=== PATIENT | female | born 1995 | race Caucasian/White ===

== ENCOUNTER 2016-08-27 09:07 | Emergency (ER) | payer OTHER ==
[2016-08-27 09:25] VITALS: BP 113/78; PULSE 63; RESP 17; TEMP 98.3
--- NOTE | 2016-08-27 09:30 | ED ---
ENT HPI - General Chief complaint: ENT Stated complaint: congestion Time Seen by Provider: 08/27/16 09:26 Source: patient, RN notes reviewed Mode of arrival: ambulatory Limitations: no limitations - History of Present Illness Initial comments: 21-year-old female presents emergency Department chief complaint congestion, right ear pressure. Patient states she's been sick over the last few days with runny nose and sinus congestion. Still slight cough but is nonproductive and denies any chest pain or shortness breath. Patient denies fever, chills. Patient has been taken some acetaminophen [id number] for her right ear pain. She states she just feels full and is occasionally popping. She did have one episode of dizziness. Patient denies any sick contacts. Patient offers no other complaints. - Related Data Previous Rx's Medication Instructions Recorded methylPREDNISolone [Medrol Dose 4 mg PO DIRECTED #1 pack 08/27/16 Pack] Allergies Allergy/AdvReac Type Severity Reaction Status Date / Time Penicillins Allergy Rash/Hives Verified 08/27/16 09:34 Review of Systems ROS Statement: Those systems with pertinent positive or pertinent negative responses have been documented in the HPI. ROS Other: All systems not noted in ROS Statement are negative. Past Medical History Past Medical History: No Reported History History of Any Multi-Drug Resistant Organisms: None Reported Past Surgical History: Hernia Repair Past Psychological History: No Psychological Hx Reported Smoking Status: Current every day smoker Past Alcohol Use History: None Reported Past Drug Use History: Marijuana General Exam Limitations: no limitations General appearance: alert, in no apparent distress Head exam: Present: atraumatic, normocephalic, normal inspection Eye exam: Present: normal appearance, PERRL, EOMI. Absent: scleral icterus, conjunctival injection, periorbital swelling ENT exam: Present: normal oropharynx, mucous membranes moist, normal external ear exam. Absent: TM's normal bilaterally (Air-fluid level noted the right TM, no erythema) Neck exam: Present: normal inspection, full ROM. Absent: tenderness, meningismus, lymphadenopathy Respiratory exam: Present: normal lung sounds bilaterally. Absent: respiratory distress, wheezes, rales, rhonchi, stridor Cardiovascular Exam: Present: regular rate, normal rhythm, normal heart sounds. Absent: systolic murmur, diastolic murmur, rubs, gallop, clicks Course Vital Signs 08/27/16 09:22 Temperature 98.3 F Pulse Rate 63 Respiratory 17 Rate Blood Pressure 113/78 O2 Sat by Pulse 100 Oximetry Medical Decision Making - Medical Decision Making 21-year-old female presented for congestion. Patient has a URI. Patient has right eustachian tube dysfunction. She is advised to go [id number] decongestants and [id number] cough and cold medications as directed. Return parameters were discussed. Disposition Clinical Impression: Eustachian tube dysfunction, URI (upper respiratory infection) Disposition: HOME SELF-CARE Condition: Stable Instructions: Earache (ED) Additional Instructions: Please return to the Emergency Department if symptoms worsen or any other concerns. Prescriptions: methylPREDNISolone [Medrol Dose Pack] 4 mg PO DIRECTED #1 pack Referrals: None,Stated [Primary Care Provider] - 1-2 days Time of Disposition: 09:30
== END 2016-08-27 09:57 | disposition home or self-care (01) ==
LOC: EC 09:07
DX: J06.9 Acute upper respiratory infection, unspecified (principal); H69.81 Other specified disorders of Eustachian tube, right ear; F17.200 Nicotine dependence, unspecified, uncomplicated; Z88.0 Allergy status to penicillin
CPT/HCPCS: 99283

== ENCOUNTER 2016-09-14 22:58 | Emergency (ER) | payer OTHER ==
[2016-09-14 23:29] VITALS: RESP 18
[2016-09-14] MEDS ORDERED: SODIUM CHLORIDE 0.9% 500 ML IV STA (23:42)
--- NOTE | 2016-09-15 00:12 | ED ---
Abdominal Pain HPI - General Chief Complaint: Abdominal Pain Stated Complaint: R Flank Pain Time Seen by Provider: 09/14/16 23:42 Source: patient Mode of arrival: ambulatory Limitations: no limitations - History of Present Illness Initial Comments: 21-year-old female patient presents to emergency department today for complaints of right lower quadrant abdominal pain that radiates to her back. Patient states the pain started 3 days ago in her lower back and has now radiated around to the front, and is starting to radiate down into her hip. Patient states that the pain is all across her low back, and feels like it is in her tailbone. Patient states she has been nauseated with this. She denies any vomiting, constipation, or diarrhea. She denies any hematuria, dysuria, any urgency, fever, chills, dizziness, or weakness. Patient states that she is having urinary frequency. Denies any vaginal bleeding, discharge, itching, or odor. Patient's last menstrual period was in July. Patient states that her periods are usually irregular. is a possibility. - Related Data Previous Rx's Medication Instructions Recorded Hydrocodone/Acetaminophen [[place] 1 tab PO Q6HR PRN #15 tab 09/15/16 5-325] Allergies Allergy/AdvReac Type Severity Reaction Status Date / Time Penicillins Allergy Rash/Hives Verified 09/14/16 23:29 Review of Systems ROS Statement: Those systems with pertinent positive or pertinent negative responses have been documented in the HPI. ROS Other: All systems not noted in ROS Statement are negative. Past Medical History Past Medical History: No Reported History History of Any Multi-Drug Resistant Organisms: None Reported Past Surgical History: Hernia Repair Past Psychological History: No Psychological Hx Reported Smoking Status: Current every day smoker Past Alcohol Use History: None Reported Past Drug Use History: Marijuana General Exam Limitations: no limitations General appearance: alert, in no apparent distress Eye exam: Present: normal appearance, PERRL, EOMI. Absent: scleral icterus, conjunctival injection, periorbital swelling ENT exam: Present: normal exam, mucous membranes moist Neck exam: Present: normal inspection. Absent: tenderness, meningismus, lymphadenopathy Respiratory exam: Present: normal lung sounds bilaterally. Absent: respiratory distress, wheezes, rales, rhonchi, stridor Cardiovascular Exam: Present: regular rate, normal rhythm, normal heart sounds. Absent: systolic murmur, diastolic murmur, rubs, gallop, clicks GI/Abdominal exam: Present: soft, tenderness (Right lower quadrant), normal bowel sounds. Absent: distended, guarding, rebound, rigid Expanded GI/Abdominal exam: Present: obturator sign Back exam: Present: normal inspection, other (Negative straight leg test right) . Absent: tenderness, CVA tenderness (R), CVA tenderness (L) Neurological exam: Present: alert, oriented X3, CN II-XII intact Psychiatric exam: Present: normal affect, normal mood Skin exam: Present: warm, dry, intact, normal color. Absent: rash Course Vital Signs 09/14/16 09/15/16 23:27 00:53 Temperature 98.7 F 99.4 F Pulse Rate 60 87 Respiratory 18 18 Rate Blood Pressure 117/78 111/62 O2 Sat by Pulse 97 96 Oximetry Medical Decision Making - Medical Decision Making 21-year-old female patient presented to emergency department today for complaints of right lower quadrant and lower back pain. Lab work was unremarkable other than a white blood cell count of 11.3. Patient states that she has had an elevated white blood cell count since delivering her child. Urinalysis was negative for any acute process. CT of the abdomen and pelvis did show a possible ovarian cyst on the right side. No definite appendicitis shown on CT of the abdomen and pelvis. Patient's symptoms do not seem to be consistent at this time with acute appendicitis. Patient will be discharged home with pain medication as well as instructions about her primary care physician for recheck in one to 2 days. Patient instructed to return immediately for any new, worsening, or concerning symptoms. - Lab Data Result diagrams: 09/15/16 00:16 09/15/16 00:16 Lab Results 09/15/16 09/15/16 09/15/16 Range/Units 00:16 00:16 00:16 WBC 11.3 H (3.8-10.6) k/uL RBC 4.93 (3.80-5.40) m/uL Hgb 13.9 (11.4-16.0) gm/dL Hct 41.6 (34.0-46.0) % MCV 84.5 (80.0-100.0) fL MCH 28.3 (25.0-35.0) pg MCHC 33.4 (31.0-37.0) g/dL RDW 12.8 (11.5-15.5) % Plt Count 203 (150-450) k/uL Neutrophils % 62 % Lymphocytes % 30 % Monocytes % 4 % Eosinophils % 1 % Basophils % 0 % Neutrophils # 7.0 (1.3-7.7) k/uL Lymphocytes # 3.4 (1.0-4.8) k/uL Monocytes # 0.5 (0-1.0) k/uL Eosinophils # 0.1 (0-0.7) k/uL Basophils # 0.1 (0-0.2) k/uL Sodium 139 (137-145) mmol/L Potassium 4.0 (3.5-5.1) mmol/L Chloride 104 (98-107) mmol/L Carbon Dioxide 27 (22-30) mmol/L Anion Gap 8 mmol/L BUN 10 (7-17) mg/dL Creatinine 0.60 (0.52-1.04) mg/dL Est GFR (MDRD) Af Amer >60 (>60 ml/min/1.73 sqM) Est GFR (MDRD) Non-Af >60 (>60 ml/min/1.73 sqM) Glucose 90 (74-99) mg/dL Calcium 9.9 (8.4-10.2) mg/dL Total Bilirubin 0.5 (0.2-1.3) mg/dL AST 29 (14-36) U/L ALT 42 (9-52) U/L Alkaline Phosphatase 54 (38-126) U/L Total Protein 7.3 (6.3-8.2) g/dL Albumin 4.3 (3.5-5.0) g/dL Amylase 47 (30-110) U/L Lipase 68 (23-300) U/L Urine Color Urine Appearance (Clear) Urine pH (5.0-8.0) Ur Specific [place] (1.001-1.035) Urine Protein (Negative) Urine Glucose (UA) (Negative) Urine Ketones (Negative) Urine Blood (Negative) Urine Nitrite (Negative) Urine Bilirubin (Negative) Urine Urobilinogen (<2.0) mg/dL Ur Leukocyte Esterase (Negative) Urine HCG, Qual Not Detected (Not Detectd) 09/15/16 Range/Units 00:16 WBC (3.8-10.6) k/uL RBC (3.80-5.40) m/uL Hgb (11.4-16.0) gm/dL Hct (34.0-46.0) % MCV (80.0-100.0) fL MCH (25.0-35.0) pg MCHC (31.0-37.0) g/dL RDW (11.5-15.5) % Plt Count (150-450) k/uL Neutrophils % % Lymphocytes % % Monocytes % % Eosinophils % % Basophils % % Neutrophils # (1.3-7.7) k/uL Lymphocytes # (1.0-4.8) k/uL Monocytes # (0-1.0) k/uL Eosinophils # (0-0.7) k/uL Basophils # (0-0.2) k/uL Sodium (137-145) mmol/L Potassium (3.5-5.1) mmol/L Chloride (98-107) mmol/L Carbon Dioxide (22-30) mmol/L Anion Gap mmol/L BUN (7-17) mg/dL Creatinine (0.52-1.04) mg/dL Est GFR (MDRD) Af Amer (>60 ml/min/1.73 sqM) Est GFR (MDRD) Non-Af (>60 ml/min/1.73 sqM) Glucose (74-99) mg/dL Calcium (8.4-10.2) mg/dL Total Bilirubin (0.2-1.3) mg/dL AST (14-36) U/L ALT (9-52) U/L Alkaline Phosphatase (38-126) U/L Total Protein (6.3-8.2) g/dL Albumin (3.5-5.0) g/dL Amylase (30-110) U/L Lipase (23-300) U/L Urine Color Colorless Urine Appearance Clear (Clear) Urine pH 6.5 (5.0-8.0) Ur Specific [place] 1.004 (1.001-1.035) Urine Protein Negative (Negative) Urine Glucose (UA) Negative (Negative) Urine Ketones Negative (Negative) Urine Blood Negative (Negative) Urine Nitrite Negative (Negative) Urine Bilirubin Negative (Negative) Urine Urobilinogen <2.0 (<2.0) mg/dL Ur Leukocyte Esterase Negative (Negative) Urine HCG, Qual (Not Detectd) - Radiology Data Radiology results: report reviewed, image reviewed CT abdomen and pelvis impression #1. Small free fluid in the pelvis at 1.6 and a beta peripherally enhancing internally crenulated collapsed left adnexal cyst which likely represents a copious luteal cyst or involuting ovarian cyst. #2 is symmetric heterogeneity of enhancement in the right kidney and delayed imaging may be secondary to a prominent common per 10 as first pass imaging appears grossly normal. Right-sided pyelonephritis not excluded. Correlate with presentation urinalysis is indicated. #3 appendix not definitively identified. A 7.4 mm tubular structure posterior to the cecum were likely represents a decompressed ileal loop any dilated appendix, however, this cannot be entirely certain. There is no radiopaque appendicolith or focal right lower quadrant inflammatory stranding. Correlate with any clinical suspicion for acute appendicitis. Therefore no free air, small bowel infection, colonic wall thickening, hydroureteronephrosis, or biliary ductal dilatation. X-ray abdomen 2 view reveals no radiographic evidence for small bowel structure free air. Single mildly prominent small bowel measuring 2.5 cm in the mid abdomen could be within the spectrum abnormal indicative of mild enteritis versus focal ileus. Gas and stool present throughout the colon to level of the rectum. Possible mild hepatomegaly. Disposition Clinical Impression: Abdominal pain, Back pain, Ovarian cyst Disposition: HOME SELF-CARE Condition: Stable Instructions: Abdominal Pain (ED), Ovarian Cyst (ED) Additional Instructions: Follow-up with primary care physician in one to 2 days for recheck. Take pain medication as directed. Return for any new, worsening, or concerning symptoms. Prescriptions: Hydrocodone/Acetaminophen [[place] 5-325] 1 tab PO Q6HR PRN #15 tab PRN Reason: Pain Referrals: None,Stated [Primary Care Provider] - 1-2 days Time of Disposition: 02:17
[2016-09-15 00:37] LABS: Basophils # (A) 0.1 k/uL (0-0.2); Basophils % (A) 0 %; CH 27.1; CHCM 32.2; Eosinophils # (A) 0.1 k/uL (0-0.7); Eosinophils % (A) 1 %; HCT 41.6 % (34.0-46.0); HDW 2.14; HGB 13.9 gm/dL (11.4-16.0); Luc # (Auto) 0.23; Luc % (Auto) 2; Lymphocytes # (A) 3.4 k/uL (1.0-4.8); Lymphocytes % (A) 30 %; MCH 28.3 pg (25.0-35.0); MCHC 33.4 g/dL (31.0-37.0); MCV 84.5 fL (80.0-100.0); Mean Platelet Volume 7.7; Monocytes # (A) 0.5 k/uL (0-1.0); Monocytes % (A) 4 %; Neutrophils % (A) 62 %; RBC 4.93 m/uL (3.80-5.40); RDW 12.8 % (11.5-15.5); WBC 11.3 k/uL (3.8-10.6); WBC (Perox) 11.25
[2016-09-15 00:40] LABS: Appearance,Urine Clear (Clear); Bilirubin,Urine Negative (Negative); Glucose,Urine (UA) Negative (Negative); Ketones,Urine Negative (Negative); Leukocyte Esterase,Urine Negative (Negative); Nitrite,Urine Negative (Negative); PH, Urine 6.5 (5.0-8.0); Protein,Urine Negative (Negative); Specific Gravity,Urine 1.004 (1.001-1.035); UA Billing (MACRO vs. MICRO) CHEM; Urobilinogen,Urine <2.0 mg/dL (<2.0)
[2016-09-15 00:47] LABS: ALT 42 U/L (9-52); AST 29 U/L (14-36); Alkaline Phosphatase 54 U/L (38-126); Amylase 47 U/L (30-110); Anion Gap 8 mmol/L; Blood Urea Nitrogen 10 mg/dL (7-17); Calcium 9.9 mg/dL (8.4-10.2); Carbon Dioxide 27 mmol/L (22-30); Chloride 104 mmol/L (98-107); Glucose 90 mg/dL (74-99); Non-African American GFR(MDRD) >60 (>60 ml/min/1.73 sqM); Sodium 139 mmol/L (137-145); Total Bilirubin 0.5 mg/dL (0.2-1.3); Total Protein 7.3 g/dL (6.3-8.2)
[2016-09-15] MEDS ORDERED: ONDANSETRON 4 MG/2 ML VIAL IVP STA (00:53)
[2016-09-15] MEDS ORDERED: RX INFO: IV CONTRAST WAS GIVEN 1 EACH MISC MISCELLANE PRN (01:04)
--- NOTE | 2016-09-15 01:07 | XR ---
ADDENDUM - Added by Mykel Borden M.D. on 09/15/2016 1:42 AM (-07:00) Subsequently, CT abdomen/pelvis was performed which showed normal hepatic span without evidence for hepatomegaly. EXAM: XR Abdomen Complete, 2 Views. CLINICAL HISTORY: Low abdominal pain and right flank pain. TECHNIQUE: Frontal view of the abdomen/pelvis with upright view of the abdomen. COMPARISON: No relevant prior studies available. FINDINGS: Intraperitoneal space: No free air on the upright view. Gastrointestinal tract: Gas and stool present throughout the colon to the level of the rectum. A single mildly prominent (2.5 cm) small bowel loop is present in the mid abdomen. No conventional radiographic evidence for small bowel obstruction. Organs: Prominence of the right hepatic lobe suspected (18.5 cm). Bones/joints: Unremarkable. IMPRESSION: 1. No radiographic evidence for small bowel obstruction or free air. 2. Single mildly prominent small bowel loops measuring 2.5 cm in the mid abdomen could be within the spectrum of normal or indicative of mild enteritis versus focal ileus. 3. Gas and stool present throughout the colon to the level of the rectum. 4. Possible mild hepatomegaly.
--- NOTE | 2016-09-15 02:03 | CT ---
EXAM: CT Abdomen and Pelvis With Intravenous Contrast. CLINICAL HISTORY: Low abdominal pain, right flank pain, and nausea TECHNIQUE: Axial computed tomography images of the abdomen and pelvis with intravenous contrast. CTDI is 24.45 mGy and DLP is 954 mGy-cm This CT exam was performed using one or more of the following dose reduction techniques: automated exposure control, adjustment of the mA and/or kV according to patient size, and/or use of iterative reconstruction technique. Coronal and sagittal reformatted images were created and reviewed. CONTRAST: 100 mL of Omnipaque 300 administered intravenously. COMPARISON: Abdominal radiographs 09/15/2016 FINDINGS: Lower thorax: No acute findings. Visualized lung bases are clear and there is no pleural or pericardial effusion. ABDOMEN: Liver: Unremarkable. No intrahepatic biliary ductal dilatation or focal enhancing mass. Gallbladder and bile ducts: Unremarkable. No radiopaque gallstones or common bile duct dilatation. Pancreas: Unremarkable. No ductal dilatation, focal mass, or peripancreatic inflammatory stranding. Spleen: Unremarkable. No splenomegaly. Adrenals: Unremarkable. No mass. Kidneys and ureters: Asymmetric heterogeneity of enhancement in the right kidney on delayed imaging may be secondary to a prominent column of [place]. Pyelonephritis not excluded. No hydronephrosis. Stomach and bowel: Unremarkable. No small bowel obstruction. No bowel wall thickening allowing for underdistention. Appendix: Appendix not discretely identified. A 7.4 mm tubular structure posterior to the cecum (series 3, image 70) may represent a decompressed ileal loop. Dilated appendix not entirely excluded. No focal periappendiceal inflammatory stranding or radiopaque appendicolith. PELVIS: Bladder: Unremarkable. Unremarkable. Reproductive: 1.6 cm peripherally enhancing internally crenulated collapsed left adnexal cyst which likely represents a corpus luteal cyst or involuting ovarian cyst. ABDOMEN and PELVIS: Intraperitoneal space: Small free fluid in the pelvis. No free air. Bones/joints: No acute fracture. No dislocation. Soft tissues: Tiny fat-containing umbilical hernia. Vasculature: Unremarkable. No abdominal aortic aneurysm. Lymph nodes: Unremarkable. No enlarged lymph nodes. IMPRESSION: 1. Small free fluid in the pelvis with 1.6 cm peripherally enhancing internally crenulated collapsed left adnexal cyst which likely represents a corpus luteal cyst or involuting ovarian cyst. Pelvic ultrasound could further assess as indicated. 2. Asymmetric heterogeneity of enhancement in the right kidney on delayed imaging may be secondary to a prominent column of [place] as first pass imaging appears grossly normal. Right-sided pyelonephritis not excluded. Correlate with presentation and urinalysis as indicated. 3. Appendix not definitively identified. A 7.4 mm tubular structure posterior to the cecum (series 3, image 70) more likely represents a decompressed ileal loop than a dilated appendix, however, this cannot be entirely certain. There is no radiopaque appendicolith or focal right lower quadrant inflammatory stranding. Correlate with any clinical suspicion for acute appendicitis. If indicated, followup evaluation with oral or rectal contrast could be performed to assess for appendiceal filling. 4. No free air, small bowel obstruction, colonic wall thickening, hydroureteronephrosis, or biliary ductal dilatation. [employer] 09/15/16 02:11 Verify Receipt Verified receipt with Twila in the ER, report handed to CANDY Lemons on 09/15 02:11 (-04:00)
[2016-09-15 02:17] VITALS: BP 109/56; PULSE 71; TEMP 98.8
== END 2016-09-15 02:20 | disposition home or self-care (01) ==
LOC: EC 22:58
DX: N83.202 Unspecified ovarian cyst, left side (principal); R93.421 Abnormal radiologic findings on diagnostic imaging of right kidney; R10.31 Right lower quadrant pain; M25.559 Pain in unspecified hip; R35.0 Frequency of micturition; R11.0 Nausea; F17.200 Nicotine dependence, unspecified, uncomplicated; Z88.0 Allergy status to penicillin
CPT/HCPCS: 36415; 80053; 82150; 83690; 85025; 81003; 81025; 74000; 74177; 99284; 96374; 96361; J2405; Q9967

== ENCOUNTER 2016-10-18 06:42 | Emergency (ER) | payer OTHER ==
[2016-10-18] MEDS ORDERED: HYDROcodone/APAP 5-325MG 1 EACH TAB PO STA (07:30)
--- NOTE | 2016-10-18 07:39 | ED ---
General Adult HPI - General Chief complaint: Urogenital Stated complaint: female Time Seen by Provider: 10/18/16 07:23 Source: patient, RN notes reviewed, old records reviewed Mode of arrival: ambulatory Limitations: no limitations - History of Present Illness Initial comments: This is a 21-year-old female here for evaluation of bowel pain bowel pressure. Suprapubic abdominal pain. History of a . Patient did have. No shortness normal earlier than normal and about a week ago. Not currently bleeding. No nausea vomiting or diarrhea. No other fevers. No his surgical history - Related Data Previous Rx's Medication Instructions Recorded Nitrofurantoin Monohyd/M-Cryst 100 mg PO Q12HR #10 cap 10/18/16 [Macrobid] Allergies Allergy/AdvReac Type Severity Reaction Status Date / Time Penicillins Allergy Rash/Hives Verified 10/18/16 07:36 Review of Systems ROS Statement: Those systems with pertinent positive or pertinent negative responses have been documented in the HPI. ROS Other: All systems not noted in ROS Statement are negative. Past Medical History Past Medical History: No Reported History History of Any Multi-Drug Resistant Organisms: None Reported Past Surgical History: Hernia Repair Past Psychological History: No Psychological Hx Reported Smoking Status: Current every day smoker Past Alcohol Use History: None Reported Past Drug Use History: Marijuana General Exam Limitations: no limitations General appearance: alert, in no apparent distress Head exam: Present: atraumatic, normocephalic, normal inspection Eye exam: Present: normal appearance, PERRL, EOMI. Absent: scleral icterus, conjunctival injection, periorbital swelling ENT exam: Present: normal exam, mucous membranes moist Neck exam: Present: normal inspection. Absent: tenderness, meningismus, lymphadenopathy Respiratory exam: Present: normal lung sounds bilaterally. Absent: respiratory distress, wheezes, rales, rhonchi, stridor Cardiovascular Exam: Present: regular rate, normal rhythm, normal heart sounds. Absent: systolic murmur, diastolic murmur, rubs, gallop, clicks GI/Abdominal exam: Present: soft, normal bowel sounds. Absent: distended, tenderness, guarding, rebound, rigid Extremities exam: Present: normal inspection, full ROM, normal capillary refill. Absent: tenderness, pedal edema, joint swelling, calf tenderness Back exam: Present: normal inspection Neurological exam: Present: alert, oriented X3, CN II-XII intact Psychiatric exam: Present: normal affect, normal mood Skin exam: Present: warm, dry, intact, normal color. Absent: rash Course Vital Signs 10/18/16 10/18/16 10/18/16 06:45 07:49 09:11 Temperature 97.9 F 97.5 F L 97.6 F Pulse Rate 98 87 79 Respiratory 16 16 16 Rate Blood Pressure 130/63 126/84 120/55 O2 Sat by Pulse 98 98 99 Oximetry Medical Decision Making - Medical Decision Making 21. ER for evaluation of cerumen with bowel pain, positive urinary tract infection, we'll culture urine and started on antibiotics - Lab Data Lab Results 10/18/16 10/18/16 Range/Units 07:34 07:34 Urine Color Yellow Urine Appearance Cloudy H (Clear) Urine pH 6.0 (5.0-8.0) Ur Specific [place] 1.014 (1.001-1.035) Urine Protein 1+ H (Negative) Urine Glucose (UA) Negative (Negative) Urine Ketones Negative (Negative) Urine Blood Moderate H (Negative) Urine Nitrite Positive H (Negative) Urine Bilirubin Negative (Negative) Urine Urobilinogen <2.0 (<2.0) mg/dL Ur Leukocyte Esterase Large H (Negative) Urine RBC >182 H (0-5) /hpf Urine WBC 158 H (0-5) /hpf Urine WBC Clumps Many H (None) /hpf Ur Squamous Epith Cells 1 (0-4) /hpf Urine Bacteria Rare H (None) /hpf Urine HCG, Qual Not Detected (Not Detectd) - Radiology Data Radiology results: report reviewed (Ultrasound pelvis is negative for acute disease), image reviewed Disposition Clinical Impression: Urinary tract infection Disposition: HOME SELF-CARE Condition: Good Instructions: Urinary Tract Infection in Women (ED) Prescriptions: Nitrofurantoin Monohyd/M-Cryst [Macrobid] 100 mg PO Q12HR #10 cap Referrals: None,Stated [Primary Care Provider] - 1-2 days
[2016-10-18 08:00] LABS: Appearance,Urine Cloudy (Clear); Bacteria,Urine Rare /hpf; Bilirubin,Urine Negative (Negative); Glucose,Urine (UA) Negative (Negative); Ketones,Urine Negative (Negative); Leukocyte Esterase,Urine Large (Negative); Nitrite,Urine Positive (Negative); Particle Count 13154; Protein,Urine 1+ (Negative); RBC,Urine >182 /hpf (0-5); Specific Gravity,Urine 1.014 (1.001-1.035); Squamous Epithelial Cell,Urine 1 /hpf (0-4); UA Billing (MACRO vs. MICRO) MICRO; Urobilinogen,Urine <2.0 mg/dL (<2.0); WBC,Urine 158 /hpf (0-5)
[2016-10-18] MEDS ORDERED: cefTRIAXone 250 MG VIAL IM STA (08:18)
[2016-10-18] MEDS ORDERED: AZITHROMYCIN 500 MG TAB PO STA (08:18)
--- NOTE | 2016-10-18 09:17 | US ---
EXAMINATION TYPE: US transvaginal plus Dopplers DATE OF EXAM: 10/18/2016 8:59 AM COMPARISON: NONE CLINICAL HISTORY: 21-year-old female with Pain. Date of LMP: 10/15/16 TECHNIQUE: Multiple transvaginal sonographic images of the pelvis are obtained. Color Doppler and sp ectral waveform analysis of the ovarian arteries and veins. FINDINGS: Uterus: Retroverted measuring 7.0 x 4.0 x 5.1 cm. There is mild myometrial heterogeneity without foca l fibroid. Endometrial Stripe: 0.4 cm Right Ovary: 3.0 x 2.5 x 2.0 cm for a volume of 8.0 mL. Follicular change is present. Satisfactory a rterial and venous flow is demonstrated. Left Ovary: 3.5 x 2.0 x 2.0 cm 4 volume of 7.1 mL. Follicular change is present. Satisfactory arteri al and venous flow is demonstrated. Small amount of left adnexal free fluid is noted probably physiologic. No cul-de-sac free fluid. IMPRESSION: 1. No sonographic evidence for ovarian torsion. Normal-sized ovaries with follicular change on both s ides. 2. Mild myometrial heterogeneity is nonspecific. Correlate for possible diffuse small fibroid change or adenomyosis. 3. Trace left adnexal free fluid likely physiologic.
[2016-10-18 10:16] VITALS: BP 113/66; PULSE 60; RESP 18; TEMP 97.8
== END 2016-10-18 10:16 | disposition home or self-care (01) ==
LOC: EC 06:42
DX: N39.0 Urinary tract infection, site not specified (principal); F17.200 Nicotine dependence, unspecified, uncomplicated; Z88.0 Allergy status to penicillin
CPT/HCPCS: 99284; 96372; 81001; 81025; 87491; 87591; 87086; 93975; 76830; J0696; 87077; 87186

== ENCOUNTER 2017-01-27 19:18 | Emergency (ER) | payer OTHER ==
[2017-01-27 19:49] VITALS: BP 134/75; PULSE 93; RESP 18; TEMP 97.1
--- NOTE | 2017-01-27 20:00 | ED ---
General Adult HPI - General Chief complaint: ENT Stated complaint: ENT Time Seen by Provider: 01/27/17 19:51 Source: patient, RN notes reviewed Mode of arrival: ambulatory Limitations: no limitations - History of Present Illness Initial comments: Patient 21-year-old female who presents emergency room today with a chief complaint of sinus infection. She admits that over the last month she's been congested feeling pressure ears. States that she's feeling a pop when she blows her nose. Does admit to increased rhinorrhea and drainage. States she's been trying some [id number] medications with little relief the symptoms. Patient denies any other complaints. Patient denies any recent fever, chills, shortness of breath, chest pain, back pain, abdominal pain, nausea or vomiting, numbness or tingling, dysuria or hematuria, constipation or diarrhea, headaches or visual changes, or any other complaints. - Related Data Previous Rx's Medication Instructions Recorded Amoxicillin/Potassium Clav 1 each PO Q12HR #20 tab 01/27/17 [Augmentin 875-125 Tablet] Fluticasone Propionate [Flonase 1 - 2 spray EA NOSTRIL DAILY 5 Days 01/27/17 Allergy Relief] Allergies Allergy/AdvReac Type Severity Reaction Status Date / Time Penicillins Allergy Rash/Hives Verified 01/27/17 19:49 Review of Systems ROS Statement: Those systems with pertinent positive or pertinent negative responses have been documented in the HPI. ROS Other: All systems not noted in ROS Statement are negative. Past Medical History Past Medical History: No Reported History History of Any Multi-Drug Resistant Organisms: None Reported Past Surgical History: Hernia Repair Past Psychological History: No Psychological Hx Reported Smoking Status: Current every day smoker Past Alcohol Use History: None Reported Past Drug Use History: Marijuana General Exam - General Exam Comments Initial Comments: General: The patient is awake and alert, in no distress, and does not appear acutely ill. Eye: Pupils are equal, round and reactive to light, extra-ocular movements are intact. No nystagmus. There is normal conjunctiva bilaterally. No signs of icterus. Ears, nose, mouth and throat: There are moist mucous membranes and no oral lesions. Tender over the maxillary sinuses. Neck: The neck is supple, there is no tenderness or JVD. Cardiovascular: There is a regular rate and rhythm. No murmur, rub or gallop is appreciated. Respiratory: Lungs are clear to auscultation, respirations are non-labored, breath sounds are equal. No wheezes, stridor, rales, or rhonchi. Musculoskeletal: Normal ROM, no tenderness. Strength 5/5. Sensation intact. Pulses equal bilaterally 2+. Neurological: A&O x 3. CN II-XII intact, There are no obvious motor or sensory deficits. Coordination appears grossly intact. Speech is normal. Skin: Skin is warm and dry and no rashes or lesions are noted. Psychiatric: Cooperative, appropriate mood & affect, normal judgment. Limitations: no limitations Course Vital Signs 01/27/17 19:48 Temperature 97.1 F L Pulse Rate 93 Respiratory 18 Rate Blood Pressure 134/75 O2 Sat by Pulse 97 Oximetry Medical Decision Making - Medical Decision Making Patient does admit that she's been on Augmentin in the past for sinus infections emotional does have a penicillin ALLERGY which she admits is hives. Patient will be given a prescription for Flonase L long with Augmentin she states she has had before. Advised follow-up family doctor return if any symptoms increase or worsen. Disposition Clinical Impression: Acute sinusitis Disposition: HOME SELF-CARE Condition: Good Instructions: Sinusitis (ED) Additional Instructions: Please use medication as discussed. Please follow-up with family doctor in the next 2 days of symptoms have not improved. Please return to emergency room if the symptoms increase or worsen or for any other concerns. Prescriptions: Amoxicillin/Potassium Clav [Augmentin 875-125 Tablet] 1 each PO Q12HR #20 tab Fluticasone Propionate [Flonase Allergy Relief] 1 - 2 spray EA NOSTRIL DAILY 5 Days Referrals: None,Stated [Primary Care Provider] - 1-2 days Time of Disposition: 19:59
== END 2017-01-27 20:07 | disposition home or self-care (01) ==
LOC: EC 19:18
DX: J01.90 Acute sinusitis, unspecified (principal); F17.200 Nicotine dependence, unspecified, uncomplicated; Z88.0 Allergy status to penicillin
CPT/HCPCS: 99282

== ENCOUNTER 2017-10-19 10:01 | Emergency (ER) | payer BC, OTHER ==
[2017-10-19] MEDS ORDERED: SODIUM CHLORIDE 0.9% 1,000 ML IV STA (10:20)
[2017-10-19] MEDS ORDERED: ONDANSETRON 4 MG/2 ML VIAL IVP STA (10:20)
--- NOTE | 2017-10-19 10:22 | ED ---
General Adult HPI - General Chief complaint: Abdominal Pain Stated complaint: Vomiting Time Seen by Provider: 10/19/17 10:01 Source: patient, RN notes reviewed Mode of arrival: ambulatory Limitations: no limitations - History of Present Illness Initial comments: This is a 22-year-old female who presents emergency Department with chronic upper abdominal pain. Patient stated she started vomiting again today and became very nauseated so she decided come the emergency department. Patient states last time she was here she was told she couldn't ultrasound of her gallbladder but ultrasound was not injured in the middle the night so she is post follow-up if she did not. Patient states his been no diarrhea. Patient states the pain is in the epigastric area. Patient denies any fever chills. Patient denies any dysuria hematuria urinary frequency. Patient denies any difficulty breathing shortness of breath. Patient denies any recent cough. - Related Data Home Medications Medication Instructions Recorded Confirmed Aspirin EC [Ecotrin Low Dose] 81 mg PO DAILY 10/19/17 10/19/17 Allergies Allergy/AdvReac Type Severity Reaction Status Date / Time Penicillins Allergy Rash/Hives Verified 10/19/17 10:17 Review of Systems ROS Statement: Those systems with pertinent positive or pertinent negative responses have been documented in the HPI. ROS Other: All systems not noted in ROS Statement are negative. Past Medical History Past Medical History: No Reported History History of Any Multi-Drug Resistant Organisms: None Reported Past Surgical History: Hernia Repair Past Psychological History: No Psychological Hx Reported Smoking Status: Current every day smoker Past Alcohol Use History: None Reported, Rare Past Drug Use History: Marijuana General Exam - General Exam Comments Initial Comments: GENERAL: Patient is well-developed and well-nourished. Patient is nontoxic and well- hydrated and is in mild distress. ENT: Neck is soft and supple. No significant lymphadenopathy is noted. Oropharynx is clear. Moist mucous membranes. Neck has full range of motion without eliciting any pain. EYES: The sclera were anicteric and conjunctiva were pink and moist. Extraocular movements were intact and pupils were equal round and reactive to light. Eyelids were unremarkable. PULMONARY: Unlabored respirations. Good breath sounds bilaterally. No audible rales rhonchi or wheezing was noted. CARDIOVASCULAR: There is a regular rate and rhythm without any murmurs gallops or rubs. ABDOMEN: Mild epigastric tenderness No palpable organomegaly was noted. There is no palpable pulsatile mass. SKIN: Skin is clear with no lesions or rashes and otherwise unremarkable. NEUROLOGIC: Patient is alert and oriented x3. Cranial nerves II through XII are grossly intact. Motor and sensory are also intact. Normal speech, volume and content. Symmetrical smile. MUSCULOSKELETAL: Normal extremities with adequate strength and full range of motion. No lower extremity swelling or edema. No calf tenderness. LYMPHATICS: No significant lymphadenopathy is noted PSYCHIATRIC: Normal psychiatric evaluation. Normal interpersonal interactions appears functionally intact in deals appropriately with others. No signs of depression. No signs of anxiety. Limitations: no limitations Course Vital Signs 10/19/17 10:13 Temperature 98.5 F Pulse Rate 71 Respiratory 16 Rate Blood Pressure 158/85 O2 Sat by Pulse 95 Oximetry Medical Decision Making - Medical Decision Making Ultrasound shows no acute abnormality - Lab Data Result diagrams: 10/19/17 10:31 10/19/17 10:31 Lab Results 10/19/17 10/19/17 10/19/17 Range/Units 10:21 10:21 10:31 WBC (3.8-10.6) k/uL RBC (3.80-5.40) m/uL Hgb (11.4-16.0) gm/dL Hct (34.0-46.0) % MCV (80.0-100.0) fL MCH (25.0-35.0) pg MCHC (31.0-37.0) g/dL RDW (11.5-15.5) % Plt Count (150-450) k/uL Neutrophils % % Lymphocytes % % Monocytes % % Eosinophils % % Basophils % % Neutrophils # (1.3-7.7) k/uL Lymphocytes # (1.0-4.8) k/uL Monocytes # (0-1.0) k/uL Eosinophils # (0-0.7) k/uL Basophils # (0-0.2) k/uL Sodium 140 (137-145) mmol/L Potassium 4.2 (3.5-5.1) mmol/L Chloride 107 (98-107) mmol/L Carbon Dioxide 20 L (22-30) mmol/L Anion Gap 13 mmol/L BUN 7 (7-17) mg/dL Creatinine 0.58 (0.52-1.04) mg/dL Est GFR (CKD-EPI)AfAm >90 (>60 ml/min/1.73 sqM) Est GFR (CKD-EPI)NonAf >90 (>60 ml/min/1.73 sqM) Glucose 112 H (74-99) mg/dL Calcium 9.7 (8.4-10.2) mg/dL Total Bilirubin 0.5 (0.2-1.3) mg/dL AST 18 (14-36) U/L ALT 30 (9-52) U/L Alkaline Phosphatase 68 (38-126) U/L Total Protein 6.4 (6.3-8.2) g/dL Albumin 4.1 (3.5-5.0) g/dL Amylase 38 (30-110) U/L Lipase 39 (23-300) U/L Urine Color Yellow Urine Appearance Cloudy H (Clear) Urine pH 7.5 (5.0-8.0) Ur Specific Geff 1.022 (1.001-1.035) Urine Protein Trace H (Negative) Urine Glucose (UA) Negative (Negative) Urine Ketones Trace H (Negative) Urine Blood Negative (Negative) Urine Nitrite Negative (Negative) Urine Bilirubin Negative (Negative) Urine Urobilinogen <2.0 (<2.0) mg/dL Ur Leukocyte Esterase Negative (Negative) Urine RBC 2 (0-5) /hpf Urine WBC 1 (0-5) /hpf Ur Squamous Epith Cells 7 H (0-4) /hpf Urine Bacteria Rare H (None) /hpf Urine Mucus Few H (None) /hpf Urine HCG, Qual Not Detected (Not Detectd) 10/19/17 Range/Units 10:31 WBC 12.8 H (3.8-10.6) k/uL RBC 5.75 H (3.80-5.40) m/uL Hgb 15.4 (11.4-16.0) gm/dL Hct 46.8 H (34.0-46.0) % MCV 81.4 (80.0-100.0) fL MCH 26.9 (25.0-35.0) pg MCHC 33.0 (31.0-37.0) g/dL RDW 13.2 (11.5-15.5) % Plt Count 213 (150-450) k/uL Neutrophils % 73 % Lymphocytes % 19 % Monocytes % 5 % Eosinophils % 1 % Basophils % 0 % Neutrophils # 9.4 H (1.3-7.7) k/uL Lymphocytes # 2.5 (1.0-4.8) k/uL Monocytes # 0.6 (0-1.0) k/uL Eosinophils # 0.1 (0-0.7) k/uL Basophils # 0.0 (0-0.2) k/uL Sodium (137-145) mmol/L Potassium (3.5-5.1) mmol/L Chloride (98-107) mmol/L Carbon Dioxide (22-30) mmol/L Anion Gap mmol/L BUN (7-17) mg/dL Creatinine (0.52-1.04) mg/dL Est GFR (CKD-EPI)AfAm (>60 ml/min/1.73 sqM) Est GFR (CKD-EPI)NonAf (>60 ml/min/1.73 sqM) Glucose (74-99) mg/dL Calcium (8.4-10.2) mg/dL Total Bilirubin (0.2-1.3) mg/dL AST (14-36) U/L ALT (9-52) U/L Alkaline Phosphatase (38-126) U/L Total Protein (6.3-8.2) g/dL Albumin (3.5-5.0) g/dL Amylase (30-110) U/L Lipase (23-300) U/L Urine Color Urine Appearance (Clear) Urine pH (5.0-8.0) Ur Specific Geff (1.001-1.035) Urine Protein (Negative) Urine Glucose (UA) (Negative) Urine Ketones (Negative) Urine Blood (Negative) Urine Nitrite (Negative) Urine Bilirubin (Negative) Urine Urobilinogen (<2.0) mg/dL Ur Leukocyte Esterase (Negative) Urine RBC (0-5) /hpf Urine WBC (0-5) /hpf Ur Squamous Epith Cells (0-4) /hpf Urine Bacteria (None) /hpf Urine Mucus (None) /hpf Urine HCG, Qual (Not Detectd) Disposition Clinical Impression: Chronic abdominal pain Disposition: HOME SELF-CARE Condition: Good Instructions: Abdominal Pain (ED) Is patient prescribed a controlled substance at d/c from ED?: No Referrals: None,Stated [Primary Care Provider] - 1-2 days Time of Disposition: 11:55
[2017-10-19 10:41] LABS: Appearance,Urine Cloudy (Clear); Bacteria,Urine Rare /hpf; Bilirubin,Urine Negative (Negative); Blood,Urine Negative (Negative); Color,Urine Yellow; Glucose,Urine (UA) Negative (Negative); Ketones,Urine Trace (Negative); Leukocyte Esterase,Urine Negative (Negative); Mucus,Urine Few /hpf; Nitrite,Urine Negative (Negative); PH, Urine 7.5 (5.0-8.0); Protein,Urine Trace (Negative); RBC,Urine 2 /hpf (0-5); Specific Gravity,Urine 1.022 (1.001-1.035); Squamous Epithelial Cell,Urine 7 /hpf (0-4); Urobilinogen,Urine <2.0 mg/dL (<2.0); WBC,Urine 1 /hpf (0-5)
[2017-10-19 10:58] LABS: ALT 30 U/L (9-52); AST 18 U/L (14-36); Albumin 4.1 g/dL (3.5-5.0); Alkaline Phosphatase 68 U/L (38-126); Amylase 38 U/L (30-110); Anion Gap 13 mmol/L; Basophils % (A) 0 %; Blood Urea Nitrogen 7 mg/dL (7-17); Calcium 9.7 mg/dL (8.4-10.2); Carbon Dioxide 20 mmol/L (22-30); Chloride 107 mmol/L (98-107); Eosinophils # (A) 0.1 k/uL (0-0.7); Eosinophils % (A) 1 %; Glucose 112 mg/dL (74-99); HCT 46.8 % (34.0-46.0); HGB 15.4 gm/dL (11.4-16.0); Lipase 39 U/L (23-300); Lymphocytes # (A) 2.5 k/uL (1.0-4.8); Lymphocytes % (A) 19 %; MCH 26.9 pg (25.0-35.0); MCV 81.4 fL (80.0-100.0); Mean Platelet Volume 7.8; Monocytes # (A) 0.6 k/uL (0-1.0); Monocytes % (A) 5 %; Neutrophils # (A) 9.4 k/uL (1.3-7.7); Neutrophils % (A) 73 %; Platelet Count 213 k/uL (150-450); Potassium 4.2 mmol/L (3.5-5.1); RBC 5.75 m/uL (3.80-5.40); RDW 13.2 % (11.5-15.5); Sodium 140 mmol/L (137-145); Total Bilirubin 0.5 mg/dL (0.2-1.3); Total Protein 6.4 g/dL (6.3-8.2); WBC 12.8 k/uL (3.8-10.6)
--- NOTE | 2017-10-19 11:37 | US ---
EXAMINATION TYPE: US gallbladder DATE OF EXAM: 10/19/2017 COMPARISON: CT 09/15/2016 CLINICAL HISTORY: 22-year-old female Pain. Vomiting. TECHNIQUE: Multiple sonographic images of the right upper quadrant are obtained. FINDINGS: Income Tax Manager notes: Slightly limited exam due to overlying bowel gas EXAM MEASUREMENTS: Liver Length: 14.1 cm Gallbladder Wall: 0.2 cm CBD: 0.5 cm Right Kidney: 10.8 x 3.9 x 5.1 cm Pancreas: Tail obscured by overlying bowel gas, visualized portions show no abnormality Liver: wnl Gallbladder: wnl Evidence for sonographic Santamaria's sign: No CBD: wnl Right Kidney: No hydronephrosis. IMPRESSION: Unremarkable sonographic examination of the right upper quadrant.
[2017-10-19 12:14] VITALS: BP 146/85; PULSE 92; RESP 18; TEMP 98.7
== END 2017-10-19 12:20 | disposition home or self-care (01) ==
LOC: EC 10:01
DX: R10.13 Epigastric pain (principal); G89.29 Other chronic pain; R11.2 Nausea with vomiting, unspecified; F17.200 Nicotine dependence, unspecified, uncomplicated; Z88.0 Allergy status to penicillin; Z79.82 Long term (current) use of aspirin
CPT/HCPCS: 99284; 96374; 96361; 36415; 80053; 82150; 83690; 85025; 81001; 81025; 76705; J2405

== ENCOUNTER 2018-01-28 07:53 | Emergency (ER) | payer BC, OTHER ==
[2018-01-28 07:59] VITALS: RESP 18
[2018-01-28] MEDS ORDERED: KETOROLAC 30 MG/ML 1 ML VIAL IVP STA (08:12)
--- NOTE | 2018-01-28 08:14 | ED ---
Chest Pain HPI - General Chief Complaint: Chest Pain Stated Complaint: Chest pain Time Seen by Provider: 01/28/18 08:00 Source: patient, RN notes reviewed Mode of arrival: ambulatory Limitations: no limitations - History of Present Illness Initial Comments: This is a 22-year-old female presents emergency Department with chief complaint of chest discomfort. She states that she's been having pain in her chest and breast region for a while in which she's been seen her PCP for. She states she has a little breast lump in that she is scheduled for ultrasound but states this morning she woke up and she had pain that was different than she has experienced. She states is a centralized chest pain and it hurts when she takes a deep inspiration or she presses on her chest. Patient reports no fever no chills she does have a slight cough and has had some ongoing congestion issues. Patient has had an echo in the past which show no major abnormalities. Patient denies any reflux, abdominal pain, nausea vomiting. Denies any dizziness. She does admit to some shortness of breath. - Related Data Home Medications Medication Instructions Recorded Confirmed Aspirin EC [Ecotrin Low Dose] 81 mg PO DAILY 10/19/17 10/19/17 Previous Rx's Medication Instructions Recorded Ibuprofen [Motrin] 600 mg PO Q8HR PRN #30 tab 01/28/18 Allergies Allergy/AdvReac Type Severity Reaction Status Date / Time Penicillins Allergy Rash/Hives Verified 01/28/18 07:59 Review of Systems ROS Statement: Those systems with pertinent positive or pertinent negative responses have been documented in the HPI. ROS Other: All systems not noted in ROS Statement are negative. EKG Findings - EKG Comments: EKG Findings:: EKG performed at 8:21 normal sinus rhythm with a rate of 61 IL 178 QRS 88 QT/QTC 402/404 Past Medical History Past Medical History: No Reported History History of Any Multi-Drug Resistant Organisms: None Reported Past Surgical History: Hernia Repair Past Psychological History: No Psychological Hx Reported Smoking Status: Current every day smoker Past Alcohol Use History: Rare Past Drug Use History: Marijuana General Exam Limitations: no limitations General appearance: alert, in no apparent distress Head exam: Present: atraumatic, normocephalic, normal inspection Eye exam: Present: normal appearance, PERRL, EOMI. Absent: scleral icterus, conjunctival injection, periorbital swelling ENT exam: Present: normal exam, normal oropharynx, mucous membranes moist, TM's normal bilaterally Neck exam: Present: normal inspection, full ROM. Absent: tenderness, meningismus, lymphadenopathy Respiratory exam: Present: normal lung sounds bilaterally, chest wall tenderness (Midsternal). Absent: respiratory distress, wheezes, rales, rhonchi , stridor Cardiovascular Exam: Present: regular rate, normal rhythm, normal heart sounds. Absent: systolic murmur, diastolic murmur, rubs, gallop, clicks GI/Abdominal exam: Present: soft, normal bowel sounds. Absent: distended, tenderness, guarding, rebound, rigid Back exam: Absent: CVA tenderness (R), CVA tenderness (L) Skin exam: Present: warm, dry, intact, normal color. Absent: rash Course Vital Signs 01/28/18 07:57 Temperature 98.1 F Pulse Rate 72 Respiratory 18 Rate Blood Pressure 123/84 O2 Sat by Pulse 97 Oximetry Chest Pain MDM - MDM 22-year-old female presented to emergency department for symptoms as chest pain. This was reproducible chest pain worse with deep inspiration. Patient's pain seems more consistent with costochondritis. Patient does have some ongoing left breast pain which she has been evaluated for by ultrasound. This is not nature patient's pain this time. Patient did have lab work and EKG all within normal limits. D-dimer was obtained which is negative and no concern for blood clot at this time. Patient will follow-up PCP and return for any worsening symptoms. Disposition Clinical Impression: Chest wall pain, Costochondritis, acute Disposition: HOME SELF-CARE Condition: Stable Instructions: Costochondritis (ED), Chest Pain (ED) Additional Instructions: Please return to the Emergency Department if symptoms worsen or any other concerns. Prescriptions: Ibuprofen [Motrin] 600 mg PO Q8HR PRN #30 tab PRN Reason: Pain Is patient prescribed a controlled substance at d/c from ED?: No Referrals: Panchito Palumbo MD [Primary Care Provider] - 1-2 days Time of Disposition: 09:51
[2018-01-28] MEDS ORDERED: ONDANSETRON 4 MG/2 ML VIAL IVP STA (08:24)
[2018-01-28 08:47] LABS: Basophils # (A) 0.1 k/uL (0-0.2); Basophils % (A) 1 %; Eosinophils # (A) 0.4 k/uL (0-0.7); Eosinophils % (A) 4 %; HCT 41.5 % (34.0-46.0); HGB 13.1 gm/dL (11.4-16.0); Lymphocytes # (A) 3.1 k/uL (1.0-4.8); Lymphocytes % (A) 30 %; MCH 26.4 pg (25.0-35.0); MCHC 31.6 g/dL (31.0-37.0); MCV 83.5 fL (80.0-100.0); Mean Platelet Volume 7.4; Monocytes # (A) 0.5 k/uL (0-1.0); Monocytes % (A) 5 %; Neutrophils # (A) 5.9 k/uL (1.3-7.7); Neutrophils % (A) 58 %; Platelet Count 244 k/uL (150-450); RBC 4.97 m/uL (3.80-5.40); RDW 13.6 % (11.5-15.5); WBC 10.1 k/uL (3.8-10.6)
[2018-01-28 08:57] LABS: ALT 24 U/L (9-52); AST 16 U/L (14-36); Albumin 3.9 g/dL (3.5-5.0); Alkaline Phosphatase 66 U/L (38-126); Anion Gap 8 mmol/L; Blood Urea Nitrogen 13 mg/dL (7-17); Calcium 9.6 mg/dL (8.4-10.2); Carbon Dioxide 21 mmol/L (22-30); Chloride 110 mmol/L (98-107); Glucose 105 mg/dL (74-99); Magnesium 1.7 mg/dL (1.6-2.3); Potassium 4.5 mmol/L (3.5-5.1); Sodium 139 mmol/L (137-145); Total Bilirubin 0.2 mg/dL (0.2-1.3); Total Protein 6.7 g/dL (6.3-8.2)
[2018-01-28 08:59] LABS: D-Dimer 0.25 mg/L FEU (<0.60); Partial Thromboplastin Time 24.1 sec (22.0-30.0); Prothrombin Time 9.9 sec (9.0-12.0)
[2018-01-28 09:14] LABS: Appearance,Urine Cloudy (Clear); Bilirubin,Urine Negative (Negative); Blood,Urine Negative (Negative); Color,Urine Light Yellow; Glucose,Urine (UA) Negative (Negative); Ketones,Urine Negative (Negative); Leukocyte Esterase,Urine Negative (Negative); Mucus,Urine Rare /hpf; Nitrite,Urine Negative (Negative); PH, Urine 5.5 (5.0-8.0); Protein,Urine Negative (Negative); RBC,Urine <1 /hpf (0-5); Specific Gravity,Urine 1.018 (1.001-1.035); Squamous Epithelial Cell,Urine 10 /hpf (0-4); Urobilinogen,Urine <2.0 mg/dL (<2.0); WBC,Urine <1 /hpf (0-5)
--- NOTE | 2018-01-28 09:19 | XR ---
EXAMINATION TYPE: XR chest 2V DATE OF EXAM: 01/28/2018 HISTORY: Chest Pain. REFERENCE: Previous study dated 05/13/2017. FINDINGS: The lungs are clear. Pleural spaces are clear. The heart is not enlarged. IMPRESSION: NORMAL CHEST.
[2018-01-28 10:02] VITALS: BP 114/59; PULSE 54; TEMP 98.2
== END 2018-01-28 10:02 | disposition home or self-care (01) ==
LOC: EC 07:53
DX: M94.0 Chondrocostal junction syndrome [Tietze] (principal); R05 Cough; F17.200 Nicotine dependence, unspecified, uncomplicated; Z98.890 Other specified postprocedural states; Z79.82 Long term (current) use of aspirin; Z88.0 Allergy status to penicillin
CPT/HCPCS: 36415; 93005; 85379; 80053; 83735; 84484; 85025; 85610; 85730; 81001; 81025; 71046; 99285; 96374; 96375; J2405; J1885

== ENCOUNTER → 2018-02-08 | Outpatient (CLI) | payer BC, OTHER ==
--- NOTE | 2018-02-08 09:24 | USB ---
Reason for exam: clinical finding. History: Family history of breast cancer in maternal aunt at age 30 and breast cancer in paternal aunt at age 50. Indicated problem(s): pain in the left breast. Physical Findings: Nurse did not find any significant physical abnormalities on exam. US Breast LT Left complete breast ultrasound includes all four quadrants, the retroareolar region and axilla. Finding demonstrates dilated ducts at posterior nipple. No cystic or solid lesion seen. These results were verbally communicated with the patient and result sheet given to the patient on 02/08/18. ASSESSMENT: Negative, BI-RAD 1 RECOMMENDATION: Routine screening mammogram of both breasts at age 40. (unless clinical indication to start sooner) Manage on a clinical basis with regard to left breast pain.
== END | disposition home or self-care (01) ==
LOC: RADUSWWP 08:23
PROVIDERS: ATTEND Family Medicine
DX: N64.4 Mastodynia (principal)

== ENCOUNTER 2018-03-25 05:51 | Emergency (ER) | payer BC, OTHER ==
--- NOTE | 2018-03-25 06:25 | ED ---
Abdominal Pain HPI - General Source: patient Mode of arrival: ambulatory Limitations: no limitations <Corinne Kowalski - Last Filed: 03/25/18 07:46> <Go Le - Last Filed: 03/25/18 08:50> - General Chief Complaint: Abdominal Pain Stated Complaint: Abdominal Pain Time Seen by Provider: 03/25/18 05:56 - History of Present Illness Initial Comments: Car Dee is a 23-year-old female who presents the emergency department today for evaluation of sudden onset cramping lower abdominal pain. Patient reports she she was at her usual state of health yesterday. She reports she woke from sleep around 5 AM the urge to urinate. She states that when she went to the bathroom she had severe stabbing suprapubic and right lower quadrant pain. Pain was so severe she was unable to urinate. Patient reports she has a history of ovarian cysts but this was significantly more severe than previous cysts rupture. Patient reports her last menstrual period was on February 04, she states that she has irregular menses and has been tying to conceive for 2 years unsuccessfully. Patient is uncertain if she could be at this time. She denies any associated fevers, chills, nausea or vomiting. She denies any pain radiating to her flanks. She denies any concern for sexual transmitted infections. She reports that she feels she's had some clear vaginal discharge recently. (Corinne Kowalski) - Related Data Home Medications Medication Instructions Recorded Confirmed Aspirin EC [Ecotrin Low Dose] 81 mg PO DAILY 10/19/17 10/19/17 Previous Rx's Medication Instructions Recorded Ibuprofen [Motrin] 600 mg PO Q8HR PRN #30 tab 01/28/18 Ibuprofen 800 mg PO Q6HR PRN #20 tablet 03/25/18 Allergies Allergy/AdvReac Type Severity Reaction Status Date / Time Penicillins Allergy Rash/Hives Verified 01/28/18 07:59 Review of Systems ROS Other: All systems not noted in ROS Statement are negative. <Corinne Kowalski - Last Filed: 03/25/18 07:46> ROS Other: All systems not noted in ROS Statement are negative. <Go Le - Last Filed: 03/25/18 08:50> ROS Statement: Those systems with pertinent positive or pertinent negative responses have been documented in the HPI. Past Medical History Past Medical History: No Reported History History of Any Multi-Drug Resistant Organisms: None Reported Past Surgical History: Hernia Repair Past Psychological History: No Psychological Hx Reported Smoking Status: Current every day smoker Past Alcohol Use History: Rare Past Drug Use History: Marijuana <Corinne Kowalski - Last Filed: 03/25/18 07:46> General Exam Limitations: no limitations <Corinne Kowalski - Last Filed: 03/25/18 07:46> <Go Le - Last Filed: 03/25/18 08:50> - General Exam Comments Initial Comments: Physical Exam GENERAL: Patient is well-developed and well-nourished. Patient is nontoxic and well- hydrated and is in no distress. HENT: Normocephalic, Atraumatic. EYES: PERRL, EOMI PULMONARY: Unlabored respirations. No audible rales rhonchi or wheezing was noted. CARDIOVASCULAR: There is a regular rate and rhythm without any murmurs gallops or rubs. ABDOMEN: Soft and nontender with normal bowel sounds. SKIN: Skin is clear with no lesions or rashes and otherwise unremarkable. : Deferred NEUROLOGIC: Patient is alert and oriented x3. Moving all extremities spontaneously MUSCULOSKELETAL: Normal extremities with adequate strength and full range of motion. No lower extremity swelling or edema. No calf tenderness. PSYCHIATRIC: Normal psychiatric evaluation. Limitations: no limitations (Croinne Kowalski) Course <Corinne Kowalski - Last Filed: 03/25/18 07:46> <Go Le - Last Filed: 03/25/18 08:50> Vital Signs 03/25/18 03/25/18 03/25/18 05:52 06:21 06:30 Temperature 96.9 F L Pulse Rate 65 Respiratory 16 Rate Blood Pressure 119/63 104/74 O2 Sat by Pulse 100 100 97 Oximetry 03/25/18 07:00 Temperature Pulse Rate Respiratory Rate Blood Pressure 112/74 O2 Sat by Pulse 98 Oximetry - Reevaluation(s) Reevaluation #1: Patient reevaluated, resting comfortably awaiting ultrasound 03/25/18 07:16 (Corinne Kowalski) Reevaluation #2: 03/25/18 08:48 Patient is having a little more pain at this time I did discuss the findings with her. There is an area of decreased echogenicity the right ovary not clearly from the ovary 2.5 x 2.2 x 1.9 cm. No evidence torsion. I did discuss the case with her and her as well as with Dr. Macario the patient will follow-up this week for further evaluation. (Go Le) Medical Decision Making - Lab Data Result diagrams: 03/25/18 06:48 03/25/18 06:48 <Corinne Kowalski - Last Filed: 03/25/18 07:46> - Lab Data Result diagrams: 03/25/18 06:48 03/25/18 06:48 <Go Le - Last Filed: 03/25/18 08:50> - Medical Decision Making History was obtained from the patient, patient with a history of ovarian cysts in the past. Reports she had a sudden onset of right lower quadrant suprapubic pain. Pain is improved prior to arrival. Urinalysis with no signs of infection, no hematuria suggestive of a kidney stone , urine negative Labs and ultrasound imaging were ordered Labs and no significant abnormalities, no leukocytosis, no elevation of the CRP , normal kidney function Patient care was signed out to Dr. noe at 7:30 AM, he will follow up on the ultrasound and despite the patient. (Corinne Kowalski) - Lab Data Lab Results 03/25/18 03/25/18 03/25/18 Range/Units 06:14 06:14 06:48 WBC (3.8-10.6) k/uL RBC (3.80-5.40) m/uL Hgb (11.4-16.0) gm/dL Hct (34.0-46.0) % MCV (80.0-100.0) fL MCH (25.0-35.0) pg MCHC (31.0-37.0) g/dL RDW (11.5-15.5) % Plt Count (150-450) k/uL Neutrophils % % Lymphocytes % % Monocytes % % Eosinophils % % Basophils % % Neutrophils # (1.3-7.7) k/uL Lymphocytes # (1.0-4.8) k/uL Monocytes # (0-1.0) k/uL Eosinophils # (0-0.7) k/uL Basophils # (0-0.2) k/uL Sodium 137 (137-145) mmol/L Potassium 4.6 (3.5-5.1) mmol/L Chloride 106 (98-107) mmol/L Carbon Dioxide 22 (22-30) mmol/L Anion Gap 9 mmol/L BUN 12 (7-17) mg/dL Creatinine 0.54 (0.52-1.04) mg/dL Est GFR (CKD-EPI)AfAm >90 (>60 ml/min/1.73 sqM) Est GFR (CKD-EPI)NonAf >90 (>60 ml/min/1.73 sqM) Glucose 103 H (74-99) mg/dL Calcium 9.4 (8.4-10.2) mg/dL Total Bilirubin 0.3 (0.2-1.3) mg/dL AST 22 (14-36) U/L ALT 35 (9-52) U/L Alkaline Phosphatase 60 (38-126) U/L C-Reactive Protein <5.0 (<10.0) mg/L Total Protein 6.9 (6.3-8.2) g/dL Albumin 3.9 (3.5-5.0) g/dL Urine Color Yellow Urine Appearance Cloudy H (Clear) Urine pH 6.0 (5.0-8.0) Ur Specific [place] 1.016 (1.001-1.035) Urine Protein Negative (Negative) Urine Glucose (UA) Negative (Negative) Urine Ketones Negative (Negative) Urine Blood Negative (Negative) Urine Nitrite Negative (Negative) Urine Bilirubin Negative (Negative) Urine Urobilinogen <2.0 (<2.0) mg/dL Ur Leukocyte Esterase Negative (Negative) Urine RBC 1 (0-5) /hpf Urine WBC 1 (0-5) /hpf Ur Squamous Epith Cells 4 (0-4) /hpf Urine Bacteria Rare H (None) /hpf Urine Mucus Rare H (None) /hpf Urine HCG, Qual Not Detected (Not Detectd) 03/25/18 Range/Units 06:48 WBC 9.8 (3.8-10.6) k/uL RBC 4.97 (3.80-5.40) m/uL Hgb 13.5 (11.4-16.0) gm/dL Hct 41.2 (34.0-46.0) % MCV 82.8 (80.0-100.0) fL MCH 27.2 (25.0-35.0) pg MCHC 32.8 (31.0-37.0) g/dL RDW 14.2 (11.5-15.5) % Plt Count 262 (150-450) k/uL Neutrophils % 53 % Lymphocytes % 35 % Monocytes % 5 % Eosinophils % 5 % Basophils % 1 % Neutrophils # 5.2 (1.3-7.7) k/uL Lymphocytes # 3.4 (1.0-4.8) k/uL Monocytes # 0.5 (0-1.0) k/uL Eosinophils # 0.5 (0-0.7) k/uL Basophils # 0.1 (0-0.2) k/uL Sodium (137-145) mmol/L Potassium (3.5-5.1) mmol/L Chloride (98-107) mmol/L Carbon Dioxide (22-30) mmol/L Anion Gap mmol/L BUN (7-17) mg/dL Creatinine (0.52-1.04) mg/dL Est GFR (CKD-EPI)AfAm (>60 ml/min/1.73 sqM) Est GFR (CKD-EPI)NonAf (>60 ml/min/1.73 sqM) Glucose (74-99) mg/dL Calcium (8.4-10.2) mg/dL Total Bilirubin (0.2-1.3) mg/dL AST (14-36) U/L ALT (9-52) U/L Alkaline Phosphatase (38-126) U/L C-Reactive Protein (<10.0) mg/L Total Protein (6.3-8.2) g/dL Albumin (3.5-5.0) g/dL Urine Color Urine Appearance (Clear) Urine pH (5.0-8.0) Ur Specific [place] (1.001-1.035) Urine Protein (Negative) Urine Glucose (UA) (Negative) Urine Ketones (Negative) Urine Blood (Negative) Urine Nitrite (Negative) Urine Bilirubin (Negative) Urine Urobilinogen (<2.0) mg/dL Ur Leukocyte Esterase (Negative) Urine RBC (0-5) /hpf Urine WBC (0-5) /hpf Ur Squamous Epith Cells (0-4) /hpf Urine Bacteria (None) /hpf Urine Mucus (None) /hpf Urine HCG, Qual (Not Detectd) Disposition <Corinne Kowalski - Last Filed: 03/25/18 07:46> Is patient prescribed a controlled substance at d/c from ED?: No <Go Le - Last Filed: 03/25/18 08:50> Clinical Impression: Pelvic pain, Hemorrhagic cyst of right ovary Disposition: HOME SELF-CARE Condition: Good Instructions: Pelvic Pain in Women (ED), Ovarian Cyst (ED) Prescriptions: Ibuprofen 800 mg PO Q6HR PRN #20 tablet PRN Reason: Pain Referrals: Panchito Palumbo MD [Primary Care Provider] - 1-2 days
[2018-03-25 06:31] LABS: Appearance,Urine Cloudy (Clear); Bacteria,Urine Rare /hpf; Bilirubin,Urine Negative (Negative); Blood,Urine Negative (Negative); Color,Urine Yellow; Glucose,Urine (UA) Negative (Negative); Ketones,Urine Negative (Negative); Leukocyte Esterase,Urine Negative (Negative); Mucus,Urine Rare /hpf; Nitrite,Urine Negative (Negative); Protein,Urine Negative (Negative); RBC,Urine 1 /hpf (0-5); Specific Gravity,Urine 1.016 (1.001-1.035); Squamous Epithelial Cell,Urine 4 /hpf (0-4); Urobilinogen,Urine <2.0 mg/dL (<2.0); WBC,Urine 1 /hpf (0-5)
[2018-03-25 07:02] LABS: Basophils # (A) 0.1 k/uL (0-0.2); Basophils % (A) 1 %; Eosinophils # (A) 0.5 k/uL (0-0.7); Eosinophils % (A) 5 %; HCT 41.2 % (34.0-46.0); HGB 13.5 gm/dL (11.4-16.0); Lymphocytes # (A) 3.4 k/uL (1.0-4.8); Lymphocytes % (A) 35 %; MCH 27.2 pg (25.0-35.0); MCHC 32.8 g/dL (31.0-37.0); MCV 82.8 fL (80.0-100.0); Monocytes # (A) 0.5 k/uL (0-1.0); Monocytes % (A) 5 %; Neutrophils # (A) 5.2 k/uL (1.3-7.7); Neutrophils % (A) 53 %; Platelet Count 262 k/uL (150-450); RBC 4.97 m/uL (3.80-5.40); RDW 14.2 % (11.5-15.5); WBC 9.8 k/uL (3.8-10.6)
[2018-03-25 07:14] LABS: ALT 35 U/L (9-52); AST 22 U/L (14-36); Albumin 3.9 g/dL (3.5-5.0); Alkaline Phosphatase 60 U/L (38-126); Anion Gap 9 mmol/L; Blood Urea Nitrogen 12 mg/dL (7-17); C Reactive Protein <5.0 mg/L (<10.0); Calcium 9.4 mg/dL (8.4-10.2); Carbon Dioxide 22 mmol/L (22-30); Chloride 106 mmol/L (98-107); Glucose 103 mg/dL (74-99); Potassium 4.6 mmol/L (3.5-5.1); Sodium 137 mmol/L (137-145); Total Bilirubin 0.3 mg/dL (0.2-1.3); Total Protein 6.9 g/dL (6.3-8.2)
--- NOTE | 2018-03-25 08:12 | US ---
EXAMINATION TYPE: US transvaginal DATE OF EXAM: 03/25/2018 COMPARISON: Previous study dated 10/18/2016. CLINICAL HISTORY: Pain. Generalized pain TECHNIQUE: Transvaginal (TV). Date of LMP: 02/17/2018, EXAM MEASUREMENTS: Uterus: 6.6 x 4.5 x 3.9 cm Endometrial Stripe: 1.1 cm Right Ovary: 3.6 x 3.0 x 2.5 cm Left Ovary: 3.2 x 1.9 x 2.4 cm 1. Uterus: Retroverted Heterogenous 2. Endometrium: wnl 3. Right Ovary: Hypoechoic lesion seen - 2.5 x 2.2 x 1.9 cm 4. Left Ovary: follicles seen Spectral, color and waveform doppler imaging shows good arterial and venous flow within the ovaries ; there is no evidence for ovarian torsion. 5. Bilateral Adnexa: free fluid seen in left adx 6. Posterior cul-de-sac: free fluid seen IMPRESSION: 1. AREA OF DECREASED ECHOGENICITY IN THE RIGHT OVARY IS NOT CLEARLY FROM THE OVARY. SHORT-T ERM FOLLOW-UP WOULD BE SUGGESTED. 2. SMALL AMOUNT OF FREE FLUID WITHIN THE CUL-DE-SAC.
--- NOTE | 2018-03-25 08:12 | US ---
EXAMINATION TYPE: US abdomen APPY DATE OF EXAM: 03/25/2018 COMPARISON: None. CLINICAL HISTORY: Pain. Generalized lower abd pain APPENDIX Is the appendix seen in its entirety from the proximal cecum to distal end: No tubular structure vis ualized in RLQ Is there inflammatory changes or free fluid present: No free fluid seen IMPRESSION: NONDIAGNOSTIC RIGHT LOWER QUADRANT ULTRASOUND.
[2018-03-25] MEDS ORDERED: KETOROLAC 30 MG/ML 1 ML VIAL IVP STA (08:47)
[2018-03-25 09:14] VITALS: BP 118/74; PULSE 70; RESP 18; TEMP 98.4
== END 2018-03-25 09:08 | disposition home or self-care (01) ==
LOC: EC 05:51
DX: N83.201 Unspecified ovarian cyst, right side (principal); N92.6 Irregular menstruation, unspecified; Z32.02 Encounter for pregnancy test, result negative; F17.200 Nicotine dependence, unspecified, uncomplicated; Z88.0 Allergy status to penicillin; Z79.82 Long term (current) use of aspirin
CPT/HCPCS: 36415; 80053; 85025; 86140; 81001; 81025; 93975; 76705; 76830; 99284; 96374; J1885

== ENCOUNTER 2018-07-18 02:30 | Emergency (ER) | payer BC, OTHER ==
[2018-07-18 02:47] VITALS: BP 122/65; PULSE 103; RESP 18; TEMP 100.2
[2018-07-18] MEDS ORDERED: IBUPROFEN 600 MG TAB PO STA (03:02)
[2018-07-18] MEDS ORDERED: ONDANSETRON ODT 4 MG TAB PO STA (03:02)
[2018-07-18] MEDS ORDERED: guaiFENesin-DM 600/30MG 1 EACH TAB.ER.12H PO STA (03:02)
--- NOTE | 2018-07-18 03:07 | ED ---
URI HPI - General Chief Complaint: Upper Respiratory Infection Stated Complaint: cough, chest congestion Time Seen by Provider: 07/18/18 02:56 Source: patient Mode of arrival: ambulatory Limitations: no limitations - History of Present Illness Initial Comments: 23-year-old female patient presents to the emergency department today for complaints of cough, sore throat, nasal drainage. Patient states symptoms started yesterday. States she has been having elevated temperatures. States that she has had some posttussive vomiting today. She is coughing up clear sputum. She does smoke cigarettes. She denies any hemoptysis. She states she did not receive a flu vaccine this season. States she is otherwise healthy. Patient denies any recent rash, abdominal pain, diarrhea, constipation, back pain, numbness, tingling, dizziness, weakness, hematuria, dysuria, urinary urgency, urinary frequency, headache, visual changes, or any other complaints. States there is a chance she could be . - Related Data Home Medications Medication Instructions Recorded Confirmed Aspirin EC [Ecotrin Low Dose] 81 mg PO DAILY 10/19/17 10/19/17 Previous Rx's Medication Instructions Recorded Ibuprofen [Motrin] 600 mg PO Q8HR PRN #30 tab 01/28/18 Ibuprofen 800 mg PO Q6HR PRN #20 tablet 03/25/18 Oseltamivir [Tamiflu] 75 mg PO Q12HR #10 cap 07/18/18 guaiFENesin-DM 600/30MG [Mucinex 1 each PO Q12HR #10 tab.er.12h 07/18/18 Dm] Allergies Allergy/AdvReac Type Severity Reaction Status Date / Time Penicillins Allergy Rash/Hives Verified 07/18/18 02:47 Review of Systems ROS Statement: Those systems with pertinent positive or pertinent negative responses have been documented in the HPI. ROS Other: All systems not noted in ROS Statement are negative. Past Medical History Past Medical History: No Reported History History of Any Multi-Drug Resistant Organisms: None Reported Past Surgical History: Hernia Repair Additional Past Surgical History / Comment(s): lathoscopy Past Psychological History: No Psychological Hx Reported Smoking Status: Current every day smoker Past Alcohol Use History: Rare Past Drug Use History: Marijuana General Exam Limitations: no limitations General appearance: alert, in no apparent distress, other (This is a well- developed, well-nourished adult female patient in no acute distress. Vital signs upon presentation are temperature 100.2F, pulse 103, respirations 18, blood pressure 122/65, pulse ox 96% on room air.) Eye exam: Present: normal appearance, PERRL, EOMI. Absent: scleral icterus, conjunctival injection, periorbital swelling ENT exam: Present: mucous membranes moist, TM's normal bilaterally (Pearly, no effusion, no injection). Absent: normal exam, normal oropharynx (Pharyngeal erythema, tonsillar hypertrophy) Neck exam: Present: normal inspection. Absent: tenderness, meningismus, lymphadenopathy Respiratory exam: Present: normal lung sounds bilaterally. Absent: respiratory distress, wheezes, rales, rhonchi, stridor Cardiovascular Exam: Present: normal rhythm, tachycardia, normal heart sounds. Absent: systolic murmur, diastolic murmur, rubs, gallop, clicks GI/Abdominal exam: Present: soft, normal bowel sounds. Absent: distended, tenderness, guarding, rebound, rigid Neurological exam: Present: alert, oriented X3, CN II-XII intact Psychiatric exam: Present: normal affect, normal mood Skin exam: Present: warm, dry, intact, normal color. Absent: rash Course Vital Signs 07/18/18 02:44 Temperature 100.2 F H Pulse Rate 103 H Respiratory 18 Rate Blood Pressure 122/65 O2 Sat by Pulse 96 Oximetry Medical Decision Making - Lab Data Lab Results 07/18/18 07/18/18 Range/Units 03:06 03:06 Urine HCG, Qual Not Detected (Not Detectd) Influenza Type A RNA Detected H (Not Detectd) Influenza Type B (PCR) Not Detected (Not Detectd) Disposition Clinical Impression: Influenza A Disposition: HOME SELF-CARE Condition: Good Instructions (If sedation given, give patient instructions): Influenza Virus Vaccine (By injection), Influenza (ED) Additional Instructions: Increase fluids. Alternate Tylenol and Motrin for fever control. Complete Tamiflu prescription and full. Follow-up with your primary care physician for recheck in 1-2 days. Return to the emergency department immediately for any new , worsening, or concerning symptoms per Prescriptions: guaiFENesin-DM 600/30MG [Mucinex Dm] 1 each PO Q12HR #10 tab.er.12h Oseltamivir [Tamiflu] 75 mg PO Q12HR #10 cap Is patient prescribed a controlled substance at d/c from ED?: No Referrals: Panchito Palumbo MD [Primary Care Provider] - 1-2 days Time of Disposition: 04:23
--- NOTE | 2018-07-18 04:20 | XR ---
EXAM: XR Chest, 2 Views CLINICAL HISTORY: ITS.REASON XR Reason: Pain TECHNIQUE: Frontal and lateral views of the chest. COMPARISON: 01/28/18 chest radiography. FINDINGS: Lungs: Unremarkable. No consolidation. Pleural space: Unremarkable. No pneumothorax. Heart: Unremarkable. No cardiomegaly. Mediastinum: Unremarkable. Bones/joints: Unremarkable. IMPRESSION: Normal chest x-rays.
[2018-07-18] MEDS ORDERED: OSELTAMIVIR 75 MG CAP PO STA (04:22)
== END 2018-07-18 04:34 | disposition home or self-care (01) ==
LOC: EC 02:30
DX: J10.1 Influenza due to other identified influenza virus with other respiratory manifestations (principal); R11.10 Vomiting, unspecified; F17.210 Nicotine dependence, cigarettes, uncomplicated; Z79.82 Long term (current) use of aspirin; Z88.0 Allergy status to penicillin
CPT/HCPCS: 71046; 81025; 87502; 99284

== ENCOUNTER 2018-12-14 17:21 | Inpatient (IN) | payer BC, MEDICAID ==
--- NOTE | 2018-12-14 18:23 | ED ---
Psych HPI - General Chief Complaint: Psychiatric Symptoms Stated Complaint: Mental health Time Seen by Provider: 12/14/18 18:07 Source: patient Mode of arrival: ambulatory - History of Present Illness Initial Comments: 23-year-old female patient presents to the emergency department today for evaluation of suicidal ideation. Patient states that she has been feeling depressed over the last few months. Patient states today she was having thoughts of killing herself. Patient denies any specific plan to do so. Patient states that she did attempt suicide once as a child. Patient denies any current psychiatric treatment, counseling, or use of antidepressant medications. Patient does admit to smoking marijuana occasionally. States she did have 1 glass of alcohol today but does not routinely drink. She denies any visual or auditory hallucinations. Denies any self-harm behavior. She denies any current physical symptoms or concerns. Patient denies any recent rash, fever, chills, shortness breath, chest pain, abdominal pain, nausea, vomiting, diarrhea, constipation, back pain, numbness, tingling, dizziness, weakness, hematuria, dysuria, urinary urgency, urinary frequency, headache, visual changes, or any other complaints. - Related Data Home Medications Medication Instructions Recorded Confirmed No Known Home Medications 12/14/18 12/14/18 Allergies Allergy/AdvReac Type Severity Reaction Status Date / Time Penicillins Allergy Rash/Hives Verified 12/14/18 18:10 Review of Systems ROS Statement: Those systems with pertinent positive or pertinent negative responses have been documented in the HPI. ROS Other: All systems not noted in ROS Statement are negative. Past Medical History Past Medical History: No Reported History History of Any Multi-Drug Resistant Organisms: None Reported Past Surgical History: Hernia Repair Additional Past Surgical History / Comment(s): lathoscopy Past Psychological History: No Psychological Hx Reported Smoking Status: Current every day smoker Past Alcohol Use History: Rare Past Drug Use History: Marijuana General Exam Limitations: no limitations General appearance: alert, in no apparent distress, other (Physical well- developed, well-nourished adult female patient in no acute distress. Vital signs upon presentation are temperature 98.7F, pulse 88, respirations 18, blood pressure 134/87, pulse ox 99% on room air) Eye exam: Present: normal appearance, PERRL, EOMI. Absent: scleral icterus, conjunctival injection, periorbital swelling ENT exam: Present: normal exam, normal oropharynx, mucous membranes moist Respiratory exam: Present: normal lung sounds bilaterally. Absent: respiratory distress, wheezes, rales, rhonchi, stridor Cardiovascular Exam: Present: regular rate, normal rhythm, normal heart sounds. Absent: systolic murmur, diastolic murmur, rubs, gallop, clicks GI/Abdominal exam: Present: soft, normal bowel sounds. Absent: distended, tenderness, guarding, rebound, rigid Neurological exam: Present: alert, oriented X3, CN II-XII intact Psychiatric exam: Present: depressed, suicidal ideation. Absent: homicidal ideation Skin exam: Present: warm, dry, intact, normal color. Absent: rash Course Vital Signs 12/14/18 17:25 Temperature 98.7 F Pulse Rate 88 Respiratory 18 Rate Blood Pressure 134/87 O2 Sat by Pulse 99 Oximetry Medical Decision Making - Medical Decision Making 23-year-old female patient presents to the emergency department today for evaluation of depression and suicidal ideation. Patient had no physical complaints. Physical exam is unremarkable. Patient was evaluated by emergency psychiatric services. It is felt she would benefit from inpatient admission she'll be transferred to the mental health unit. - Lab Data Lab Results 12/14/18 12/14/18 Range/Units 18:25 18:25 Urine HCG, Qual Not Detected (Not Detectd) Urine Opiates Screen Not Detected (NotDetected) Ur Oxycodone Screen Not Detected (NotDetected) Urine Methadone Screen Not Detected (NotDetected) Ur Propoxyphene Screen Not Detected (NotDetected) Ur Barbiturates Screen Not Detected (NotDetected) U Tricyclic Antidepress Not Detected (NotDetected) Ur Phencyclidine Scrn Not Detected (NotDetected) Ur Amphetamines Screen Not Detected (NotDetected) U Methamphetamines Scrn Not Detected (NotDetected) U Benzodiazepines Scrn Not Detected (NotDetected) Urine Cocaine Screen Not Detected (NotDetected) U Marijuana (THC) Screen Detected H (NotDetected) Disposition Clinical Impression: Suicidal ideation, Depression Disposition: TRANSFER TO PSYCH HOSP/UNIT Condition: Serious Referrals: None,Stated [Primary Care Provider] - 1-2 days - Out of Hospital Transfer - Req. Specs Out of Hospital Transfer - Requested Specifics: Psychiatric Non-ICU ([facility])
[2018-12-14 18:52] LABS: Amphetamine Screen,Urine Not Detected (NotDetected); Barbiturate Screen,Urine Not Detected (NotDetected); Benzodiazepines Screen,Urine Not Detected (NotDetected); Cocaine Screen,Urine Not Detected (NotDetected); Methadone Screen, Urine Not Detected (NotDetected); Opiate Screen,Urine Not Detected (NotDetected); Oxycodone Screen, Urine Not Detected (NotDetected); Phencyclidine Screen,Urine Not Detected (NotDetected); Tricyclic Antidepressant,Urine Not Detected (NotDetected); Urn Cannabinoid Scrn Detected (NotDetected)
[2018-12-14] MEDS ORDERED: LORazepam 2 MG/ML INJ IM STA (19:53)
[2018-12-14] MEDS ORDERED: ONDANSETRON 4 MG/2 ML VIAL IM STA (19:53)
[2018-12-14] MEDS ORDERED: ONDANSETRON ODT 4 MG TAB PO STA (19:53)
[2018-12-14] MEDS ORDERED: MAGNESIUM HYDROXIDE 2,400 MG/10 ML CUP PO PRN (20:47)
[2018-12-14] MEDS ORDERED: MAG HYDROX/AL HYDROX/SIMETH 30 ML CUP PO PRN (20:47)
[2018-12-14] MEDS ORDERED: LORazepam 1 MG TAB PO PRN (20:47)
[2018-12-14] MEDS ORDERED: ZIPRASIDONE 20 MG VIAL IM PRN (20:47)
[2018-12-14] MEDS: NICOTINE 7MG/24HR PATCH TRANSDERM SCH (21:34)
[2018-12-14 22:09] VITALS: BMI 29.9
--- NOTE | 2018-12-14 23:47 | P.MDCNMH ---
History of Present Illness H&P Date: 12/14/18 Chief Complaint: suicidal ideation 23 year old female with history of depresison not on medication , denies any medical history patient presented with suicidal ideation due to life stressors. she has a daughter with autism , and causing alot of stressors. she did not have a plan for suicide, however she did overdose in the past. otherwise she denies any medical concerns or complaints at this time. denies any fever chills, SOB, chest pain , abd pain , nausea or vomiting Review of Systems Pertinent positives as noted in HPI. All other systems were reviewed and are negative Past Medical History Past Medical History: No Reported History History of Any Multi-Drug Resistant Organisms: None Reported Past Surgical History: Hernia Repair Additional Past Surgical History / Comment(s): lathoscopy Past Anesthesia/Blood Transfusion Reactions: No Reported Reaction Past Psychological History: No Psychological Hx Reported Smoking Status: Current every day smoker Past Alcohol Use History: Rare Past Drug Use History: Marijuana Medications and Allergies Home Medications Medication Instructions Recorded Confirmed Type No Known Home Medications 12/14/18 12/14/18 History Allergies Allergy/AdvReac Type Severity Reaction Status Date / Time Penicillins Allergy Rash/Hives Verified 12/14/18 22:14 Physical Exam Vitals: Vital Signs Temp Pulse Pulse Resp BP BP Pulse Ox 12/14/18 21:47 98.8 F 68 18 131/78 12/14/18 20:35 98.5 F 64 16 120/63 99 12/14/18 17:25 98.7 F 88 18 134/87 99 Intake and Output 12/14/18 12/14/18 12/14/18 06:59 14:59 22:59 Other: Weight 79.379 kg Constitutional: No acute distress, conversant, pleasant Eyes: Anicteric sclerae, moist conjunctiva, no lid-lag Pupils equal round reactive to light ENMT: NC/AT Oropharynx clear, no erythema, exudates Neck: Supple, FROM, no masses, or JVD No carotid bruits No thyromegaly Lungs: Clear to auscultation Clear to percussion Normal respiratory effort, no accessory muscle use Cardiovascular: Heart regular in rate and rhythm, No murmurs, gallops, or rubs No peripheral edema Abdominal: Soft Nontender, no guarding, rebound or rigidity Abdomen moving with respiration Normoactive bowel sounds No hepatomegaly, No splenomegaly No palpable mass No abdominal wall hernia noted Skin: Normal temperature, tone, texture, turgor No induration No subcutaneous nodules No rash, lesions No ulcers Extremities: No digital cyanosis No clubbing Pedal pulses intact and symmetrical Radial pulses intact and symmetrical No calf tenderness Psychiatric: Alert and oriented to person, place and time Appropriate affect poor judgment Neuro Muscles Strength 5/5 in all 4 extremities Sensation to light touch grossly present throughout Cranial nerves II-XII grossly intact No focal sensory deficits Lymphatics: no palpable cervical or supraclavicular , or inguinal lymph nodes Cranial Nerve Examination - Cranial Nerves Cranial Nerve II- Optic: Intact Cranial Nerve III- Oculomotor: Intact Cranial Nerve IV- Trochlear: Intact Cranial Nerve V- Trigeminal: Intact Cranial Nerve - Abducens: Intact Cranial Nerve VII- Facial: Intact Cranial Nerve VIII- Auditory: Intact Cranial Nerve IX- Glossopharyngeal: Intact Cranial Nerve X- Vagus: Intact Cranial Nerve XI- Accessory: Intact Cranial Nerve XII- Hypoglossal: Intact Results Labs: Abnormal Lab Results - Last 24 Hours (Table) 12/14/18 Range/Units 18:25 U Marijuana (THC) Screen Detected H (NotDetected) Assessment and Plan Assessment: 23 year old female with no PMHx, admitted due to suicidal ideation denies any medical complaints at this point Plan: suicidal ideation with history of depression Management per psych Suicide precautions Tobacco smoking Counseled to quit smoking Dictating replacement therapy Low risk for DVT patient is ambulatory Thank you for allowing us to participate in the care of this patient. We will follow peripherally. Do not hesitate to contact us with questions. Someone can be reached from the [facility] hospitalist group at all hours of the day at [phone].
[2018-12-15] MEDS: MELATONIN 3 MG TABLET PO SCH ×2 (01:57→20:58)
[2018-12-15] MEDS: NICOTINE 7MG/24HR PATCH TRANSDERM SCH (08:36)
[2018-12-15 08:53] LABS: Basophils % (A) 1 %; Eosinophils # (A) 0.2 k/uL (0-0.7); Eosinophils % (A) 3 %; HCT 46.2 % (34.0-46.0); HGB 14.6 gm/dL (11.4-16.0); Lymphocytes # (A) 2.5 k/uL (1.0-4.8); Lymphocytes % (A) 35 %; MCH 26.7 pg (25.0-35.0); MCHC 31.6 g/dL (31.0-37.0); MCV 84.6 fL (80.0-100.0); Mean Platelet Volume 7.3; Monocytes # (A) 0.4 k/uL (0-1.0); Monocytes % (A) 6 %; Neutrophils # (A) 3.8 k/uL (1.3-7.7); Neutrophils % (A) 53 %; Platelet Count 268 k/uL (150-450); RBC 5.46 m/uL (3.80-5.40); RDW 13.2 % (11.5-15.5); WBC 7.1 k/uL (3.8-10.6)
[2018-12-15 09:10] LABS: ALT 35 U/L (9-52); AST 31 U/L (14-36); African American GFR (CKD) >90 (>60 ml/min/1.73 sqM); Albumin 4.9 g/dL (3.5-5.0); Alkaline Phosphatase 80 U/L (38-126); Anion Gap 11 mmol/L; Blood Urea Nitrogen 12 mg/dL (7-17); Calcium 10.5 mg/dL (8.4-10.2); Carbon Dioxide 24 mmol/L (22-30); Chloride 107 mmol/L (98-107); Cholesterol 219 mg/dL (<200); Glucose 108 mg/dL (74-99); HDL Cholesterol 41 mg/dL (40-60); LDL Cholesterol,Calculated 158 mg/dL (0-99); Potassium 4.8 mmol/L (3.5-5.1); Sodium 142 mmol/L (137-145); Total Bilirubin 0.6 mg/dL (0.2-1.3); Triglycerides 101 mg/dL (<150)
[2018-12-15] MEDS: FLUoxetine HCL 10 MG CAP PO SCH (09:51)
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
[2018-12-15] MEDS: hydrOXYzine PAMOATE 25 MG CAP PO PRN (15:09)
[2018-12-15 19:13] LABS: Hemoglobin A1C 5.8 % (4.0-6.0)
[2018-12-16] MEDS: hydrOXYzine PAMOATE 25 MG CAP PO PRN ×2 (07:22→14:56)
[2018-12-16] MEDS: FLUoxetine HCL 10 MG CAP PO SCH (07:23)
[2018-12-16] MEDS: NICOTINE 7MG/24HR PATCH TRANSDERM SCH (07:23)
--- NOTE | 2018-12-16 10:55 | P.PN ---
Progress Note - Text Interval history: The patient's found the hallway she follows me to an interview room. The patient was admitted for worsening symptoms of depression. She states that she feels a lot better already. She has been responding to the therapeutic milieu. She has been appropriately socializing with peers. We reviewed her psychotropic medications. She initially expresses concern that the dosage of the Prozac will be increased to 20. She had concerns that it would be an addictive substance. We discussed this in detail and reviewed that the 20 mg dose really would be a minimum effective dose. With information and reassurance she is agreeable to having the dose titrated in the next few days. She states that she slept well last night appetite is improved. She expects a visit from her . She characterizes her marriage as being good. Mental status exam: The patient is alert she is dressed in hospital gowns. Hygiene grooming adequate. Speech is fluent spontaneous nonpressured. She demonstrates a euthymic affect. She reports having no suicidal or homicidal ideation intent or plan. She is reporting no auditory or visual hallucinations or any specific delusions. There is no observed evidence of psychosis. She does not appear hypomanic or manic. Thought process is linear she demonstrates no tangential thinking loose associations or flight of ideas. Insight and judgment grossly intact. She demonstrates no verbal or physical aggressiveness or any involuntary repetitive movements. She is oriented to person place and date. Plan: The patient's will continue on her current psychotropic medication. She has been attending group she is encouraged to continue participating in the therapeutic milieu. We will monitor her for safety. Vital signs reviewed.
[2018-12-16] MEDS: MELATONIN 3 MG TABLET PO SCH (20:05)
[2018-12-16] MEDS ORDERED: ONDANSETRON ODT 4 MG TAB PO STA (22:59)
[2018-12-16 23:22] VITALS: RESP 16
[2018-12-17] MEDS: ACETAMINOPHEN TAB 325 MG TAB PO PRN (00:24)
[2018-12-17] MEDS: NICOTINE 7MG/24HR PATCH TRANSDERM SCH (08:29)
[2018-12-17] MEDS: hydrOXYzine PAMOATE 25 MG CAP PO PRN ×2 (10:26→18:55)
[2018-12-17] MEDS: FLUoxetine HCL 10 MG CAP PO SCH (12:07)
--- NOTE | 2018-12-17 12:54 | P.PN ---
Progress Note - Text Interval history: The patient was found in group she follows me to an interview room. She indicates her mood seems to be improving. She did have a good visit with her and expects he will visit again this evening. She has some concern regarding the Prozac. She had a brief episode where she felt dizzy and felt nauseous when she lay down. We reviewed possible side effects of the Prozac and reassured her that most likely they would be transient. She admits that it could've been mediated by anxiety as well. She has been able to eat staff reported she slept 4 hours last evening. She has been participating in groups. Mental status exam: The patient is alert she's restroom clothing hygiene grooming adequate. Speech is fluent nonspontaneous nonpressured. Eye contact is appropriate. She reports her mood is "improving". Affect is pleasant and congruent with reported mood. She reports no acute suicidal or homicidal ideation intent or plan. She is reporting no auditory or visual hallucinations or any specific delusions. There is no observable evidence of psychosis. She does not appear hypomanic or manic. Thought process is linear. She demonstrates no verbal or physical aggressiveness. Insight and judgment improving. Plan: The patient will continue on her current psychotropic medication she is encouraged to continue with the Prozac as she refused her dose this morning. She states she is agreeable to continue the trial of the medication. She is encouraged to continue fully participating in the milieu. Vital signs reviewed they're within normal limits. We will continue to monitor her for safety.
[2018-12-17] MEDS: MELATONIN 3 MG TABLET PO SCH (21:17)
[2018-12-18] MEDS: NICOTINE 7MG/24HR PATCH TRANSDERM SCH (08:32)
[2018-12-18] MEDS: FLUoxetine HCL 10 MG CAP PO SCH (08:32)
[2018-12-18] MEDS: ACETAMINOPHEN TAB 325 MG TAB PO PRN ×2 (10:34→21:30)
[2018-12-18] MEDS: hydrOXYzine PAMOATE 25 MG CAP PO PRN ×2 (12:02→19:56)
--- NOTE | 2018-12-18 12:10 | P.PN ---
Progress Note - Text Progress Note Date: 12/18/18 Interval History: Patient is a 23-year-old female who was seen today and she reports that she feeling less anxious and states that she never really discussed her anxiety with anyone. She states that she avoided going places because she was anxious but never talked about this with anyone. She states she is feeling less irritable and not as depressed. She also discussed how she was signing up for as many shifts that she could get at work as a way to distract herself from the problems at home. She states that she really was only home to do anything with her or her daughter on her days off. She states that she would just come home go to sleep and then get up and go back to work. Patient states she did this to distract herself from the problems that she was having. She reports that her sleep has improved here and she signed any side effects from the medication. Mental Status: Appearance/Attitude: Patient is neatly and casually dressed, makes eye contact and was cooperative. Behavior: Patient does not display any psychomotor agitation or retardation. Speech/Language: Patient's speech is spontaneous of normal volume and rhythm and she is coherent Thought Process: Patient is goal-directed there is no evidence of loose association or flight of ideas Thought Content: Patient denies any auditory or visual hallucinations and no delusions or paranoid ideation are elicited. Patient states that she's just begun talking about the fact that she avoided going places because of anxiety something that she has not discussed with anyone her family or friends in the past. She also discussed how she has been working more and more hours in signing up for extra shifts to avoid dealing with issues at home. She states that working was a way to distract herself from the problems that she had at home. Patient states that she is feeling less irritable, no longer feeling as d epressed and much less anxious. She states that she is sleeping better and beginning to talk in groups and activities. Suicidal/Homicidal Ideation: Patient denied any current suicidal or homicidal id eation Sensorium/Cognition: Patient is alert and oriented to person, place, and time Mood/Affect: Patient's mood was depressed and anxious and her affect is appropriate Insight/Judgment: Patient's insight and judgment are fair Assessment: Patient discussed how she has been avoiding going places due to anxiety something that she's never discussed with anyone. She states that she is also been working extra hours and shifts to avoid dealing with issues at home. She states that working was a way to distract herself from the concerns and problems she was having at home. Patient states that she is sleeping better and has been discussing her anxiety in groups. She states that she is no longer feeling as depressed or suicidal. Patient reports no side effects from the medication. Plan: Patient will continue on Prozac 10 mg to target her depression and anxiety and consider an increase if no continued improvement, patient also continues on Vistaril 25 mg as needed for her anxiety and melatonin 3 mg at bedtime to target her sleep. Patient and I discussed the need for her to begin working more regular schedule, spend more time with her daughter and . Patient continues to require hospitalization and we discussed discharge sometime mid week.
[2018-12-18] MEDS: MELATONIN 3 MG TABLET PO SCH (19:56)
[2018-12-19] MEDS ORDERED: FLUTICASONE 50MCG/SPRAY NASAL 16GM EA NOSTRIL PRN (00:02)
[2018-12-19 07:08] VITALS: BP 128/60; PULSE 80; TEMP 98.1
[2018-12-19] MEDS: FLUoxetine HCL 10 MG CAP PO SCH (08:05)
[2018-12-19] MEDS: hydrOXYzine PAMOATE 25 MG CAP PO PRN (08:47)
[2018-12-19] MEDS: NICOTINE 7MG/24HR PATCH TRANSDERM SCH (09:35)
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
== END 2018-12-19 12:02 | disposition home or self-care (01) | DRG 885 ==
LOC: EC 17:21 → 3MHU 20:28
PROVIDERS: ADMIT Psychiatry & Neurology Psychiatry; ATTEND Psychiatry & Neurology Psychiatry
DX: F32.1 Major depressive disorder, single episode, moderate (principal); R45.851 Suicidal ideations; F17.200 Nicotine dependence, unspecified, uncomplicated; F41.0 Panic disorder [episodic paroxysmal anxiety]; F43.10 Post-traumatic stress disorder, unspecified; R11.0 Nausea; R42 Dizziness and giddiness; Z62.810 Personal history of physical and sexual abuse in childhood; Z91.5 Personal history of self-harm; Z88.0 Allergy status to penicillin
CPT/HCPCS: 80053; 80061; 80306; 81025; 82075; 83036; 84443; 84484; 85025; 93005; 96372; 99285

== ENCOUNTER 2019-08-05 17:13 | Emergency (ER) | payer BC, OTHER ==
[2019-08-05] MEDS ORDERED: SODIUM CHLORIDE 0.9% 1,000 ML IV STA (17:38)
[2019-08-05] MEDS ORDERED: METOCLOPRAMIDE 5 MG/ML 2 ML VIAL IVP STA (17:38)
[2019-08-05] MEDS ORDERED: diphenhydrAMINE 50 MG/ML 1 ML VIAL IVP STA (17:38)
--- NOTE | 2019-08-05 18:13 | ED ---
General Adult HPI - General Chief complaint: Headache Stated complaint: headache/chest pain/cough Time Seen by Provider: 08/05/19 17:29 Source: patient, RN notes reviewed Mode of arrival: ambulatory Limitations: no limitations - History of Present Illness Initial comments: 24-year-old female presents to the emergency department for a chief complaint of headache. Patient states she has had headaches consistent like this for several months. States that she has had a CT performed and is now waiting to have an MRI. States she is waiting for her insurance to approve this. States she has seen multiple specialists including an manufacturing clerk and neurologist. She states her neurologist thinks it is due to a pinched nerve in her neck. She has further follow-up with her neurologist after she gets the MRI. States that today she is still having consistent pain so wanted to be evaluated in the emergency department for pain relief. Patient denies fevers or chills. Denies neck stiffness. Denies visual changes. Does admit to nausea, denies photophobia. States the pain is in the back of her head and radiates around to her forehead at times.Despite triage note patient did not pass out. States she started to feel tired and laid down. She was alert throughout the episode. Patient has no other complaints at this time including shortness of breath, chest pain, abdominal pain, nausea or vomiting, headache, or visual changes. - Related Data Previous Rx's Medication Instructions Recorded FLUoxetine HCL [PROzac] 10 mg PO DAILY #14 cap 12/19/18 Melatonin 3 mg PO HS tablet 12/19/18 hydrOXYzine PAMOATE [Vistaril] 25 mg PO Q8HR PRN #28 [facility] 12/19/18 Allergies Allergy/AdvReac Type Severity Reaction Status Date / Time Penicillins Allergy Rash/Hives Verified 08/05/19 17:23 Review of Systems ROS Statement: Those systems with pertinent positive or pertinent negative responses have been documented in the HPI. ROS Other: All systems not noted in ROS Statement are negative. Past Medical History Past Medical History: No Reported History History of Any Multi-Drug Resistant Organisms: None Reported Past Surgical History: Hernia Repair Additional Past Surgical History / Comment(s): lathoscopy Past Anesthesia/Blood Transfusion Reactions: No Reported Reaction Past Psychological History: No Psychological Hx Reported Smoking Status: Current every day smoker Past Alcohol Use History: Rare Past Drug Use History: Marijuana General Exam Limitations: no limitations General appearance: alert, in no apparent distress Head exam: Present: atraumatic, normocephalic, normal inspection Eye exam: Present: normal appearance, PERRL, EOMI. Absent: scleral icterus, conjunctival injection, periorbital swelling ENT exam: Present: normal exam, mucous membranes moist Neck exam: Present: normal inspection, full ROM. Absent: tenderness, meningismus, lymphadenopathy Respiratory exam: Present: normal lung sounds bilaterally. Absent: respiratory distress, wheezes, rales, rhonchi, stridor Cardiovascular Exam: Present: regular rate, normal rhythm, normal heart sounds. Absent: systolic murmur, diastolic murmur, rubs, gallop, clicks Neurological exam: Present: alert, oriented X3, normal gait, other (GCS 15) Psychiatric exam: Present: normal affect, normal mood Course Vital Signs 08/05/19 17:19 Temperature 98.5 F Pulse Rate 77 Respiratory 16 Rate Blood Pressure 114/81 O2 Sat by Pulse 100 Oximetry Medical Decision Making - Medical Decision Making I did obtain CT reports from [facility] 07/17/2019 that showed no evidence of acute hemorrhage or mass effect. There was mild chronic sinusitis. Patient saw ENT and neurology since that time. Neurology is thinking this is likely a pinched nerve in her neck. However patient is awaiting MRI. I did give patient a migraine cocktail and she had significant improvement in pain. In fact underwent evaluation she was sleeping. She was easily arousable and stated her pain was much better. Patient will be discharged home to follow up with primary care to discuss MRI as well as neurology. She'll return if she has any worsening symptoms.I discussed this case with attending Dr. Frank who agrees with this assessment and treatment plan. - Lab Data Lab Results 08/05/19 Range/Units 17:48 Urine HCG, Qual Not Detected (Not Detectd) Disposition Clinical Impression: Headache Disposition: HOME SELF-CARE Condition: Good Instructions (If sedation given, give patient instructions): Acute Headache (ED) Additional Instructions: Please take Motrin and Tylenol for pain. Please follow-up with neurology and primary care in 1-2 days. If you have any worsening symptoms return to the emergency department. Is patient prescribed a controlled substance at d/c from ED?: No Referrals: Wilber Chambers MD [Primary Care Provider] - 1-2 days Time of Disposition: 19:14
[2019-08-05] MEDS ORDERED: KETOROLAC 30 MG/ML 1 ML VIAL IVP STA (18:15)
[2019-08-05 19:28] VITALS: BP 108/65; PULSE 67; RESP 18; TEMP 97.9
== END 2019-08-05 19:28 | disposition home or self-care (01) ==
LOC: EC 17:13
DX: R51 Headache (principal); R07.9 Chest pain, unspecified; R05 Cough; J32.9 Chronic sinusitis, unspecified; F17.200 Nicotine dependence, unspecified, uncomplicated; Z88.0 Allergy status to penicillin
CPT/HCPCS: 81025; 99284; 96374; 96375 ×2; 96361; J1200; J2765; J1885

== ENCOUNTER 2020-09-16 20:33 | Emergency (ER) | payer BC, OTHER ==
[2020-09-16 20:57] VITALS: TEMP 98.2
--- NOTE | 2020-09-16 21:57 | ED ---
Fall HPI - General Chief Complaint: Fall Stated Complaint: Fall/ preg Time Seen by Provider: 09/16/20 21:23 Source: patient Mode of arrival: ambulatory - History of Present Illness Initial Comments: Patient is a 25-year-old female, currently 17 weeks , presenting to the emergency department after she had a slip and fall down an hour prior to arrival. Patient states she had socks on and was walking down her wooden steps when she slipped and fell down the last 4-5 steps. She states she landed mostly on her behind but also hit the left side of her posterior ribs. She is having some pain in this area. She denies hitting her head, loss of consciousness. She denies pain anywhere else at this time. She is currently 17 weeks , normal thus far. She denies any abdominal pain, no cramping, no vaginal bleeding. She has no further complaints from the fall. - Related Data Previous Rx's Medication Instructions Recorded FLUoxetine HCL [PROzac] 10 mg PO DAILY #14 cap 12/19/18 Melatonin 3 mg PO HS tablet 12/19/18 hydrOXYzine pamoate [Vistaril] 25 mg PO Q8HR PRN #28 cap 12/19/18 Allergies Allergy/AdvReac Type Severity Reaction Status Date / Time Penicillins Allergy Rash/Hives Verified 09/16/20 20:57 Review of Systems ROS Statement: Those systems with pertinent positive or pertinent negative responses have been documented in the HPI. ROS Other: All systems not noted in ROS Statement are negative. Past Medical History Past Medical History: No Reported History History of Any Multi-Drug Resistant Organisms: None Reported Past Surgical History: Hernia Repair Additional Past Surgical History / Comment(s): lathoscopy Past Anesthesia/Blood Transfusion Reactions: No Reported Reaction Past Psychological History: No Psychological Hx Reported Smoking Status: Former smoker Past Alcohol Use History: Rare Past Drug Use History: Marijuana General Exam - General Exam Comments Initial Comments: GENERAL: Patient is well-developed and well-nourished. Patient is nontoxic and in no acute distress. HEAD: Atraumatic, normocephalic. EYES: Pupils equal round and reactive to light, extraocular movements intact, sclera anicteric, conjunctiva are normal. Eyelids were unremarkable. ENT: TMs normal, nares patent, oropharynx clear without exudates. Moist mucous membranes. NECK: Normal range of motion, supple without lymphadenopathy or JVD. LUNGS: Unlabored respirations. Breath sounds clear to auscultation bilaterally and equal. No wheezes rales or rhonchi. HEART: Regular rate and rhythm without murmurs, rubs or gallops. ABDOMEN: Soft, nontender, normoactive bowel sounds. No guarding, no rebound. No masses appreciated. : Deferred MUSCULOSKELETAL: Normal extremities with adequate strength and normal range of motion, no pitting or edema. No clubbing or cyanosis. She has tenderness with palpation of the left lateral ribs, left posterior ribs. There is no obvious deformity, no crepitus or bruising at this time. NEUROLOGICAL: Patient is alert and oriented x 3. Motor and sensory are also intact. Cranial nerves II through XII grossly intact. Symmetrical smile. Normal speech, normal gait. PSYCH: Normal mood, normal affect. SKIN: Warm, Dry, normal turgor, no rashes or lesions noted. Course Vital Signs 09/16/20 09/16/20 20:52 23:49 Temperature 98.2 F Pulse Rate 72 78 Respiratory 15 18 Rate Blood Pressure 107/66 102/59 O2 Sat by Pulse 99 99 Oximetry Medical Decision Making - Medical Decision Making Patient is a 25-year-old female here, currently 17 weeks presenting after she slipped down about 4 steps at home about an hour prior to arrival. She landed mostly on her behind, hit the left lateral posterior ribs. Chest xray shows no acute abnormalities. We did have OB come down to auscultate heart tones, however they were unable to obtain any tones. At this time we did order an OB ultrasound, no complicating process seen, no evidence of placenta previa or abruption, heart rate was normal 135. Discussed with patient this most likely rib contusion. Recommended Tylenol, heat and/or ice to area for any discomfort. She can follow up with [facility]. Patient is stable for discharge. Patient is in agreement with this plan of care. Return parameters were discussed with the patient and they verbalized understanding. Case discussed with Dr. Olivarez. - Lab Data Lab Results 09/16/20 Range/Units 22:26 Urine Color Light Yellow Urine Appearance Cloudy H (Clear) Urine pH 6.5 (5.0-8.0) Ur Specific [place] 1.001 (1.001-1.035) Urine Protein Negative (Negative) Urine Glucose (UA) Negative (Negative) Urine Ketones Negative (Negative) Urine Blood Negative (Negative) Urine Nitrite Negative (Negative) Urine Bilirubin Negative (Negative) Urine Urobilinogen <2.0 (<2.0) mg/dL Ur Leukocyte Esterase Negative (Negative) Urine WBC 2 (0-5) /hpf Ur Squamous Epith Cells 7 H (0-4) /hpf Amorphous Sediment Few H (None) /hpf Urine Bacteria Occasional H (None) /hpf Urine Mucus Rare H (None) /hpf Disposition Clinical Impression: Fall, Contusion of rib on left side, and not yet delivered in second trimester Disposition: HOME SELF-CARE Condition: Stable Instructions (If sedation given, give patient instructions): Rib Contusion (ED) Additional Instructions: Please return to the Emergency Department if symptoms worsen or any other concerns. May take Tylenol for any discomfort, ice the area. Follow up with your [facility]. Is patient prescribed a controlled substance at d/c from ED?: No Referrals: Wilber Chambers MD [Primary Care Provider] - 1-2 days
[2020-09-16 22:36] LABS: Amorphous Sediment,Urine Few /hpf; Appearance,Urine Cloudy (Clear); Bacteria,Urine Occasional /hpf; Bilirubin,Urine Negative (Negative); Blood,Urine Negative (Negative); Color,Urine Light Yellow; Glucose,Urine (UA) Negative (Negative); Ketones,Urine Negative (Negative); Leukocyte Esterase,Urine Negative (Negative); Mucus,Urine Rare /hpf; Nitrite,Urine Negative (Negative); PH, Urine 6.5 (5.0-8.0); Protein,Urine Negative (Negative); Specific Gravity,Urine 1.001 (1.001-1.035); Squamous Epithelial Cell,Urine 7 /hpf (0-4); Urobilinogen,Urine <2.0 mg/dL (<2.0); WBC,Urine 2 /hpf (0-5)
--- NOTE | 2020-09-16 23:29 | US ---
EXAMINATION TYPE: US OB >= 14 wk fetus DATE OF EXAM: 09/16/2020 COMPARISON: None CLINICAL HISTORY: slip and fall, 17 wks preg Fall. . TECHNIQUE: Transabdominal (TA) GESTATIONAL AGE / DATING Physician Established: (17 weeks/0 days) EDC: 02/24/2021 Dates by LMP: Unknown. Dates by First Scan: This is first scan. Dates by Current Scan: (17 weeks/5 days) EDC: 02/19/2021 SURVEY IUP: Single PLACENTA: Anterior. Two hypoechoic areas seen. #1: 0.8 x 1.0 x 0.6 cm. #2: 0.9 x 1.8 x 0.7 cm. Anecho ic area see: 1.7 x 2.7 x 0.5 cm. PREVIA: Placental edge appears to be 2.2 cm from internal os. LEIGH ANN: 11.14 cm Normal CERVICAL LENGTH (transabdominal: norm > 3.0cm): 3.48 cm BIOMETRY PRESENTATION: Variable LIE: Transverse with head maternal R BPD: 3.78 cm 17 weeks / 4 days HC: 14.70 cm 17 weeks / 6 days AC: 12.30 cm 18 weeks / 0 days FL: 2.54 cm 17 weeks / 5 days ESTIMATED WEIGHT IN GRAMS: 211.27 grams ESTIMATED WEIGHT IN LBS/OZ: 0 lbs. 7 oz. WEIGHT PERCENTAGE BASED ON ESTABLISHED DATES: 90.5% HC/AC: 1.19 Normal FL/AC: 20.63 HEART RATE: 135 bpm RHYTHM: Normal IMPRESSION: The ultrasound gestational age is 17 weeks and 5 days. No complicating process seen. No evidence of p lacenta previa or placental abruption.
--- NOTE | 2020-09-16 23:36 | XR ---
EXAMINATION TYPE: XR chest 1V DATE OF EXAM: 09/16/2020 COMPARISON: 07/18/2018 HISTORY: Fall. Rib pain TECHNIQUE: Single view FINDINGS: Heart and mediastinum are normal. Lungs are clear. Diaphragm is normal. Bony thorax appears normal. There is no pneumothorax. IMPRESSION: Normal chest. No evidence of traumatic injury. No change.
[2020-09-16 23:50] VITALS: BP 102/59; PULSE 78; RESP 18
== END 2020-09-16 23:51 | disposition home or self-care (01) ==
LOC: EC 20:33
DX: O9A.212 Injury, poisoning and certain other consequences of external causes complicating pregnancy, second trimester (principal); S20.212A Contusion of left front wall of thorax, initial encounter; F12.90 Cannabis use, unspecified, uncomplicated; Z87.891 Personal history of nicotine dependence; W10.9XXA Fall (on) (from) unspecified stairs and steps, initial encounter; Y93.01 Activity, walking, marching and hiking; Z3A.17 17 weeks gestation of pregnancy
CPT/HCPCS: 71045; 76805; 81001; 99284

== ENCOUNTER 2020-10-07 09:22 | Emergency (ER) | payer BC, OTHER ==
[2020-10-07 09:30] VITALS: TEMP 98.1
[2020-10-07] MEDS ORDERED: SODIUM CHLORIDE 0.9% 1,000 ML IV STA ×2 (09:32→11:50)
--- NOTE | 2020-10-07 09:49 | ED ---
General Adult HPI - General Chief complaint: Nausea/Vomiting/Diarrhea Stated complaint: 20 wks/nausea/vomiting Time Seen by Provider: 10/07/20 09:31 Source: patient Mode of arrival: ambulatory Limitations: no limitations - History of Present Illness Initial comments: Dictation was produced using [employer] dictation software. please excuse any grammatical, word or spelling errors. This patient was cared for during a federal and state declared state of emergency secondary to Covid 19 Chief Complaint: 25-year-old female is allegedly 20 weeks presents with nausea vomiting and anuria History of Present Illness: 25-year-old female she is allegedly around 20 weeks . Patient has OB follow-up. She is marijuana abuser. She states she's tried to quit marijuana use. States that she has not had marijuana in 2-3 days. She has had poor appetite and poor oral intake. She has not urinated over 12 hours. Patient states she has not really been eating or drinking like she should be. Denies any urinary symptoms. No pain complaints. She has had some mild associated nausea. This is her second . The ROS documented in this emergency department record has been reviewed and confirmed by me. Those systems with pertinent positive or negative responses have been documented in the HPI. All other systems are other negative and/or noncontributory. PHYSICAL EXAM: General Impression: Alert and oriented x3, not in acute distress HEENT: Normocephalic atraumatic, extra-ocular movements intact, pupils equal and reactive to light bilaterally, dry mucous membranes Cardiovascular: Heart regular rate and rhythm Chest: Able to complete full sentences, no retractions, no tachypnea Abdomen: abdomen soft, non-tender, non-distended, no organomegaly Musculoskeletal: Pulses present and equal in all extremities, no peripheral edema Motor: no focal deficits noted Neurological: CN II-XII grossly intact, no focal motor or sensory deficits noted Skin: Intact with no visualized rashes Psych: Normal affect and mood ED course: 25-year-old male presents to the emergency department for anuria, poor oral intake and nausea vomiting. Vital signs upon arrival are within acceptable limits. Bladder scan showed greater than 520 mL. [id number] bedside ultrasound was performed showing no distended urinary bladder. He does present with active heart rate. Laboratory evaluation obtained. Mild leukocytosis of 13.1. This likely physiology of . Metabolic panel is unremarkable. Urinalysis shows 3+ ketones. No evidence for UTI. Patient given multiple boluses of intravenous fluids. She feels much better. Patient strongly urged to hydrate herself especially during . She has nausea medications given to her from her primary care physician the beginning of . Patient is agreeable for discharge she is well-appearing tolerating oral intake. Advised to follow-up with her section beamer. - Related Data Home Medications Medication Instructions Recorded Confirmed No Known Home Medications 10/07/20 10/07/20 Allergies Allergy/AdvReac Type Severity Reaction Status Date / Time Penicillins Allergy Rash/Hives Verified 10/07/20 11:05 Review of Systems ROS Statement: Those systems with pertinent positive or pertinent negative responses have been documented in the HPI. ROS Other: All systems not noted in ROS Statement are negative. Past Medical History Past Medical History: No Reported History History of Any Multi-Drug Resistant Organisms: None Reported Past Surgical History: Hernia Repair Additional Past Surgical History / Comment(s): lathoscopy Past Anesthesia/Blood Transfusion Reactions: No Reported Reaction Past Psychological History: No Psychological Hx Reported Smoking Status: Former smoker Past Alcohol Use History: Rare Past Drug Use History: Marijuana General Exam Limitations: no limitations Course Vital Signs 10/07/20 10/07/20 09:27 11:58 Temperature 98.1 F Pulse Rate 71 72 Respiratory 18 20 Rate Blood Pressure 123/68 105/63 O2 Sat by Pulse 99 97 Oximetry Medical Decision Making - Lab Data Result diagrams: 10/07/20 09:57 10/07/20 09:57 Lab Results 10/07/20 10/07/20 10/07/20 Range/Units 09:57 09:57 09:57 WBC 13.1 H (3.8-10.6) k/uL RBC 4.20 (3.80-5.40) m/uL Hgb 11.7 (11.4-16.0) gm/dL Hct 35.4 (34.0-46.0) % MCV 84.3 (80.0-100.0) fL MCH 27.9 (25.0-35.0) pg MCHC 33.1 (31.0-37.0) g/dL RDW 13.4 (11.5-15.5) % Plt Count 258 (150-450) k/uL MPV 8.6 Neutrophils % 76 % Lymphocytes % 17 % Monocytes % 4 % Eosinophils % 2 % Basophils % 0 % Neutrophils # 9.9 H (1.3-7.7) k/uL Lymphocytes # 2.2 (1.0-4.8) k/uL Monocytes # 0.5 (0-1.0) k/uL Eosinophils # 0.3 (0-0.7) k/uL Basophils # 0.0 (0-0.2) k/uL Sodium 136 L (137-145) mmol/L Potassium 3.9 (3.5-5.1) mmol/L Chloride 106 (98-107) mmol/L Carbon Dioxide 22 (22-30) mmol/L Anion Gap 8 mmol/L BUN 5 L (7-17) mg/dL Creatinine 0.37 L (0.52-1.04) mg/dL Est GFR (CKD-EPI)AfAm >90 (>60 ml/min/1.73 sqM) Est GFR (CKD-EPI)NonAf >90 (>60 ml/min/1.73 sqM) Glucose 99 (74-99) mg/dL Calcium 9.5 (8.4-10.2) mg/dL Magnesium 1.6 (1.6-2.3) mg/dL Total Bilirubin 0.4 (0.2-1.3) mg/dL AST 15 (14-36) U/L ALT 9 (4-34) U/L Alkaline Phosphatase 69 (38-126) U/L Total Protein 7.0 (6.3-8.2) g/dL Albumin 3.8 (3.5-5.0) g/dL Urine Color Yellow Urine Appearance Cloudy H (Clear) Urine pH 6.0 (5.0-8.0) Ur Specific [place] 1.023 (1.001-1.035) Urine Protein Trace H (Negative) Urine Glucose (UA) Negative (Negative) Urine Ketones 3+ H (Negative) Urine Blood Negative (Negative) Urine Nitrite Negative (Negative) Urine Bilirubin Negative (Negative) Urine Urobilinogen 2.0 (<2.0) mg/dL Ur Leukocyte Esterase Negative (Negative) Urine RBC 1 (0-5) /hpf Urine WBC 2 (0-5) /hpf Ur Squamous Epith Cells <1 (0-4) /hpf Amorphous Sediment Occasional H (None) /hpf Urine Mucus Occasional H (None) /hpf Disposition Clinical Impression: Dehydration Disposition: HOME SELF-CARE Condition: Fair Instructions (If sedation given, give patient instructions): Acute Nausea and Vomiting (ED) Is patient prescribed a controlled substance at d/c from ED?: No Referrals: Cale Mcadams DO [Doctor of Osteopathic Medicine] - 1-2 days
[2020-10-07 10:15] LABS: Basophils % (A) 0 %; Eosinophils # (A) 0.3 k/uL (0-0.7); Eosinophils % (A) 2 %; HCT 35.4 % (34.0-46.0); HGB 11.7 gm/dL (11.4-16.0); Lymphocytes # (A) 2.2 k/uL (1.0-4.8); Lymphocytes % (A) 17 %; MCH 27.9 pg (25.0-35.0); MCHC 33.1 g/dL (31.0-37.0); MCV 84.3 fL (80.0-100.0); Mean Platelet Volume 8.6; Monocytes # (A) 0.5 k/uL (0-1.0); Monocytes % (A) 4 %; Neutrophils # (A) 9.9 k/uL (1.3-7.7); Neutrophils % (A) 76 %; Platelet Count 258 k/uL (150-450); RDW 13.4 % (11.5-15.5); WBC 13.1 k/uL (3.8-10.6)
[2020-10-07 10:22] LABS: Amorphous Sediment,Urine Occasional /hpf; Appearance,Urine Cloudy (Clear); Bilirubin,Urine Negative (Negative); Blood,Urine Negative (Negative); Color,Urine Yellow; Glucose,Urine (UA) Negative (Negative); Ketones,Urine 3+ (Negative); Leukocyte Esterase,Urine Negative (Negative); Mucus,Urine Occasional /hpf; Nitrite,Urine Negative (Negative); Protein,Urine Trace (Negative); RBC,Urine 1 /hpf (0-5); Specific Gravity,Urine 1.023 (1.001-1.035); Squamous Epithelial Cell,Urine <1 /hpf (0-4); WBC,Urine 2 /hpf (0-5)
[2020-10-07 10:36] LABS: ALT 9 U/L (4-34); AST 15 U/L (14-36); African American GFR (CKD) >90 (>60 ml/min/1.73 sqM); Albumin 3.8 g/dL (3.5-5.0); Alkaline Phosphatase 69 U/L (38-126); Anion Gap 8 mmol/L; Blood Urea Nitrogen 5 mg/dL (7-17); Calcium 9.5 mg/dL (8.4-10.2); Carbon Dioxide 22 mmol/L (22-30); Chloride 106 mmol/L (98-107); Glucose 99 mg/dL (74-99); Magnesium 1.6 mg/dL (1.6-2.3); Non-African American GFR(CKD) >90 (>60 ml/min/1.73 sqM); Potassium 3.9 mmol/L (3.5-5.1); Sodium 136 mmol/L (137-145); Total Bilirubin 0.4 mg/dL (0.2-1.3)
[2020-10-07] MEDS ORDERED: METOCLOPRAMIDE 5 MG/ML 2 ML VIAL IVP STA (11:51)
[2020-10-07 12:00] VITALS: BP 105/63; PULSE 72; RESP 20
== END 2020-10-07 13:20 | disposition home or self-care (01) ==
LOC: EC 09:22
DX: O99.282 Endocrine, nutritional and metabolic diseases complicating pregnancy, second trimester (principal); E86.0 Dehydration; Z87.891 Personal history of nicotine dependence; Z3A.20 20 weeks gestation of pregnancy
CPT/HCPCS: 51798; 36415; 80053; 83735; 85025; 81001; 99284; 96374; 96361 ×2; J2765

== ENCOUNTER 2020-11-18 21:15 | Outpatient (CLI) | payer BC, OTHER ==
[2020-11-18] MEDS: LACTATED RINGERS 1,000 ML IV SCH ×2 (22:05→23:15)
[2020-11-18 22:43] LABS: Appearance,Urine Cloudy (Clear); Bacteria,Urine Rare /hpf; Bilirubin,Urine Negative (Negative); Blood,Urine Negative (Negative); Color,Urine Light Yellow; Glucose,Urine (UA) Negative (Negative); Ketones,Urine Negative (Negative); Leukocyte Esterase,Urine Negative (Negative); Nitrite,Urine Negative (Negative); PH, Urine 6.5 (5.0-8.0); Protein,Urine Negative (Negative); Specific Gravity,Urine 1.004 (1.001-1.035); Squamous Epithelial Cell,Urine 2 /hpf (0-4); Urobilinogen,Urine <2.0 mg/dL (<2.0); WBC,Urine 1 /hpf (0-5)
[2020-11-18] MEDS ORDERED: BUTORPHANOL 1 MG/ML 1 ML VIAL IV PRN (23:19)
[2020-11-19 01:19] VITALS: BP 120/58; PULSE 81; RESP 16; TEMP 97.2
[2020-11-19] MEDS: LACTATED RINGERS 1,000 ML IV SCH ×2 (01:22→01:23)
--- NOTE | 2020-11-19 08:43 | P.MSEPDOC ---
Presenting Problems - Arrival Data Date of Arrival on Unit: 11/18/20 Time of Arrival on Unit: 21:15 Mode of Transport: Ambulatory - Complaint OB-Reason for Admission/Chief Complaint: Possible Onset of Labor Comment: contractions 2-4 mins apart (began at 0700 but became more painful at 1700) Medical History - Information : 2 Para: 1 Term: 0 : 1 Abortions: Spontaneous or Elective: 0 Number of Living Children: 1 - Gestational Age Gestational Age by SHAR (wks/days): 26 Weeks and 1 Days - History Complications: Prior Comment: marijuana Review of Systems - Review of Systems Constitutional: No problems Breast: No problems ENT: No problems Cardiovascular: No problems Respiratory: No problems Gastrointestinal: No problems Genitourinary: No problems Musculoskeletal: No problems Neurological: No problems Skin: No problems Vital Signs - Temperature Temperature: 97.2 F Temperature Source: Temporal Artery Scan - Pulse Pulse Oximetery Pulse Rate: 81 Pulse Assessment Method: Pulse Oximetry - Respirations Respiratory Rate: 16 Oxygen Delivery Method: Room Air O2 Sat by Pulse Oximetry: 95 - Blood Pressure Right Arm Blood Pressure: 120/58 Blood Pressure Mean: 78 Blood Pressure Source: Automatic Cuff Medical Screen Scoring - Cervical Exam Dilation (cm): 0 Station: -3 Membranes: Intact - Uterine Contractions Frequency From (mins): 2 Frequency To (mins): 5 Duration From (seconds): 30 Duration To (seconds): 90 Intensity: Moderate Resting: Soft to palpation - Assessment - Baby A Baseline FHR: 135 Heart Rate - NICHD Category: Category I (Normal) Physician Notification - Physician Notified Physician Notified Date: 11/18/20 Physician Notified Time: 21:42 Physician: Juana Macario New Order Received: Yes - Notification Comment Comment: [phone]-Dr. Macario on unit. Report given on maternal/ status, contractions since. this morning worse since 1700. Pt has a hx of a delivery at 33weeks. Pt is. dilan every 2-4 mins and hurting. FFN and amnisure collected (amnisure negative). Cervix closed/thick. Orders to send FFN, give IV hydration via 1L LR. and send a UA. Call with results. [phone]-Dr. Macario called, updated on negative FFN, UA clean, contractions initially. spaced out following void however are now 2mins apart again and pt is in pain. Orders to. recheck cervix, hydrate with 1 more liter of LR, and offer pt 1mg IVP stadol for pain. Monitor for another hour or 2 and call back. 11/19 53- Dr. Macario called, update given on maternal and status, pt states her. contractions have spaced out and she is in no pain at this time. FHTs continue to look. good. Orders to discharge pt home with instructions for pelvic rest, monitor. contractions, increase fluids, and see Dr. Mcadams again within a week. Maternal Triage Index - Maternal Triage Index Presenting for scheduled procedure w/no complaint: No - Stat/Priority 1 Stat Priority 1: No - Urgent/Priority 2 Urgent Priority 2: Yes Provider Notified: Juana Macario Provider Notified Time: 21:42 Criteria Met for Priority 2: 26weeks, painful contractions 2-3mins apart initially upon admission Disposition - Disposition OB Disposition: Discharge to home Discharge Date: 11/19/20 Discharge Time: 01:05 I agree with the RN Medical Screening Exam: Yes Case reviewed; plan agreed upon as documented in EMR&OBIX.: Yes Diagnosis: RELATED CONDITIONS, UNSPECIFIED, SECOND TRIMESTER ( contractions without cervical change and negative FFN.)
== END 2020-11-19 01:05 | disposition home or self-care (01) ==
LOC: FBPOP 21:15
PROVIDERS: ATTEND Obstetrics & Gynecology
DX: O26.92 Pregnancy related conditions, unspecified, second trimester (principal); Z3A.26 26 weeks gestation of pregnancy; Z88.0 Allergy status to penicillin
CPT/HCPCS: 81001; 82731; 96361; 96365; 99214

== ENCOUNTER 2020-12-20 20:45 | Observation (INO) | payer BC, OTHER ==
[2020-12-20] MEDS: LACTATED RINGERS 1,000 ML IV SCH ×2 (21:16→23:07)
[2020-12-20 21:24] LABS: Appearance,Urine Cloudy (Clear); Bacteria,Urine Occasional /hpf; Bilirubin,Urine Negative (Negative); Blood,Urine Negative (Negative); Color,Urine Light Yellow; Glucose,Urine (UA) Negative (Negative); Hyaline Casts,Urine 1 /lpf (0-2); Ketones,Urine Negative (Negative); Leukocyte Esterase,Urine Trace (Negative); Mucus,Urine Rare /hpf; Nitrite,Urine Negative (Negative); PH, Urine 6.5 (5.0-8.0); Protein,Urine Negative (Negative); RBC,Urine 2 /hpf (0-5); Specific Gravity,Urine 1.009 (1.001-1.035); Squamous Epithelial Cell,Urine 11 /hpf (0-4); Urobilinogen,Urine <2.0 mg/dL (<2.0); WBC,Urine 5 /hpf (0-5)
[2020-12-20] MEDS ORDERED: MAGNESIUM SULFATE-WATER PMX 4 GM in WATER FOR INJECTION 1 100ML.BAG IVPB ONE (21:43)
[2020-12-20] MEDS ORDERED: MAGNESIUM SULFATE-WATER PMX 20 GM in WATER FOR INJECTION 1 500ML.BAG IV SCH (22:15)
[2020-12-20] MEDS ORDERED: INDOMETHACIN 25 MG CAP PO STA (22:43)
[2020-12-20] MEDS ORDERED: BETAMET ACET-BETAMETH SOD PHOS 6 MG/ML MDV IM SCH (23:00)
[2020-12-20] MEDS ORDERED: MAG HYDROX/AL HYDROX/SIMETH 30 ML CUP PO PRN (23:11)
[2020-12-20] MEDS ORDERED: LACTATED RINGERS 1,000 ML IV SCH (23:30)
[2020-12-20 23:31] VITALS: BP 129/70; PULSE 95; RESP 18; TEMP 97.2
--- NOTE | 2020-12-21 00:17 | US ---
EXAMINATION TYPE: US OB >= 14 wk fetus DATE OF EXAM: 12/21/2020 COMPARISON: US 09/16/2020 CLINICAL HISTORY: laborPreterm labor per order. . TECHNIQUE: Transabdominal (TA) GESTATIONAL AGE / DATING Physician Established: (30 weeks/4 days) EDC: 02/24/2021 Dates by LMP: Unknown. Dates by First Scan: (31 weeks/2 days) EDC: 02/19/2021 Dates by Current Scan: (31 weeks/0 days) EDC: 02/21/2021 SURVEY IUP: Single PLACENTA: Anterior. Appears very heterogeneous. Complex areas seen within, largest measures 2.1 x 1.1 x 1.4 cm. PREVIA: No LEIGH ANN: 12.45 cm Normal CERVICAL LENGTH (transabdominal: norm > 3.0cm): 3.21 cm. Slightly limited. No transvaginal exam pal wade per RN. BIOMETRY PRESENTATION: Vertex LIE: Longitudinal BPD: 7.83 cm 31 weeks / 3 days HC: 29.76 cm 33 weeks / 0 days AC: 27.68 cm 31 weeks / 5 days FL: 5.77 cm 30 weeks / 1 day ESTIMATED WEIGHT IN GRAMS: 1751 grams ESTIMATED WEIGHT IN LBS/OZ: 3 lbs. 14 oz. WEIGHT PERCENTAGE BASED ON ESTABLISHED DATES: 65.3% HC/AC: 1.08 Normal FL/AC: 20.84 Normal HEART RATE: 140 bpm RHYTHM: Normal IMPRESSION: There is satisfactory growth compared to old exam. No complicating process seen. there is grade 2 placenta.
[2020-12-21] MEDS ORDERED: AZITHROMYCIN 500 MG in SODIUM CHLORIDE 0.9% 250 ML IVPB STA (02:21)
--- NOTE | 2020-12-21 03:02 | P.HPOB ---
History of Present Illness H&P Date: 12/21/20 Chief Complaint: PROM 25-year-old presented at 30 weeks and 3 days complaining of contractions. She has history of delivery at 33 weeks. She was supposed to be on progesterone injections with this but there were having insurance issues covering it. fibronectin was done when patient presented and was negative but she was continuing to contract. Her cervix was 1 cm dilated, uneffaced, -3 station. She was dilan every 2 minutes. heart tones 1:30 with moderate variability and reactive. She was admitted for magnesium sulfate administration. She was also given one dose of Celestone. When shortly after 2 AM her water broke, clear fluid. The decision was made to transfer to a tertiary facility where they can care for a severe infant. Review of Systems All systems: negative Constitutional: Denies chills, Denies fever Eyes: denies blurred vision, denies pain Ears, nose, mouth and throat: Denies headache, Denies sore throat Cardiovascular: Denies chest pain, Denies shortness of breath Respiratory: Denies cough Gastrointestinal: Denies abdominal pain, Denies diarrhea, Denies nausea, Denies vomiting Genitourinary: Denies dysuria, Denies hematuria Musculoskeletal: Denies myalgias Integumentary: Denies pruritus, Denies rash Neurological: Denies numbness, Denies weakness Psychiatric: Denies anxiety, Denies depression Endocrine: Denies fatigue, Denies weight change Past Medical History Past Medical History: No Reported History History of Any Multi-Drug Resistant Organisms: None Reported Past Surgical History: Hernia Repair Additional Past Surgical History / Comment(s): lathoscopy Past Anesthesia/Blood Transfusion Reactions: No Reported Reaction Past Psychological History: No Psychological Hx Reported Smoking Status: Never smoker Past Alcohol Use History: Rare Past Drug Use History: Marijuana Additional Drug Use History / Comment(s): pt states smokes marijuana 2x/week - Past Family History Father Family Medical History: No Reported History Medications and Allergies Home Medications Medication Instructions Recorded Confirmed Type Pnv,Calcium 72/Iron/Folic Acid 1 tab PO ONCE 11/18/20 12/20/20 History [ Plus Tablet] Allergies Allergy/AdvReac Type Severity Reaction Status Date / Time Penicillins Allergy Rash/Hives Verified 11/18/20 21:26 Exam Osteopathic Statement: *. No significant issues noted on an osteopathic structural exam other than those noted in the History and Physical/Consult. Vital Signs Temp Pulse Resp BP Pulse Ox 12/20/20 23:07 97.2 F L 95 18 129/70 96 Intake and Output 12/20/20 12/20/20 12/21/20 14:59 22:59 06:59 Other: Weight 78.925 kg 78.925 kg Heart: Regular rate and rhythm Lungs: Clear to auscultation bilaterally Abdomen: Soft, nontender Extremities: Negative Homans sign Results Abnormal Lab Results - Last 24 Hours (Table) 12/20/20 Range/Units 21:05 Urine Appearance Cloudy H (Clear) Ur Leukocyte Esterase Trace H (Negative) Ur Squamous Epith Cells 11 H (0-4) /hpf Urine Bacteria Occasional H (None) /hpf Urine Mucus Rare H (None) /hpf Assessment and Plan (1) Premature rupture of membranes Current Visit: Yes Status: Acute Code(s): O42.90 - URBANO ROM, 7TH0 BETW RUPT & ONST LABR, UNSP WEEKS OF GEST SNOMED Code(s): 77351557 (2) labor Current Visit: Yes Status: Acute Code(s): O60.00 - LABOR WITHOUT DELIVERY, UNSPECIFIED TRIMESTER SNOMED Code(s): 6306737 (3) History of delivery Current Visit: Yes Status: Acute Code(s): Z87.51 - PERSONAL HISTORY OF PRE- TERM LABOR SNOMED Code(s): 895197739 Plan: 1. Continue mag sulfate 2. Transfer patient to [facility] who have accepted her care. 3. I discussed all risks, benefits and alternatives with the patient in regards to staying here in delivering versus going to [facility] and what to expect when she gets there.
[2020-12-21] MEDS ORDERED: ONDANSETRON 4 MG/2 ML VIAL IVP STA (03:52)
[2020-12-21] MEDS ORDERED: INDOMETHACIN 25 MG CAP PO SCH (05:00)
== END 2020-12-21 04:00 ==
LOC: FBPOP 20:45 → 4FBP 22:53
PROVIDERS: ADMIT Obstetrics & Gynecology; ATTEND Obstetrics & Gynecology
DX: O60.03 Preterm labor without delivery, third trimester (principal); Z3A.30 30 weeks gestation of pregnancy; O09.213 Supervision of pregnancy with history of pre-term labor, third trimester; O42.913 Preterm premature rupture of membranes, unspecified as to length of time between rupture and onset of labor, third trimester; F12.90 Cannabis use, unspecified, uncomplicated; O99.323 Drug use complicating pregnancy, third trimester; Z88.0 Allergy status to penicillin; Z87.19 Personal history of other diseases of the digestive system
CPT/HCPCS: 59025; 99215; 96361; 96365; 96366; 96372; 96375 ×2; 82731; 81001; 76805; G0378 ×3; J2405; J0456; J3475 ×2; J0702

== ENCOUNTER 2021-01-05 20:50 | Inpatient (IN) | payer BC, OTHER ==
[2021-01-05] MEDS: LACTATED RINGERS 1,000 ML IV SCH ×2 (21:54→23:36)
[2021-01-05] MEDS ORDERED: MAGNESIUM SULFATE-WATER PMX 4 GM in WATER FOR INJECTION 1 100ML.BAG IVPB ONE (23:39)
[2021-01-06] MEDS: BETAMET ACET-BETAMETH SOD PHOS 6 MG/ML MDV IM SCH (00:31)
[2021-01-06] MEDS: MAGNESIUM SULFATE-WATER PMX 20 GM in WATER FOR INJECTION 1 500ML.BAG IV SCH ×2 (00:44→10:22)
--- NOTE | 2021-01-06 05:05 | P.HPOB ---
History of Present Illness H&P Date: 01/06/21 Chief Complaint: contractions 25 year old present at 33 weeks with contractions. She was transferred to [facility] a few weeks ago and given a course of celestone. She had ruptured membranes at that point and the M believes the hole sealed over as she is no longer leaking. Tonight she presented with the same dilation she was and an FFN and amniosure were neg tonight. IV fluids did not stop her contractions and her cervix changed (per nursing) from 1-2/60/-3 to 2-3/60/-3. When I checked her this morning, I thought her cervix is 2/60/-3. I admitted her for mag sulfate and another celestone course. Her contractions have gotten weaker and her cervix is not changing. Review of Systems All systems: negative Constitutional: Denies chills, Denies fever Eyes: denies blurred vision, denies pain Ears, nose, mouth and throat: Denies headache, Denies sore throat Cardiovascular: Denies chest pain, Denies shortness of breath Respiratory: Denies cough Gastrointestinal: Denies abdominal pain, Denies diarrhea, Denies nausea, Denies vomiting Genitourinary: Denies dysuria, Denies hematuria Musculoskeletal: Denies myalgias Integumentary: Denies pruritus, Denies rash Neurological: Denies numbness, Denies weakness Psychiatric: Denies anxiety, Denies depression Endocrine: Denies fatigue, Denies weight change Past Medical History Past Medical History: No Reported History History of Any Multi-Drug Resistant Organisms: None Reported Past Surgical History: Hernia Repair Additional Past Surgical History / Comment(s): exploratory lap Past Anesthesia/Blood Transfusion Reactions: No Reported Reaction Past Psychological History: No Psychological Hx Reported Smoking Status: Never smoker Past Alcohol Use History: None Reported, Rare Past Drug Use History: Marijuana Additional Drug Use History / Comment(s): pt reports marijuana use daily - Past Family History Father Family Medical History: No Reported History Medications and Allergies Home Medications Medication Instructions Recorded Confirmed Type Pnv,Calcium 72/Iron/Folic Acid 1 tab PO ONCE 11/18/20 01/05/21 History [ Plus Tablet] Allergies Allergy/AdvReac Type Severity Reaction Status Date / Time Penicillins Allergy Rash/Hives Verified 01/05/21 21:44 Exam Osteopathic Statement: *. No significant issues noted on an osteopathic structural exam other than those noted in the History and Physical/Consult. Vital Signs Temp Pulse Resp BP Pulse Ox 01/06/21 04:19 97.1 F L 75 18 108/54 97 01/06/21 03:20 72 16 96/50 96 01/06/21 02:20 68 16 88/45 98 01/06/21 01:50 75 18 99/58 01/06/21 01:20 75 16 83/46 01/06/21 01:05 76 14 102/54 01/06/21 00:50 76 18 97/54 01/06/21 00:35 81 16 116/56 01/05/21 23:52 72 16 124/68 01/05/21 21:43 97.7 F 89 16 117/56 96 Intake and Output 01/05/21 01/05/21 01/06/21 14:59 22:59 06:59 Output Total 800 Balance -800 Output: Urine 800 Other: Weight 77.111 kg 77.111 kg Heart: Regular rate and rhythm Lungs: Clear to auscultation bilaterally Abdomen: Soft, nontender Extremities: Negative Homans sign Assessment and Plan (1) History of delivery Current Visit: No Status: Acute Code(s): Z87.51 - PERSONAL HISTORY OF PRE- TERM LABOR SNOMED Code(s): 149238176 (2) labor Current Visit: No Status: Acute Code(s): O60.00 - LABOR WITHOUT DELIVERY, UNSPECIFIED TRIMESTER SNOMED Code(s): 0835773 Plan: 1. Continue mag sulfate 2. Another course of Celestone 3. Monitor for contractions
[2021-01-06 07:22] VITALS: RESP 16
[2021-01-06] MEDS: LACTATED RINGERS 1,000 ML IV SCH (07:23)
[2021-01-06] MEDS: ONDANSETRON 4 MG/2 ML VIAL IVP PRN (10:22)
--- NOTE | 2021-01-06 12:13 | P.PN ---
Progress Note - Text Progress Note Date: 01/06/21 Patient is doing well this afternoon. She is not having any contractions on magnesium sulfate and we are awaiting the second dose of steroids to began. We'll likely discontinue mag sulfate following that dose in the morning. She has no signs or symptoms of the magnesium sulfate and is feeling well. Catheter is in and she is producing adequate urine. We'll allow her to have a diet and continue observational care. It is noted that her fibronectin is negative but she is dilated to 2 semicircular 60% effaced a category 1 tracing is noted. This exam is consistent with her exam last night and this morning. Continue current care.
[2021-01-06] MEDS ORDERED: ACETAMINOPHEN TAB 500 MG TAB PO PRN (15:01)
--- NOTE | 2021-01-06 20:40 | P.PN ---
Progress Note - Text Progress Note Date: 01/06/21 Patient is seen and evaluated again this evening. Short time ago she related that she felt very well and that her blanket was wet below her bed where she was sitting. And an Essure was done and was negative. The nurse did note that it was wet but it was very cold I'm wondering if there was some leaking around her Gonzalez catheter as the amnio sure is negative. We will remove Gonzalez catheter discontinue magnesium sulfate at this time as she is predominantly asymptomatic. She does have some increase in the contractions but no other digital exam done this evening shows her cervix to remain at 2 and 60 and -3 station. She will receive her second dose of Celestone at 12:15 tonight. All the questions are answered for she and her family at this time. We'll continue conservative management but transfer of care is still certainly a possibility should we determined that the membranes are ruptured or she begins to make cervical change. Ultrasound has been ordered to verify amniotic fluid index.
--- NOTE | 2021-01-06 22:31 | US ---
EXAMINATION TYPE: US OB limited DATE OF EXAM: 01/06/2021 COMPARISON: US CLINICAL HISTORY: LEIGH ANN. LEIGH ANN only per order. . Hx 1 miscarriage. EXAM PERFORMED: Transabdominal (TA) GESTATIONAL AGE / DATING Physician Established: (33 weeks/0 days) EDC: 02/24/2021 No growth performed on today?s study per ordering physician SURVEY LEIGH ANN: 13.17 cm Normal Ultrasound evidence of premature rupture of membranes? No evidence of premature rupture of membra prasanth at this time. PRESENTATION: Vertex HEART RATE: 126 bpm RHYTHM: Normal IMPRESSION: Amniotic fluid appears adequate. heart rate is 126. No complicating process.
[2021-01-07] MEDS: ONDANSETRON 4 MG/2 ML VIAL IVP PRN (01:09)
[2021-01-07] MEDS: BETAMET ACET-BETAMETH SOD PHOS 6 MG/ML MDV IM SCH (01:09)
[2021-01-07] MEDS ORDERED: BUTORPHANOL 1 MG/ML 1 ML VIAL IV PRN (01:15)
[2021-01-07 08:38] VITALS: BP 95/56; PULSE 68; TEMP 97.3
--- NOTE | 2021-01-07 11:24 | P.DS ---
Providers Date of admission: 01/06/21 05:08 Expected date of discharge: 01/07/21 Attending physician: Yadira Ribera Primary care physician: Stated None Hospital Course: Patient is seen and evaluated again this morning. She is made no further cervical change. She is complaining of increase in pressure. It is noted by her that the nurses more told her that she felt like the baby was lower I did not really notice this but she is not fixated on this as a concept and is more concerned about having a baby early. She is not dilan this time she has no other signs or symptoms of of imminent delivery. However, she and I did talk about options and 5 range for to have appointments after with maternal- medicine and make sure there is nothing else that we would change her do differently as she is still only 33 weeks and is too early for hospital anyway. Her vital signs are otherwise stable and she is afebrile. Heart regular, lungs clear, extremities without pain. Abdomen soft and no contractions are noted on the monitor this time any category 1 tracing is noted. She and I did briefly discuss potentially putting her on some type of medication like Brethine or Procardia as a. Fourth contractions been explained this would not stop labor but it may be some contractions but the side effects may be some that she doesn't want to try and at this time she is against initiating this type of therapy. Otherwise she is stable at this time for discharge and we'll plan discharged home today with her having an appointment with the maternal- medicine specialist this afternoon. Patient Condition at Discharge: Stable Plan - Discharge Summary New Discharge Prescriptions: No Action Pnv,Calcium 72/Iron/Folic Acid [ Plus Tablet] 1 tab PO ONCE Discharge Medication List Pnv,Calcium 72/Iron/Folic Acid [ Plus Tablet] 1 tab PO ONCE 11/18/20 [History]
== END 2021-01-07 11:55 | disposition home or self-care (01) | DRG 833 ==
LOC: FBPOP 20:50 → 4FBP 23:41 → OBSVTOIN 01-06 05:08
PROVIDERS: ADMIT Obstetrics & Gynecology; ATTEND Obstetrics & Gynecology
DX: O60.03 Preterm labor without delivery, third trimester (principal); O09.213 Supervision of pregnancy with history of pre-term labor, third trimester; Z3A.33 33 weeks gestation of pregnancy; Z98.890 Other specified postprocedural states; Z88.0 Allergy status to penicillin
CPT/HCPCS: 59025; 76815; 82731; 84112; 96360; 96361; 99214

== ENCOUNTER 2021-01-15 10:34 | Outpatient (CLI) | payer BC, OTHER ==
[2021-01-15] MEDS: LACTATED RINGERS 1,000 ML IV SCH ×2 (11:43→12:25)
[2021-01-15 13:47] VITALS: BP 114/66; PULSE 88; RESP 16; TEMP 97.3
--- NOTE | 2021-01-20 07:35 | P.MSEPDOC ---
Presenting Problems - Arrival Data Date of Arrival on Unit: 01/15/21 Time of Arrival on Unit: 10:36 Mode of Transport: Ambulatory - Complaint OB-Reason for Admission/Chief Complaint: Possible Onset of Labor Comment: pt reports contractions since yesterday afternoon Medical History - Information : 3 Para: 1 Term: 0 : 1 Abortions: Spontaneous or Elective: 1 Number of Living Children: 1 - Gestational Age Gestational Age by SHAR (wks/days): 34 Weeks and 2 Days - History Comment: prior delivery, hospitalized x2 with this , transfer x1, betamethasone two rounds of 2 doses Review of Systems - Review of Systems Constitutional: No problems Breast: No problems ENT: No problems Cardiovascular: No problems Respiratory: No problems Gastrointestinal: No problems Genitourinary: No problems Musculoskeletal: No problems Neurological: No problems Skin: No problems Vital Signs - Temperature Temperature: 97.3 F Temperature Source: Temporal Artery Scan - Pulse Right Brachial Pulse Rate: 88 Pulse Assessment Method: Automatic Cuff - Respirations Respiratory Rate: 16 Oxygen Delivery Method: Room Air - Blood Pressure Right Arm Blood Pressure: 114/66 Blood Pressure Mean: 82 Blood Pressure Source: Automatic Cuff Medical Screen Scoring - Cervical Exam Dilation (cm): 2 Effacement (%): 40 Station: -2 Membranes: Intact - Uterine Contractions Frequency From (mins): 1 Frequency To (mins): 7 Duration From (seconds): 20 Duration To (seconds): 60 Intensity: Mild Resting: Soft to palpation - Assessment - Baby A Baseline FHR: 130 Heart Rate - NICHD Category: Category I (Normal) NST: Reactive Physician Notification - Physician Notified Physician Notified Date: 01/15/21 Physician Notified Time: 11:23 Physician: Juana Macario Order Received: Yes - Notification Comment Comment: iv hydration, recheck cervix in one hour, spoke again at 1222, continue iv hydration and recheck cervix in one hour, 1314 spoke again, no cervical change in two hours, Maternal Triage Index - Maternal Triage Index Presenting for scheduled procedure w/no complaint: No - Stat/Priority 1 Stat Priority 1: No - Urgent/Priority 2 Urgent Priority 2: No - Prompt/Priority 3 Prompt Priority 3: Yes Criteria Met for Priority 3: 34 weeks, dilan, history of delivery, Disposition - Disposition OB Disposition: Discharge to home Discharge Date: 01/15/21 Discharge Time: 13:26 I agree with the RN Medical Screening Exam: Yes Case reviewed; plan agreed upon as documented in EMR&OBIX.: Yes Diagnosis: FALSE LABOR BEFORE 37 COMPLETED WEEKS OF GEST, THIRD TRI
== END 2021-01-15 13:26 | disposition home or self-care (01) ==
LOC: FBPOP 10:34
PROVIDERS: ATTEND Obstetrics & Gynecology
DX: O47.03 False labor before 37 completed weeks of gestation, third trimester (principal); Z3A.34 34 weeks gestation of pregnancy
CPT/HCPCS: 59025; 96360; 96361; 96366; 96367; 99213; 99214

== ENCOUNTER 2021-01-23 10:49 | Outpatient (CLI) | payer BC, OTHER ==
[2021-01-23] MEDS ORDERED: ONDANSETRON 4 MG/2 ML VIAL IVP STA (11:18)
[2021-01-23] MEDS ORDERED: LACTATED RINGERS 1,000 ML IV SCH (11:30)
[2021-01-23 12:22] LABS: Appearance,Urine Cloudy (Clear); Bacteria,Urine Rare /hpf; Bilirubin,Urine Negative (Negative); Blood,Urine Negative (Negative); Color,Urine Yellow; Glucose,Urine (UA) Negative (Negative); Ketones,Urine Negative (Negative); Leukocyte Esterase,Urine Small (Negative); Mucus,Urine Occasional /hpf; Nitrite,Urine Negative (Negative); Protein,Urine Negative (Negative); RBC,Urine <1 /hpf (0-5); Specific Gravity,Urine 1.018 (1.001-1.035); Squamous Epithelial Cell,Urine 9 /hpf (0-4); Urobilinogen,Urine <2.0 mg/dL (<2.0); WBC,Urine 9 /hpf (0-5)
[2021-01-23 13:30] VITALS: BP 122/73; PULSE 82; RESP 17; TEMP 98.4
--- NOTE | 2021-01-23 17:11 | P.MSEPDOC ---
Presenting Problems - Arrival Data Date of Arrival on Unit: 01/23/21 Time of Arrival on Unit: 10:49 Mode of Transport: Ambulatory - Complaint OB-Reason for Admission/Chief Complaint: Acute Nausea/Vomiting Comment: pt denies lof/vb/contractions, pt reports being admitted to [facility] for. questional rom last month, pt reports second rom test came back negative and they dcd her home, pt presents to triage today with c/o vomitting since last night, pt denies illness in her home and that she has not been able to keep any fluid or solids down since last night, abd soft and non tender, reports + fm Medical History - Information : 3 Para: 1 Term: 0 : 1 Abortions: Spontaneous or Elective: 1 Number of Living Children: 1 - Gestational Age Gestational Age by SHAR (wks/days): 35 Weeks and 3 Days Review of Systems - Review of Systems Constitutional: No problems Breast: No problems ENT: No problems Cardiovascular: No problems Respiratory: No problems Gastrointestinal: No problems Genitourinary: No problems Musculoskeletal: No problems Neurological: No problems Skin: No problems Vital Signs - Temperature Temperature: 98.4 F Temperature Source: Oral - Pulse Right Brachial Pulse Rate: 82 Pulse Assessment Method: Automatic Cuff - Respirations Respiratory Rate: 17 Oxygen Delivery Method: Room Air - Blood Pressure Right Arm Blood Pressure: 122/73 Blood Pressure Mean: 89 Blood Pressure Source: Automatic Cuff Medical Screen Scoring - Cervical Exam Dilation (cm): 1 Effacement (%): 50 Station: -3 Membranes: Intact - Assessment - Baby A Baseline FHR: 130 Heart Rate - NICHD Category: Category I (Normal) NST: Reactive Physician Notification - Physician Notified Physician Notified Date: 01/23/21 Physician Notified Time: 13:00 Physician: Dr Bacilio Robledo Order Received: Yes (dc home) Maternal Triage Index - Non-Urgent/Priority 4 Non-Urgent Priority 4: Yes Criteria Met for Priority 4: vomitting x 1 day Disposition - Disposition OB Disposition: Discharge to home, Written follow up instructions reviewed Discharge Date: 01/23/21 Discharge Time: 13:10 I agree with the RN Medical Screening Exam: Yes Case reviewed; plan agreed upon as documented in EMR&OBIX.: Yes Diagnosis: VOMITING OF , UNSPECIFIED
== END 2021-01-23 13:10 | disposition home or self-care (01) ==
LOC: FBPOP 10:49
PROVIDERS: ATTEND Obstetrics & Gynecology
DX: O21.2 Late vomiting of pregnancy (principal); Z3A.35 35 weeks gestation of pregnancy
CPT/HCPCS: 59025; 81001; 96360; 99214

== ENCOUNTER 2021-01-26 09:54 | Outpatient (CLI) | payer BC, OTHER ==
[2021-01-26 11:30] VITALS: BP 113/63; PULSE 86; RESP 16; TEMP 97.2
--- NOTE | 2021-01-26 11:37 | US ---
EXAMINATION TYPE: US OB >= 14 wk fetus DATE OF EXAM: 01/26/2021 COMPARISON: US CLINICAL HISTORY: 35 6/7 wks. ?srom. leigh ann/efwPatient felt vaginal leakage today; ; negative Amisur e per patient's RN, Nereida. TECHNIQUE: Transabdominal (TA) GESTATIONAL AGE / DATING Physician Established: (35 weeks/6 days) EDC: 02/24/2021 Dates by LMP: LMP unknown Dates by First Scan: (36 weeks/4 days) EDC: 02/19/2021 Dates by Current Scan: (35 weeks/5 days) EDC: 02/25/2021 Beta HCG (if available): NA SURVEY IUP: Single PLACENTA: Anterior PREVIA: No Previa LEIGH ANN: 10.2 cm Normal CERVICAL LENGTH (transabdominal: norm > 3.0cm): 4.9 cm BIOMETRY PRESENTATION: Vertex LIE: Longitudinal BPD and HC: NA as head too low for accurate caliper measurements AC: 32.4 cm 36 weeks / 0 days FL: 6.9 cm 35 weeks / 4 days ESTIMATED WEIGHT IN GRAMS: 2838.0 grams ESTIMATED WEIGHT IN LBS/OZ: 6 lbs. 4 oz. WEIGHT PERCENTAGE BASED ON ESTABLISHED DATES: 56.2% FL/AC: 21.62 Normal HEART RATE: 148 bpm RHYTHM: Normal Single, live IUP, (35 weeks/5 days, EDC: 02/25/2021, [id number]. Patient's RN, Nereida, was notified of p rick's results at exam's end. IMPRESSION: Single viable intrauterine as noted above.
== END 2021-01-26 11:20 | disposition home or self-care (01) ==
LOC: FBPOP 09:54
PROVIDERS: ATTEND Obstetrics & Gynecology
DX: O42.913 Preterm premature rupture of membranes, unspecified as to length of time between rupture and onset of labor, third trimester (principal); Z3A.35 35 weeks gestation of pregnancy; Z88.0 Allergy status to penicillin
CPT/HCPCS: 59025; 76805; 84112

== ENCOUNTER 2021-02-02 06:30 | Inpatient (IN) | payer BC, OTHER ==
[2021-02-02] MEDS ORDERED: CARBOPROST TROMETHAMINE 250 MCG/ML 1 ML AMP IM PRN (07:15)
[2021-02-02] MEDS ORDERED: METHYLERGONOVINE 0.2 MG/ML 1 ML AMP IM PRN (07:15)
[2021-02-02] MEDS ORDERED: TERBUTALINE 1 MG/ML VIAL SQ PRN (07:15)
[2021-02-02] MEDS ORDERED: LIDOCAINE 0.5% (PF) 5 MG/ML (50 ML SDV) SQ PRN (07:15)
[2021-02-02] MEDS ORDERED: OXYTOCIN 10 UNIT/ML 1 ML VIAL IM PRN (07:15)
[2021-02-02 07:48] LABS: Basophils % (A) 0 %; Eosinophils # (A) 0.1 k/uL (0-0.7); Eosinophils % (A) 1 %; HCT 35.7 % (34.0-46.0); HGB 11.9 gm/dL (11.4-16.0); Hypochromasia Slight; Lymphocytes # (A) 2.4 k/uL (1.0-4.8); Lymphocytes % (A) 17 %; MCH 28.8 pg (25.0-35.0); MCHC 33.4 g/dL (31.0-37.0); MCV 86.2 fL (80.0-100.0); Mean Platelet Volume 9.7; Monocytes # (A) 0.6 k/uL (0-1.0); Monocytes % (A) 4 %; Neutrophils % (A) 77 %; Platelet Count 319 k/uL (150-450); Poikilocytosis Slight; RBC 4.15 m/uL (3.80-5.40); RDW 15.4 % (11.5-15.5); WBC 14.2 k/uL (3.8-10.6)
[2021-02-02 08:04] LABS: Amphetamine Screen,Urine Not Detected (NotDetected); Barbiturate Screen,Urine Not Detected (NotDetected); Benzodiazepines Screen,Urine Not Detected (NotDetected); Cocaine Screen,Urine Not Detected (NotDetected); Methadone Screen, Urine Not Detected (NotDetected); Opiate Screen,Urine Not Detected (NotDetected); Oxycodone Screen, Urine Not Detected (NotDetected); Phencyclidine Screen,Urine Not Detected (NotDetected); Tricyclic Antidepressant,Urine Not Detected (NotDetected); Urn Cannabinoid Scrn Detected (NotDetected)
[2021-02-02] MEDS ORDERED: METOCLOPRAMIDE 5 MG/ML 2 ML VIAL IVP STA (08:30)
[2021-02-02] MEDS: LACTATED RINGERS 1,000 ML IV SCH ×2 (08:41→16:19)
[2021-02-02] MEDS ORDERED: OXYTOCIN 30 UNITS/500 ML NS 30 UNIT in SALINE 1 500ML.BAG IV SCH (08:45)
[2021-02-02] MEDS ORDERED: fentaNYL (PF) 50 MCG/ML 5 ML AMP ONE (09:24)
[2021-02-02] MEDS ORDERED: SODIUM CHLORIDE 0.9% 100 ML BAG ONE (09:24)
[2021-02-02] MEDS ORDERED: ROPIVACAINE 5MG/ML 20ML VIAL ONE (09:24)
[2021-02-02] MEDS ORDERED: ROPIVACAINE 100 MG, fentaNYL (PF). 200 MCG in SODIUM CHLORIDE 0.9% 76 ML EPIDURAL ONE (09:49)
[2021-02-02] MEDS ORDERED: SIMETHICONE 80 MG CHEWABLE PO PRN (11:39)
[2021-02-02] MEDS ORDERED: diphenhydrAMINE 50 MG CAP PO PRN (11:39)
[2021-02-02] MEDS ORDERED: HYDROCORTISONE 2.5% RECTAL CREAM 30 GM TUBE RECTAL PRN (11:39)
[2021-02-02] MEDS ORDERED: ZOLPIDEM 5 MG TAB PO PRN (11:39)
[2021-02-02] MEDS ORDERED: BENZOCAINE/MENTHOL SPRAY 1 GM/SPRAY AEROSOL TOPICAL PRN (11:39)
[2021-02-02] MEDS ORDERED: diphenhydrAMINE 25 MG CAP PO PRN (11:39)
[2021-02-02] MEDS ORDERED: LANOLIN CREAM 5 GM TUBE TOPICAL PRN (11:39)
[2021-02-02] MEDS ORDERED: diphenhydrAMINE 50 MG/ML 1 ML VIAL IVP PRN ×2 (11:39)
--- NOTE | 2021-02-02 11:43 | P.HPOB ---
History of Present Illness H&P Date: 02/02/21 Chief Complaint: Intrauterine at 36 weeks 6 days: PProm Patient is a 25-year-old G3 with history of labor with last at 33 weeks. This was, complicated by spontaneous rupture membranes at approximately 30 weeks for which she was transferred to a tertiary care center. Over the course the next few days she did not have any further leaking and her LEIGH ANN remained stable so she was ultimately discharged to home with instructions for very close follow-up. She's been seen weekly since 34 weeks at once she was returned from high-risk. On another occasion she thought she was leaking but labs stated that she did not in her LEIGH ANN was again normal. Today at approximately 2 AM she had a large gush of fluid and an Essure was positive. On exam this morning when I checked her she was 4 cm 80% effaced -2 station a category 1 tracing was noted but she was having irregular to contractions and Pitocin augmentation of labor was initiated. Her course was also significant for as weight loss of approximately 30 pounds early in the but at time she delivered she had regained almost all of that loss however. Pertinent labs could A+ blood type, Rh and it was negative, rubella is immune, hepatitis B surface antigen/RPR and HIV were negative group B strep was also negative. Expect spontaneous vaginal delivery and she is considering options for pain control. Past Medical History Past Medical History: No Reported History History of Any Multi-Drug Resistant Organisms: None Reported Past Surgical History: Hernia Repair Additional Past Surgical History / Comment(s): exploratory lap Past Anesthesia/Blood Transfusion Reactions: No Reported Reaction Past Psychological History: No Psychological Hx Reported Smoking Status: Former smoker Past Alcohol Use History: None Reported, Rare Past Drug Use History: Marijuana Additional Drug Use History / Comment(s): pt reports marijuana use daily - Past Family History Father Family Medical History: No Reported History Medications and Allergies Home Medications Medication Instructions Recorded Confirmed Type Pnv,Calcium 72/Iron/Folic Acid 1 tab PO ONCE 11/18/20 02/02/21 History [ Plus Tablet] Allergies Allergy/AdvReac Type Severity Reaction Status Date / Time Penicillins Allergy Rash/Hives Verified 02/02/21 06:50 Exam Osteopathic Statement: *. No significant issues noted on an osteopathic structural exam other than those noted in the History and Physical/Consult. Vital Signs Temp Pulse Resp BP Pulse Ox 02/02/21 07:15 97.0 F L 83 16 125/77 99 Intake and Output 02/01/21 02/02/21 02/02/21 22:59 06:59 14:59 Other: Weight 81.647 kg 81.647 kg - OBG Physical Exam Breast: both: normal (no masses) Abdomen: bowel sounds normal, no diffuse tenderness, no bruit present, no guarding noted, no hepatomegaly, no splenomegaly, no mass Vulva: both: normal Vagina: normal moisture, no discharge Cervix: no lesion, no discharge Uterus: normal size, normal contour Adnexa: both: normal Anus/Rectum: normal perianal skin, no rectal mass, no hemorrhoids, heme negative Results Result Diagrams: 02/02/21 07:29 Abnormal Lab Results - Last 24 Hours (Table) 02/02/21 02/02/21 Range/Units 07:29 07:29 WBC 14.2 H (3.8-10.6) k/uL Neutrophils # 11.0 H (1.3-7.7) k/uL U Marijuana (THC) Screen Detected H (NotDetected)
--- NOTE | 2021-02-02 11:43 | P.PROBDLV ---
Vaginal Delivery Note - . Vaginal Delivery Note: Patient progressed complete and pushed with spontaneous vaginal delivery of a viable female over an intact perineum. Falling deliver the head from right occiput anterior position anterior posterior shoulders were easily delivered gentle downward upper traction followed by the remainder the baby. Umbilical was allowed to pulsate for 45 seconds prior to clamping and cutting. Nursery personnel was present and assumed care. Placenta was then delivered intact Pitocin was added to the IV. scores were 9 and 9 at one and 5 minutes Leslie. Placenta will be sent to pathology for delivery and advanced presentation was significant calcifications noted. Mother and baby are stable following delivery. Weight is pending.
[2021-02-02] MEDS: IBUPROFEN 600 MG TAB PO SCH ×3 (14:44→23:54)
[2021-02-02] MEDS: ACETAMINOPHEN TAB 325 MG TAB PO PRN (18:49)
[2021-02-02] MEDS: SENNOSIDES-DOCUSATE SODIUM 1 EACH TAB PO SCH (19:48)
[2021-02-03] MEDS: ACETAMINOPHEN TAB 325 MG TAB PO PRN (03:43)
--- NOTE | 2021-02-03 07:57 | P.DS ---
Providers Date of admission: 02/02/21 06:51 Expected date of discharge: 02/03/21 Attending physician: Cale Mcadams Primary care physician: Stated None Hospital Course: Patient is doing very well day 1. She is ambulating, voiding and tolerating her diet. She voices no complaints is requesting discharge home today. Vital signs are stable and afebrile. Heart regular, lungs clear, extremities without pain. Abdomen is soft uterus is firm and lochia is reported light. Assessment day 1. Plan discharged home follow up with me in 6 weeks. Patient Condition at Discharge: Good Plan - Discharge Summary New Discharge Prescriptions: No Action Pnv,Calcium 72/Iron/Folic Acid [ Plus Tablet] 1 tab PO ONCE Discharge Medication List Pnv,Calcium 72/Iron/Folic Acid [ Plus Tablet] 1 tab PO ONCE 11/18/20 [History] Follow up Appointment(s)/Referral(s): Cale Mcadams DO [Doctor of Osteopathic Medicine] - 6 Weeks Activity/Diet/Wound Care/Special Instructions: Lifting, limit stairs and driving, and pelvic rest. If any high temperatures, heavy bleeding, or severe pain call my office Discharge Disposition: HOME SELF-CARE
[2021-02-03] MEDS: SENNOSIDES-DOCUSATE SODIUM 1 EACH TAB PO SCH (08:09)
[2021-02-03] MEDS: IBUPROFEN 600 MG TAB PO SCH (08:10)
[2021-02-03 08:17] VITALS: BP 113/71
[2021-02-03 13:11] VITALS: PULSE 135; RESP 38; TEMP 98.4
== END 2021-02-03 14:52 | disposition home or self-care (01) | DRG 807 ==
LOC: FBPOP 06:30 → 4FBP 06:51
PROVIDERS: ADMIT Obstetrics & Gynecology; ATTEND Obstetrics & Gynecology
PROC: 10E0XZZ Delivery of Products of Conception, External Approach (ICD-10-PCS; principal; 2021-02-02)
DX: O60.14X0 Preterm labor third trimester with preterm delivery third trimester, not applicable or unspecified (principal); Z37.0 Single live birth; Z88.0 Allergy status to penicillin; Z3A.36 36 weeks gestation of pregnancy; Z87.19 Personal history of other diseases of the digestive system; Z87.891 Personal history of nicotine dependence; Z87.51 Personal history of pre-term labor; Z86.59 Personal history of other mental and behavioral disorders
CPT/HCPCS: 80306; 85025; 86850; 86900; 86901; 88307

== ENCOUNTER 2021-02-09 14:16 | Emergency (ER) | payer BC, OTHER ==
[2021-02-09] MEDS ORDERED: SODIUM CHLORIDE 0.9% 500 ML 500 ML IV ONE (14:44)
[2021-02-09] MEDS ORDERED: ACETAMINOPHEN TAB 500 MG TAB PO STA (14:44)
--- NOTE | 2021-02-09 14:45 | ED ---
General Adult HPI - General Chief complaint: Headache Stated complaint: headache Time Seen by Provider: 02/09/21 14:30 Source: patient, RN notes reviewed, old records reviewed Mode of arrival: ambulatory Limitations: no limitations - History of Present Illness Initial comments: 26-year-old female 7 days status post vaginal delivery presenting with chief complaint of headache and elevated blood pressure. Patient had a normal gestation with an uncomplicated vaginal delivery. She had developed a headache over the past 3 days which was predominantly the top of her head not unilateral. She denies abdominal pain or vomiting. She's had almost no vaginal bleeding. Denies lower extremity swelling. Denies dyspnea. Denies focal numbness or wea kness. She may has had some slight blurry vision. No previous history of hypertension. - Related Data Home Medications Medication Instructions Recorded Confirmed Acetaminophen Tab [Tylenol Tab] 1,000 mg PO Q6HR PRN 02/09/21 02/09/21 Allergies Allergy/AdvReac Type Severity Reaction Status Date / Time Penicillins Allergy Rash/Hives Verified 02/09/21 15:07 Review of Systems ROS Statement: Those systems with pertinent positive or pertinent negative responses have been documented in the HPI. ROS Other: All systems not noted in ROS Statement are negative. Past Medical History Past Medical History: No Reported History History of Any Multi-Drug Resistant Organisms: None Reported Past Surgical History: Hernia Repair Additional Past Surgical History / Comment(s): exploratory lap Past Anesthesia/Blood Transfusion Reactions: No Reported Reaction Past Psychological History: No Psychological Hx Reported Smoking Status: Former smoker Past Alcohol Use History: None Reported, Rare Past Drug Use History: Marijuana - Past Family History Father Family Medical History: No Reported History General Exam Limitations: no limitations General appearance: alert, in no apparent distress Head exam: Present: atraumatic, normocephalic Eye exam: Present: normal appearance, PERRL ENT exam: Present: normal exam Neck exam: Present: normal inspection. Absent: tenderness, meningismus Respiratory exam: Present: normal lung sounds bilaterally. Absent: respiratory distress Cardiovascular Exam: Absent: regular rate, normal rhythm GI/Abdominal exam: Present: soft. Absent: distended, tenderness, guarding, rebound Extremities exam: Present: normal inspection, normal capillary refill. Absent: pedal edema, calf tenderness Neurological exam: Present: alert, oriented X3, CN II-XII intact. Absent: motor sensory deficit Psychiatric exam: Present: normal affect, normal mood Skin exam: Present: warm, dry, intact. Absent: cyanosis, diaphoretic Course Vital Signs 02/09/21 02/09/21 14:20 15:19 Temperature 98.7 F Pulse Rate 68 56 L Respiratory 20 18 Rate Blood Pressure 156/86 136/85 O2 Sat by Pulse 98 96 Oximetry EKG Findings - EKG Comments: EKG Findings:: Sinus bradycardia, incomplete right bundle-branch block, rate of 56, AR interval 160, QRS duration 94, QTC 403 Medical Decision Making - Medical Decision Making 26-year-old female with headache, hypertension, 7 days vaginal delivery. Workup initiated, patient other than her hypertension has stable vitals. She has a global headache without focal neurologic findings. She has no abdominal pain or tenderness. No peripheral edema. She has a normal CBC, stable hemoglobin. Normal white lites, normal LDH, normal AST and ALT. Urinalysis is negative for proteinuria. She has a negative noncontrast CT, chest x-ray clear without pulmonary edema. I did discuss case with Dr. Mcadams, he is able to evaluate the patient emergency department and will follow-up with her as an outpatient. Strict return parameters are discussed including worsening headache, significantly elevated blood pressure, right upper quadrant pain, difficulty breathing, lower extremity swelling. - Lab Data Result diagrams: 02/09/21 14:36 02/09/21 14:36 Lab Results 02/09/21 02/09/21 02/09/21 Range/Units 14:36 14:36 14:36 WBC 9.1 (3.8-10.6) k/uL RBC 4.79 (3.80-5.40) m/uL Hgb 13.3 (11.4-16.0) gm/dL Hct 40.1 (34.0-46.0) % MCV 83.7 (80.0-100.0) fL MCH 27.7 (25.0-35.0) pg MCHC 33.1 (31.0-37.0) g/dL RDW 14.2 (11.5-15.5) % Plt Count 401 (150-450) k/uL MPV 8.1 Neutrophils % 59 % Lymphocytes % 31 % Monocytes % 5 % Eosinophils % 2 % Basophils % 1 % Neutrophils # 5.3 (1.3-7.7) k/uL Lymphocytes # 2.8 (1.0-4.8) k/uL Monocytes # 0.5 (0-1.0) k/uL Eosinophils # 0.2 (0-0.7) k/uL Basophils # 0.1 (0-0.2) k/uL PT 10.3 (9.0-12.0) sec INR 1.0 (<1.2) APTT 23.6 (22.0-30.0) sec Sodium (137-145) mmol/L Potassium (3.5-5.1) mmol/L Chloride (98-107) mmol/L Carbon Dioxide (22-30) mmol/L Anion Gap mmol/L BUN (7-17) mg/dL Creatinine (0.52-1.04) mg/dL Est GFR (CKD-EPI)AfAm (>60 ml/min/1.73 sqM) Est GFR (CKD-EPI)NonAf (>60 ml/min/1.73 sqM) Glucose (74-99) mg/dL Plasma Lactic Acid Jas (0.7-2.0) mmol/L Uric Acid (3.7-7.4) mg/dL Calcium (8.4-10.2) mg/dL Magnesium (1.6-2.3) mg/dL Total Bilirubin (0.2-1.3) mg/dL AST (14-36) U/L ALT (4-34) U/L Alkaline Phosphatase (38-126) U/L Lactate Dehydrogenase (313-618) U/L Troponin I (0.000-0.034) ng/mL NT-Pro-B Natriuret Pep pg/mL Total Protein (6.3-8.2) g/dL Albumin (3.5-5.0) g/dL Urine Color Light Yellow Urine Appearance Clear (Clear) Urine pH 6.5 (5.0-8.0) Ur Specific Qulin 1.008 (1.001-1.035) Urine Protein Negative (Negative) Urine Glucose (UA) Negative (Negative) Urine Ketones Negative (Negative) Urine Blood Moderate H (Negative) Urine Nitrite Negative (Negative) Urine Bilirubin Negative (Negative) Urine Urobilinogen <2.0 (<2.0) mg/dL Ur Leukocyte Esterase Trace H (Negative) Urine RBC <1 (0-5) /hpf Urine WBC 2 (0-5) /hpf Ur Squamous Epith Cells 1 (0-4) /hpf Urine Bacteria Rare H (None) /hpf Blood Type Blood Type Recheck Bld Type Recheck Status Antibody Screen Spec Expiration Date 02/09/21 02/09/21 02/09/21 Range/Units 14:36 14:36 14:36 WBC (3.8-10.6) k/uL RBC (3.80-5.40) m/uL Hgb (11.4-16.0) gm/dL Hct (34.0-46.0) % MCV (80.0-100.0) fL MCH (25.0-35.0) pg MCHC (31.0-37.0) g/dL RDW (11.5-15.5) % Plt Count (150-450) k/uL MPV Neutrophils % % Lymphocytes % % Monocytes % % Eosinophils % % Basophils % % Neutrophils # (1.3-7.7) k/uL Lymphocytes # (1.0-4.8) k/uL Monocytes # (0-1.0) k/uL Eosinophils # (0-0.7) k/uL Basophils # (0-0.2) k/uL PT (9.0-12.0) sec INR (<1.2) APTT (22.0-30.0) sec Sodium 138 (137-145) mmol/L Potassium 4.6 (3.5-5.1) mmol/L Chloride 109 H (98-107) mmol/L Carbon Dioxide 22 (22-30) mmol/L Anion Gap 7 mmol/L BUN 11 (7-17) mg/dL Creatinine 0.63 (0.52-1.04) mg/dL Est GFR (CKD-EPI)AfAm >90 (>60 ml/min/1.73 sqM) Est GFR (CKD-EPI)NonAf >90 (>60 ml/min/1.73 sqM) Glucose 106 H (74-99) mg/dL Plasma Lactic Acid Jas 0.9 (0.7-2.0) mmol/L Uric Acid 6.5 (3.7-7.4) mg/dL Calcium 9.9 (8.4-10.2) mg/dL Magnesium 1.7 (1.6-2.3) mg/dL Total Bilirubin 0.2 (0.2-1.3) mg/dL AST 23 (14-36) U/L ALT 34 (4-34) U/L Alkaline Phosphatase 122 (38-126) U/L Lactate Dehydrogenase 473 (313-618) U/L Troponin I <0.012 (0.000-0.034) ng/mL NT-Pro-B Natriuret Pep pg/mL Total Protein 6.8 (6.3-8.2) g/dL Albumin 3.8 (3.5-5.0) g/dL Urine Color Urine Appearance (Clear) Urine pH (5.0-8.0) Ur Specific Qulin (1.001-1.035) Urine Protein (Negative) Urine Glucose (UA) (Negative) Urine Ketones (Negative) Urine Blood (Negative) Urine Nitrite (Negative) Urine Bilirubin (Negative) Urine Urobilinogen (<2.0) mg/dL Ur Leukocyte Esterase (Negative) Urine RBC (0-5) /hpf Urine WBC (0-5) /hpf Ur Squamous Epith Cells (0-4) /hpf Urine Bacteria (None) /hpf Blood Type Blood Type Recheck Bld Type Recheck Status Antibody Screen Spec Expiration Date 02/09/21 02/09/21 Range/Units 14:36 14:36 WBC (3.8-10.6) k/uL RBC (3.80-5.40) m/uL Hgb (11.4-16.0) gm/dL Hct (34.0-46.0) % MCV (80.0-100.0) fL MCH (25.0-35.0) pg MCHC (31.0-37.0) g/dL RDW (11.5-15.5) % Plt Count (150-450) k/uL MPV Neutrophils % % Lymphocytes % % Monocytes % % Eosinophils % % Basophils % % Neutrophils # (1.3-7.7) k/uL Lymphocytes # (1.0-4.8) k/uL Monocytes # (0-1.0) k/uL Eosinophils # (0-0.7) k/uL Basophils # (0-0.2) k/uL PT (9.0-12.0) sec INR (<1.2) APTT (22.0-30.0) sec Sodium (137-145) mmol/L Potassium (3.5-5.1) mmol/L Chloride (98-107) mmol/L Carbon Dioxide (22-30) mmol/L Anion Gap mmol/L BUN (7-17) mg/dL Creatinine (0.52-1.04) mg/dL Est GFR (CKD-EPI)AfAm (>60 ml/min/1.73 sqM) Est GFR (CKD-EPI)NonAf (>60 ml/min/1.73 sqM) Glucose (74-99) mg/dL Plasma Lactic Acid Jas (0.7-2.0) mmol/L Uric Acid (3.7-7.4) mg/dL Calcium (8.4-10.2) mg/dL Magnesium (1.6-2.3) mg/dL Total Bilirubin (0.2-1.3) mg/dL AST (14-36) U/L ALT (4-34) U/L Alkaline Phosphatase (38-126) U/L Lactate Dehydrogenase (313-618) U/L Troponin I (0.000-0.034) ng/mL NT-Pro-B Natriuret Pep 184 pg/mL Total Protein (6.3-8.2) g/dL Albumin (3.5-5.0) g/dL Urine Color Urine Appearance (Clear) Urine pH (5.0-8.0) Ur Specific Qulin (1.001-1.035) Urine Protein (Negative) Urine Glucose (UA) (Negative) Urine Ketones (Negative) Urine Blood (Negative) Urine Nitrite (Negative) Urine Bilirubin (Negative) Urine Urobilinogen (<2.0) mg/dL Ur Leukocyte Esterase (Negative) Urine RBC (0-5) /hpf Urine WBC (0-5) /hpf Ur Squamous Epith Cells (0-4) /hpf Urine Bacteria (None) /hpf Blood Type A Positive Blood Type Recheck A Pos Bld Type Recheck Status No Antibody Screen NEGATIVE Spec Expiration Date 02/12/20212335 Disposition Clinical Impression: hypertension, Headache Disposition: HOME SELF-CARE Condition: Good Instructions (If sedation given, give patient instructions): Acute Headache (ED), Hypertension (ED), Preeclampsia During (ED) Is patient prescribed a controlled substance at d/c from ED?: No Referrals: Wilber Chambers MD [Primary Care Provider] - 1-2 days Cale Mcadams DO [Doctor of Osteopathic Medicine] - 1-2 days Time of Disposition: 16:48
[2021-02-09 14:51] LABS: ALT 34 U/L (4-34); AST 23 U/L (14-36); African American GFR (CKD) >90 (>60 ml/min/1.73 sqM); Albumin 3.8 g/dL (3.5-5.0); Alkaline Phosphatase 122 U/L (38-126); Anion Gap 7 mmol/L; Blood Urea Nitrogen 11 mg/dL (7-17); Calcium 9.9 mg/dL (8.4-10.2); Carbon Dioxide 22 mmol/L (22-30); Chloride 109 mmol/L (98-107); Glucose 106 mg/dL (74-99); LDH 473 U/L (313-618); Magnesium 1.7 mg/dL (1.6-2.3); Non-African American GFR(CKD) >90 (>60 ml/min/1.73 sqM); Potassium 4.6 mmol/L (3.5-5.1); Sodium 138 mmol/L (137-145); Total Bilirubin 0.2 mg/dL (0.2-1.3); Total Protein 6.8 g/dL (6.3-8.2); Uric Acid 6.5 mg/dL (3.7-7.4)
[2021-02-09 14:54] LABS: Basophils # (A) 0.1 k/uL (0-0.2); Basophils % (A) 1 %; Eosinophils # (A) 0.2 k/uL (0-0.7); Eosinophils % (A) 2 %; HCT 40.1 % (34.0-46.0); HGB 13.3 gm/dL (11.4-16.0); Lymphocytes # (A) 2.8 k/uL (1.0-4.8); Lymphocytes % (A) 31 %; MCH 27.7 pg (25.0-35.0); MCHC 33.1 g/dL (31.0-37.0); MCV 83.7 fL (80.0-100.0); Mean Platelet Volume 8.1; Monocytes # (A) 0.5 k/uL (0-1.0); Monocytes % (A) 5 %; Neutrophils # (A) 5.3 k/uL (1.3-7.7); Neutrophils % (A) 59 %; Platelet Count 401 k/uL (150-450); RBC 4.79 m/uL (3.80-5.40); RDW 14.2 % (11.5-15.5); WBC 9.1 k/uL (3.8-10.6)
[2021-02-09 14:59] LABS: Partial Thromboplastin Time 23.6 sec (22.0-30.0); Prothrombin Time 10.3 sec (9.0-12.0)
[2021-02-09 15:19] VITALS: RESP 18
--- NOTE | 2021-02-09 15:29 | CT ---
EXAMINATION TYPE: CT brain wo con DATE OF EXAM: 02/09/2021 COMPARISON: None available HISTORY: HEADACHES CT DLP: 1074.4 mGycm. Automated Exposure Control for Dose Reduction was Utilized. TECHNIQUE: CT scan of the head is performed without contrast. 2-D sagittal and coronal reformatted im ages were obtained. FINDINGS: There is no acute intracranial hemorrhage, mass effect, or midline shift identified. The ventricles and sulci are within normal limits in size. The globes are intact and the visualized sinuses are donovan ar. Benoit-white differentiation is preserved. No CT evidence of acute large vessel infarction/ischemia . Calvarium appears intact. Visualized paranasal sinuses and mastoid air cells are clear. Bilateral g lobes appear symmetric and unremarkable. IMPRESSION: No acute intracranial hemorrhage, mass effect, or midline shift is seen. If there is continued clinic al concern for acute ischemia or PRES, further evaluation with MRI is recommended.
--- NOTE | 2021-02-09 15:31 | XR ---
EXAMINATION TYPE: XR chest 2V DATE OF EXAM: 02/09/2021 COMPARISON: Chest radiograph 09/16/2020 HISTORY: , headaches TECHNIQUE: Frontal and lateral views of the chest are obtained. FINDINGS: There is no focal air space opacity, pleural effusion, or pneumothorax seen. The cardiac silhouette size is within normal limits. The osseous structures are intact. IMPRESSION: No acute cardiopulmonary process.
[2021-02-09 15:37] LABS: Appearance,Urine Clear (Clear); Bacteria,Urine Rare /hpf; Bilirubin,Urine Negative (Negative); Blood,Urine Moderate (Negative); Color,Urine Light Yellow; Glucose,Urine (UA) Negative (Negative); Ketones,Urine Negative (Negative); Leukocyte Esterase,Urine Trace (Negative); Nitrite,Urine Negative (Negative); PH, Urine 6.5 (5.0-8.0); Protein,Urine Negative (Negative); RBC,Urine <1 /hpf (0-5); Specific Gravity,Urine 1.008 (1.001-1.035); Squamous Epithelial Cell,Urine 1 /hpf (0-4); Urobilinogen,Urine <2.0 mg/dL (<2.0); WBC,Urine 2 /hpf (0-5)
--- NOTE | 2021-02-09 16:50 | P.OBCN ---
History of Present Illness Consult date: 02/09/21 Requesting physician: Go Jimenez Reason for consult: other Chief complaint: hypertension History of present illness: Patient is a 26-year-old female who delivered a viable baby proxy one week ago who began having significant headaches and some blood pressure issues on Tuesday. Today the headache became significant and due to the headache she was brought into the emergency room. Blood pressures in the emergency room revealed some mild elevations 150s over 90s and 140s over 80s to 90s. Pre-clamped labs were done and there were no elevations in liver enzymes no decrease in platelets LTH was normal and there was no protein in her urine. She has no other signs or symptoms of preeclampsia. There is no peripheral or central edema, no epigastric pain, and no visual changes. She and I did talk and I offered to admit her to the hospital for observational care which she declines. As all of her labs are normal, the CAT scan is normal, chest x-ray is normal, EKG is no rmal, and I have no other signs or symptoms of preeclampsia and it does not appear that this is atypical preeclampsia, I believe it is appropriate to discharge her home with instructions to return should her symptoms progress or worsen. At the time of my evaluation her headache has essentially completely resolved and she does not have any desire to stay in the hospital. I advised her I want to see her in the office next 2 days for repeat blood pressure check. We did talk about potentially starting labetalol, but the last hour all of her blood pressures have been 140s over 80s to 90s and would not meet any criteria for blood pressure medication. All the questions are answered for her at this time. Treatment plan as above. Past Medical History Past Medical History: No Reported History History of Any Multi-Drug Resistant Organisms: None Reported Past Surgical History: Hernia Repair Additional Past Surgical History / Comment(s): exploratory lap Past Anesthesia/Blood Transfusion Reactions: No Reported Reaction Past Psychological History: No Psychological Hx Reported Smoking Status: Former smoker Past Alcohol Use History: None Reported, Rare Past Drug Use History: Marijuana - Past Family History Father Family Medical History: No Reported History Medications and Allergies Home Medications Medication Instructions Recorded Confirmed Type Acetaminophen Tab [Tylenol Tab] 1,000 mg PO Q6HR PRN 02/09/21 02/09/21 History Allergies Allergy/AdvReac Type Severity Reaction Status Date / Time Penicillins Allergy Rash/Hives Verified 02/09/21 15:07 Exam Osteopathic Statement: *. No significant issues noted on an osteopathic structural exam other than those noted in the History and Physical/Consult. Vital Signs Temp Pulse Resp BP Pulse Ox 02/09/21 15:19 56 L 18 136/85 96 02/09/21 14:20 98.7 F 68 20 156/86 98 Intake and Output 02/09/21 02/09/21 02/09/21 06:59 14:59 22:59 Other: Weight 81.647 kg Results Result Diagrams: 02/09/21 14:36 02/09/21 14:36 Abnormal Lab Results - Last 24 Hours (Table) 02/09/21 02/09/21 Range/Units 14:36 14:36 Chloride 109 H (98-107) mmol/L Glucose 106 H (74-99) mg/dL Urine Blood Moderate H (Negative) Ur Leukocyte Esterase Trace H (Negative) Urine Bacteria Rare H (None) /hpf
[2021-02-09 16:54] VITALS: BP 144/89; PULSE 54; TEMP 97.6
[2021-02-10 16:13] LABS: Creatinine,Urine Random 29.8 mg/dL; Protein/Creatinine Ratio,Urine 0.1
== END 2021-02-09 16:56 | disposition home or self-care (01) ==
LOC: EC 14:16
DX: O16.5 Unspecified maternal hypertension, complicating the puerperium (principal); O90.89 Other complications of the puerperium, not elsewhere classified; F12.90 Cannabis use, unspecified, uncomplicated; Z88.0 Allergy status to penicillin; Z87.891 Personal history of nicotine dependence
CPT/HCPCS: 36415; 70450; 71046; 80053; 81001; 82570; 83605; 83615; 83735; 83880; 84156; 84484; 84550; 85025; 85610; 85730; 86850; 86900; 86901; 93005; 99285

== ENCOUNTER 2021-10-25 08:32 | Emergency (ER) | payer BC, OTHER ==
[2021-10-25 08:37] VITALS: BP 105/56; PULSE 61; RESP 16; TEMP 98.2
[2021-10-25] MEDS ORDERED: KETOROLAC 15 MG/ML 1 ML VIAL IM STA (08:46)
[2021-10-25] MEDS ORDERED: CYCLOBENZAPRINE 5 MG TAB PO STA (08:47)
--- NOTE | 2021-10-25 08:50 | ED ---
Back Pain HPI - General Chief Complaint: Back Pain/Injury Stated Complaint: lung pain Time Seen by Provider: 10/25/21 08:38 Source: patient, RN notes reviewed Limitations: no limitations - History of Present Illness Initial Comments: This is a 26-year-old female who presents emergency department for back pain. Patient states that she was diagnosed with COVID 3 weeks ago, and a couple days after the diagnosis, she acquired pain in the upper to mid back. She does state that she has some residual shortness of breath as well. Denies any coughing or fevers. She has tried ibuprofen, Tylenol, lidocaine patches, and Fioricet for the pain with no relief. Denies any fevers, chills, sore throat, cough, dyspnea, chest pain, palpitations, abdominal pain, nausea, vomiting, diarrhea, or headaches. MD Complaint: back pain Onset/Timin -: week(s) Similar Symptoms Previously: No Treatments Prior to Arrival: NSAIDS - Related Data Home Medications Medication Instructions Recorded Confirmed Acetaminophen Tab [Tylenol Tab] 1,000 mg PO Q6HR PRN 02/09/21 02/09/21 Previous Rx's Medication Instructions Recorded Albuterol Sulfate [Proair Hfa] 1 - 2 puff INHALATION Q6HR PRN 10/25/21 #8.5 gm Diclofenac Sodium [Voltaren] 75 mg PO BID PRN #20 tab 10/25/21 Allergies Allergy/AdvReac Type Severity Reaction Status Date / Time Penicillins Allergy Rash/Hives Verified 10/25/21 08:37 Review of Systems ROS Statement: Those systems with pertinent positive or pertinent negative responses have been documented in the HPI. ROS Other: All systems not noted in ROS Statement are negative. Past Medical History Past Medical History: No Reported History History of Any Multi-Drug Resistant Organisms: None Reported Past Surgical History: Hernia Repair Additional Past Surgical History / Comment(s): exploratory lap Past Anesthesia/Blood Transfusion Reactions: No Reported Reaction Past Psychological History: No Psychological Hx Reported Smoking Status: Former smoker Past Alcohol Use History: Rare Past Drug Use History: Marijuana - Past Family History Father Family Medical History: No Reported History General Exam Limitations: no limitations General appearance: alert, in distress Head exam: Present: atraumatic, normocephalic, normal inspection Respiratory exam: Present: normal lung sounds bilaterally. Absent: respiratory distress, wheezes, rales, rhonchi, stridor Cardiovascular Exam: Present: regular rate, normal rhythm, normal heart sounds. Absent: systolic murmur, diastolic murmur, rubs, gallop, clicks Back exam: Present: other (Tenderness to the mid central back) Neurological exam: Present: alert, oriented X3, CN II-XII intact Psychiatric exam: Present: normal affect, normal mood Skin exam: Present: warm, dry, intact, normal color. Absent: rash Course Vital Signs 10/25/21 08:34 Temperature 98.2 F Pulse Rate 61 Respiratory 16 Rate Blood Pressure 105/56 O2 Sat by Pulse 99 Oximetry Medical Decision Making - Medical Decision Making This is a 26-year-old female who presents to the emergency department for mid back pain and shortness of breath. Given that this started a couple of days after she had COVID, this is most likely related to an inflammatory response from COVID. Discussed that this can last for several weeks to months following infection. Chest x-ray obtained, revealing no abnormalities. IM Toradol and Flexeril administered in the emergency department. Patient states that this did not offer much relief, however she requests discharge, and states that she essentially just wanted to know the results of the chest x-ray. Discussed discharging her with albuterol and a stronger anti-inflammatory, patient is agreeable to this. Prescription for albuterol and diclofenac sent to the patient's pharmacy. She is instructed to avoid other anti-inflammatories with the diclofenac. Also instructed her to apply heat to the back. Return precautions reviewed in depth, the patient is instructed to return to the emergency department with any new, worsening, or concerning symptoms. Patient verbalized understanding. This case was discussed in detail with the attending ED physician. Presentation, findings, and treatment plan discussed in detail as well. - Radiology Data Radiology results: report reviewed, image reviewed Disposition Clinical Impression: Mid back pain Disposition: HOME SELF-CARE Instructions (If sedation given, give patient instructions): Back Pain (ED), Long COVID (ED) Additional Instructions: Return to the emergency department with any new, worsening, or concerning symptoms. Back pain and shortness of breath from COVID may last for several weeks to months after infection. Try the diclofenac twice daily for pain. Avoid any other anti-inflammatories when taking this. Take Tylenol with the diclofenac. If the diclofenac is not helpful, you can use an alternative anti- inflammatory. Apply heat to the back as well. Follow-up with your primary care for further evaluation and management. Prescriptions: Albuterol Sulfate [Proair Hfa] 1 - 2 puff INHALATION Q6HR PRN #8.5 gm PRN Reason: Shortness Of Breath Diclofenac Sodium [Voltaren] 75 mg PO BID PRN #20 tab PRN Reason: Pain Is patient prescribed a controlled substance at d/c from ED?: No Referrals: None,Stated [Primary Care Provider] - 1-2 days
--- NOTE | 2021-10-25 08:57 | XR ---
EXAMINATION TYPE: XR chest 2V DATE OF EXAM: 10/25/2021 COMPARISON: Chest x-ray February 09, 2021 HISTORY: Posterior chest pain. Recent COVID. TECHNIQUE: Frontal and lateral views of the chest are obtained. FINDINGS: There is no suspicious focal air space opacity, pleural effusion, or pneumothorax seen. T he cardiac silhouette size is within normal limits. The osseous structures are intact. IMPRESSION: No acute cardiopulmonary process. No significant change from prior.
[2021-10-25] MEDS ORDERED: methylPREDNISolone SOD SUCCI 125 MG/2 ML VIAL IM ONE (09:16)
== END 2021-10-25 09:41 | disposition home or self-care (01) ==
LOC: EC 08:32
DX: M54.6 Pain in thoracic spine (principal); R06.02 Shortness of breath; Z87.891 Personal history of nicotine dependence; Z88.0 Allergy status to penicillin; Z86.16 Personal history of COVID-19
CPT/HCPCS: 71046; 99284; 96372; J1885

== ENCOUNTER 2022-02-04 11:15 | Emergency (ER) | payer BC, OTHER ==
[2022-02-04 11:40] VITALS: BP 113/80; PULSE 69; RESP 14; TEMP 97.9
[2022-02-04 12:14] LABS: Basophils # (A) 0.1 k/uL (0-0.2); Basophils % (A) 1 %; Eosinophils # (A) 0.4 k/uL (0-0.7); Eosinophils % (A) 4 %; HCT 46.7 % (34.0-46.0); HGB 14.2 gm/dL (11.4-16.0); Lymphocytes # (A) 1.7 k/uL (1.0-4.8); Lymphocytes % (A) 19 %; MCHC 30.5 g/dL (31.0-37.0); MCV 88.4 fL (80.0-100.0); Mean Platelet Volume 8.5; Monocytes # (A) 0.5 k/uL (0-1.0); Monocytes % (A) 6 %; Neutrophils # (A) 5.9 k/uL (1.3-7.7); Neutrophils % (A) 69 %; Platelet Count 222 k/uL (150-450); RBC 5.28 m/uL (3.80-5.40); RDW 12.7 % (11.5-15.5); WBC 8.5 k/uL (3.8-10.6)
[2022-02-04 12:24] LABS: Partial Thromboplastin Time 24.2 sec (22.0-30.0); Prothrombin Time 10.7 sec (9.0-12.0)
[2022-02-04 12:31] LABS: ALT 26 U/L (4-34); AST 23 U/L (14-36); African American GFR (CKD) >90 (>60 ml/min/1.73 sqM); Albumin 4.6 g/dL (3.5-5.0); Alkaline Phosphatase 62 U/L (38-126); Anion Gap 10 mmol/L; Blood Urea Nitrogen 11 mg/dL (7-17); Calcium 9.6 mg/dL (8.4-10.2); Carbon Dioxide 24 mmol/L (22-30); Chloride 105 mmol/L (98-107); Glucose 102 mg/dL (74-99); Non-African American GFR(CKD) >90 (>60 ml/min/1.73 sqM); Potassium 4.7 mmol/L (3.5-5.1); Sodium 139 mmol/L (137-145); Total Bilirubin 0.4 mg/dL (0.2-1.3); Total Protein 7.6 g/dL (6.3-8.2)
== END 2022-02-04 13:23 | disposition left against medical advice (07) ==
LOC: EC 11:15
DX: Z53.21 Procedure and treatment not carried out due to patient leaving prior to being seen by health care provider (principal); R11.10 Vomiting, unspecified
CPT/HCPCS: 36415; 80053; 84484; 85025; 85610; 85730; 93005; 99499

== ENCOUNTER 2022-03-08 09:03 | Emergency (ER) | payer BC, OTHER ==
[2022-03-08 09:25] VITALS: RESP 18; TEMP 98
[2022-03-08] MEDS ORDERED: SODIUM CHLORIDE 0.9% 1,000 ML IV STA (09:31)
[2022-03-08 10:04] LABS: Basophils % (A) 0 %; Eosinophils # (A) 0.4 k/uL (0-0.7); Eosinophils % (A) 5 %; HCT 43.3 % (34.0-46.0); HGB 13.6 gm/dL (11.4-16.0); Lymphocytes # (A) 2.2 k/uL (1.0-4.8); Lymphocytes % (A) 23 %; MCH 27.5 pg (25.0-35.0); MCHC 31.3 g/dL (31.0-37.0); MCV 87.9 fL (80.0-100.0); Mean Platelet Volume 8.5; Monocytes # (A) 0.5 k/uL (0-1.0); Monocytes % (A) 5 %; Neutrophils # (A) 6.3 k/uL (1.3-7.7); Neutrophils % (A) 66 %; Platelet Count 216 k/uL (150-450); RBC 4.93 m/uL (3.80-5.40); RDW 12.9 % (11.5-15.5); WBC 9.5 k/uL (3.8-10.6)
[2022-03-08 10:24] LABS: ALT 29 U/L (4-34); AST 29 U/L (14-36); African American GFR (CKD) >90 (>60 ml/min/1.73 sqM); Albumin 4.3 g/dL (3.5-5.0); Alkaline Phosphatase 40 U/L (38-126); Anion Gap 11 mmol/L; Blood Urea Nitrogen 10 mg/dL (7-17); Calcium 9.2 mg/dL (8.4-10.2); Carbon Dioxide 21 mmol/L (22-30); Chloride 106 mmol/L (98-107); Glucose 112 mg/dL (74-99); Magnesium 1.6 mg/dL (1.6-2.3); Non-African American GFR(CKD) >90 (>60 ml/min/1.73 sqM); Sodium 138 mmol/L (137-145); Total Bilirubin 0.4 mg/dL (0.2-1.3); Total Protein 6.8 g/dL (6.3-8.2)
[2022-03-08] MEDS ORDERED: TOPICAL SKIN ADHESIVE 1 EACH AMP TOPICAL ONE (10:28)
--- NOTE | 2022-03-08 10:30 | ED ---
General Adult HPI - General Chief complaint: Syncope Stated complaint: syncope, hit head Time Seen by Provider: 03/08/22 09:04 Source: patient, RN notes reviewed, old records reviewed Mode of arrival: wheelchair Limitations: no limitations - History of Present Illness Initial comments: 27-year-old female presents with syncopal episode. Patient denied any preceding symptoms. She's gotten up this morning to send her child off to school. She returned to the kitchen where she remembers standing in the next thing she knew she woke up on the floor. She believes she could've been unconscious for some time. She has laceration to the left periorbital region with associated pain. No other significant headache. She denied any preceding symptoms, no chest pain or palpitations. She states she has similar episode 2 weeks ago and has sought medical care but was not evaluated due to long wait time. - Related Data Home Medications Medication Instructions Recorded Confirmed No Known Home Medications 03/08/22 03/08/22 Allergies Allergy/AdvReac Type Severity Reaction Status Date / Time Penicillins Allergy Rash/Hives Verified 03/08/22 10:55 Review of Systems ROS Statement: Those systems with pertinent positive or pertinent negative responses have been documented in the HPI. ROS Other: All systems not noted in ROS Statement are negative. Past Medical History Past Medical History: No Reported History History of Any Multi-Drug Resistant Organisms: None Reported Past Surgical History: Hernia Repair Additional Past Surgical History / Comment(s): exploratory lap Past Anesthesia/Blood Transfusion Reactions: No Reported Reaction Past Psychological History: No Psychological Hx Reported Smoking Status: Current every day smoker Past Alcohol Use History: Rare Past Drug Use History: Marijuana - Past Family History Father Family Medical History: No Reported History General Exam Limitations: no limitations General appearance: alert, in no apparent distress Head exam: Present: atraumatic, normocephalic Eye exam: Present: periorbital swelling (1 cm laceration lateral periorbital region left eye) Neck exam: Present: normal inspection Respiratory exam: Present: normal lung sounds bilaterally. Absent: respiratory distress, wheezes Cardiovascular Exam: Present: normal rhythm, bradycardia GI/Abdominal exam: Present: soft. Absent: distended, tenderness Extremities exam: Present: normal inspection, normal capillary refill. Absent: pedal edema Neurological exam: Present: alert, oriented X3, CN II-XII intact. Absent: motor sensory deficit Psychiatric exam: Present: normal affect, normal mood Skin exam: Present: warm, dry Course Vital Signs 03/08/22 03/08/22 09:21 11:00 Temperature 98.0 F Pulse Rate 57 L 52 L Respiratory 18 18 Rate Blood Pressure 115/74 106/70 O2 Sat by Pulse 100 98 Oximetry EKG Findings - EKG Comments: EKG Findings:: EKG: Sinus bradycardia with sinus arrhythmia rate of 49, TX interval 184, QRS duration 97, QTC [address] segment elevation, incomplete right bundle-branch block. Procedures - Laceration Laceration #1 Consent Obtained: verbal consent Indication: laceration Site: face Size (cm): 1 Description: linear Depth: simple, single layer Pre-repair: irrigated extensively Type of Sutures: other (Skin adhesive) Patient Tolerated Procedure: well, no complications Medical Decision Making - Medical Decision Making 27-year-old female with syncopal episode, hit her head with small laceration above the left eyebrow which is repaired with skin adhesive. Patient is in sinus bradycardia with sinus arrhythmia. Blood pressure stable. She had not eaten or had anything to drink yet. This may be orthostatic in nature related to volume depletion. Laboratory testing is unremarkable, imaging of the chest and CT of the brain is negative for acute findings. Patient does not currently have a primary. She's given referral both cardiology for possible event monitor and to primary care physician. I did discuss case with Dr. Petersen who agrees with this disposition: For cardiology. Patient given IV fluids in the emergency department and encouraged to eat and increase fluid intake. - Lab Data Result diagrams: 03/08/22 10:00 03/08/22 10:00 Lab Results 03/08/22 03/08/22 03/08/22 Range/Units 09:31 10:00 10:00 WBC 9.5 (3.8-10.6) k/uL RBC 4.93 (3.80-5.40) m/uL Hgb 13.6 (11.4-16.0) gm/dL Hct 43.3 (34.0-46.0) % MCV 87.9 (80.0-100.0) fL MCH 27.5 (25.0-35.0) pg MCHC 31.3 (31.0-37.0) g/dL RDW 12.9 (11.5-15.5) % Plt Count 216 (150-450) k/uL MPV 8.5 Neutrophils % 66 % Lymphocytes % 23 % Monocytes % 5 % Eosinophils % 5 % Basophils % 0 % Neutrophils # 6.3 (1.3-7.7) k/uL Lymphocytes # 2.2 (1.0-4.8) k/uL Monocytes # 0.5 (0-1.0) k/uL Eosinophils # 0.4 (0-0.7) k/uL Basophils # 0.0 (0-0.2) k/uL PT 10.8 (9.0-12.0) sec INR 1.0 (<1.2) APTT 24.7 (22.0-30.0) sec Sodium (137-145) mmol/L Potassium (3.5-5.1) mmol/L Chloride (98-107) mmol/L Carbon Dioxide (22-30) mmol/L Anion Gap mmol/L BUN (7-17) mg/dL Creatinine (0.52-1.04) mg/dL Est GFR (CKD-EPI)AfAm (>60 ml/min/1.73 sqM) Est GFR (CKD-EPI)NonAf (>60 ml/min/1.73 sqM) Glucose (74-99) mg/dL Calcium (8.4-10.2) mg/dL Magnesium (1.6-2.3) mg/dL Total Bilirubin (0.2-1.3) mg/dL AST (14-36) U/L ALT (4-34) U/L Alkaline Phosphatase (38-126) U/L Troponin I (0.000-0.034) ng/mL Total Protein (6.3-8.2) g/dL Albumin (3.5-5.0) g/dL Urine Color Yellow Urine Appearance Cloudy H (Clear) Urine pH 6.5 (5.0-8.0) Ur Specific [place] 1.023 (1.001-1.035) Urine Protein Trace H (Negative) Urine Glucose (UA) Negative (Negative) Urine Ketones Negative (Negative) Urine Blood Negative (Negative) Urine Nitrite Negative (Negative) Urine Bilirubin Negative (Negative) Urine Urobilinogen <2.0 (<2.0) mg/dL Ur Leukocyte Esterase Negative (Negative) Urine RBC 8 H (0-5) /hpf Urine WBC 14 H (0-5) /hpf Ur Squamous Epith Cells 18 H (0-4) /hpf Urine Bacteria Rare H (None) /hpf Urine Mucus Moderate H (None) /hpf Urine Yeast (Budding) Occasional H (None) /hpf Urine HCG, Qual (Not Detectd) 03/08/22 03/08/22 03/08/22 Range/Units 10:00 10:00 10:00 WBC (3.8-10.6) k/uL RBC (3.80-5.40) m/uL Hgb (11.4-16.0) gm/dL Hct (34.0-46.0) % MCV (80.0-100.0) fL MCH (25.0-35.0) pg MCHC (31.0-37.0) g/dL RDW (11.5-15.5) % Plt Count (150-450) k/uL MPV Neutrophils % % Lymphocytes % % Monocytes % % Eosinophils % % Basophils % % Neutrophils # (1.3-7.7) k/uL Lymphocytes # (1.0-4.8) k/uL Monocytes # (0-1.0) k/uL Eosinophils # (0-0.7) k/uL Basophils # (0-0.2) k/uL PT (9.0-12.0) sec INR (<1.2) APTT (22.0-30.0) sec Sodium 138 (137-145) mmol/L Potassium 4.4 (3.5-5.1) mmol/L Chloride 106 (98-107) mmol/L Carbon Dioxide 21 L (22-30) mmol/L Anion Gap 11 mmol/L BUN 10 (7-17) mg/dL Creatinine 0.51 L (0.52-1.04) mg/dL Est GFR (CKD-EPI)AfAm >90 (>60 ml/min/1.73 sqM) Est GFR (CKD-EPI)NonAf >90 (>60 ml/min/1.73 sqM) Glucose 112 H (74-99) mg/dL Calcium 9.2 (8.4-10.2) mg/dL Magnesium 1.6 (1.6-2.3) mg/dL Total Bilirubin 0.4 (0.2-1.3) mg/dL AST 29 (14-36) U/L ALT 29 (4-34) U/L Alkaline Phosphatase 40 (38-126) U/L Troponin I <0.012 (0.000-0.034) ng/mL Total Protein 6.8 (6.3-8.2) g/dL Albumin 4.3 (3.5-5.0) g/dL Urine Color Urine Appearance (Clear) Urine pH (5.0-8.0) Ur Specific [place] (1.001-1.035) Urine Protein (Negative) Urine Glucose (UA) (Negative) Urine Ketones (Negative) Urine Blood (Negative) Urine Nitrite (Negative) Urine Bilirubin (Negative) Urine Urobilinogen (<2.0) mg/dL Ur Leukocyte Esterase (Negative) Urine RBC (0-5) /hpf Urine WBC (0-5) /hpf Ur Squamous Epith Cells (0-4) /hpf Urine Bacteria (None) /hpf Urine Mucus (None) /hpf Urine Yeast (Budding) (None) /hpf Urine HCG, Qual Not Detected (Not Detectd) Disposition Clinical Impression: Syncope, Laceration Disposition: HOME SELF-CARE Condition: Good Instructions (If sedation given, give patient instructions): Laceration (ED), Dehydration (ED), Syncope (DC) Is patient prescribed a controlled substance at d/c from ED?: No Referrals: None,Stated [Primary Care Provider] - 1-2 days Trae Ham MD [REFERRING] - 1-2 days Sally Petersen MD [STAFF PHYSICIAN] - 1-2 days Time of Disposition: 11:48
[2022-03-08 10:31] LABS: Appearance,Urine Cloudy (Clear); Bilirubin,Urine Negative (Negative); Blood,Urine Negative (Negative); Budding Yeast,Urine Occasional /hpf; Color,Urine Yellow; Glucose,Urine (UA) Negative (Negative); Ketones,Urine Negative (Negative); Leukocyte Esterase,Urine Negative (Negative); Mucus,Urine Moderate /hpf; Nitrite,Urine Negative (Negative); PH, Urine 6.5 (5.0-8.0); Protein,Urine Trace (Negative); RBC,Urine 8 /hpf (0-5); Specific Gravity,Urine 1.023 (1.001-1.035); Squamous Epithelial Cell,Urine 18 /hpf (0-4); Urobilinogen,Urine <2.0 mg/dL (<2.0); WBC,Urine 14 /hpf (0-5)
[2022-03-08 10:31] LABS: Partial Thromboplastin Time 24.7 sec (22.0-30.0); Prothrombin Time 10.8 sec (9.0-12.0)
[2022-03-08 10:37] LABS: Bacteria,Urine Rare /hpf
[2022-03-08 10:43] LABS: Potassium 4.4 mmol/L (3.5-5.1)
--- NOTE | 2022-03-08 10:50 | XR ---
EXAMINATION TYPE: XR chest 2V DATE OF EXAM: 03/08/2022 COMPARISON: Chest x-ray October 25, 2021 HISTORY: Syncope and weakness. TECHNIQUE: Frontal and lateral views of the chest are obtained. FINDINGS: There is no focal air space opacity, pleural effusion, or pneumothorax seen. The cardiac silhouette size is stable and within normal limits. The osseous structures are intact. Overlying EK G leads on current study. IMPRESSION: No acute process. No significant change from prior.
[2022-03-08] MEDS ORDERED: ACETAMINOPHEN TAB 500 MG TAB PO STA (11:06)
--- NOTE | 2022-03-08 11:15 | CT ---
EXAMINATION TYPE: CT brain wo con DATE OF EXAM: 03/08/2022 COMPARISON: CT brain February 09, 2021 HISTORY: Syncope, head injury CT DLP: 1098.4 mGycm. Automated Exposure Control for Dose Reduction was Utilized. TECHNIQUE: CT scan of the head is performed without contrast. FINDINGS: There is no acute intracranial hemorrhage, mass effect, or midline shift identified. The ventricles and sulci are within normal limits in size. Benoit-white matter differentiation is maintai caridad. Persistent moderate mucosal thickening with some dependent fluid in the right maxillary sinus. M ild mucosal thickening posteriorly in the left maxillary sinus is seen. Globes are intact bilaterally . IMPRESSION: No acute intracranial hemorrhage or midline shift is seen. Acute on chronic right maxill vickie sinus disease is noted.
[2022-03-08] MEDS ORDERED: KETOROLAC 15 MG/ML 1 ML VIAL IVP STA (11:19)
[2022-03-08 12:04] VITALS: BP 112/67; PULSE 58
== END 2022-03-08 12:04 | disposition home or self-care (01) ==
LOC: EC 09:03
DX: S01.112A Laceration without foreign body of left eyelid and periocular area, initial encounter (principal); R55 Syncope and collapse; F17.200 Nicotine dependence, unspecified, uncomplicated; F12.90 Cannabis use, unspecified, uncomplicated; Z88.0 Allergy status to penicillin; W22.8XXA Striking against or struck by other objects, initial encounter
CPT/HCPCS: 12011; 36415; 70450; 71046; 80053; 81001; 81025; 83735; 84484; 85025; 85610; 85730; 87086; 93005; 96361; 96374; 99284